=== PATIENT | male | born 1940 | race Caucasian/White ===

== ENCOUNTER 2018-05-13 13:37 | Inpatient (IN) | payer OTHER ==
--- OUTSIDE RECORDS SUMMARY | 2018-05-13 13:56 | XMS REPORT | Clinical Summary ---
:1940 Author Organization [facility] Address [address] [place] [address] Care Team Providers Name Role Phone Samson Rose MD Primary Care Provider Allergies Active Allergy Reactions Severity Noted Date Comments Morphine Other (See Comments) High 09/06/2016 Hallucinations, Disorientation, & Agitation Current Medications Prescription Sig. Disp. Refills Start Date End Date Status tiotropium bromide Inhale 1 Act Active (SPIRIVA RESPIMAT) daily. 2.5 mcg/actuation mist tamsulosin Take 0.4 mg by Active (FLOMAX) 0.4 mg mouth every capsule,extended morning. release 24hr acetaminophen Take 500 mg by Active (TYLENOL) 500 MG mouth nightly as tablet needed for mild pain. polyethylene Take 17 g by Active glycol (MIRALAX) mouth daily. 17 gram packet sulfamethoxazole-t Take 1 tablet by Active rimethoprim mouth 2 (two) (BACTRIM SS) times a day. 400-80 mg per !!!!!(Time tablet Critical) PLEASE GIVE AT 8AM & 8PM)!!!!! aspirin (ECOTRIN) Take 81 mg by Active 81 MG enteric mouth daily. coated tablet nitroglycerin Place 0.4 mg Active (NITROSTAT) 0.4 MG under the tongue SL tablet every 5 (five) minutes as needed for chest pain. docusate sodium Take 100 mg by Active (COLACE) 100 MG mouth every capsule morning. clopidogrel Take 75 mg by Active (PLAVIX) 75 mg mouth daily. tablet furosemide (LASIX) Take 80 mg by Active 80 mg tablet mouth 2 (two) times a day. (AM & 5PM) fluticasone-vilant Inhale 1 Active daria (BREO inhalations once ELLIPTA) 100-25 daily. mcg/dose blister with device powder for inhalation ipratropium-albute Take 3 mL by Active rol (DUO-NEB) nebulization 3 0.5-2.5 mg/mL (three) times a nebulizer day. metoprolol Take 12.5 mg by Active tartrate mouth 2 (two) (LOPRESSOR) 25 mg times a day. tablet NIFEdipine XL Take 30 mg by Active (PROCARDIA XL) 30 mouth daily. MG 24 hr tablet potassium chloride Take 20 mEq by Active (K-DUR) 20 MEQ CR mouth daily. tablet albuterol Inhale 2 puffs Active (VENTOLIN HFA) 90 every 6 (six) mcg/actuation hours as needed inhaler for wheezing or shortness of breath. levothyroxine Take 50 mcg by Active (SYNTHROID, mouth every LEVOXYL) 50 mcg morning. tablet metoprolol Take 12.5 mg by 10/29/19 Discontinued tartrate mouth 2 (two) 18 (LOPRESSOR) 25 mg times a day. tablet NIFEdipine XL Take 30 mg by 06/29/20 Discontinued (PROCARDIA XL) 30 mouth every 17 MG 24 hr tablet morning. furosemide (LASIX) Take 40 mg by 10/29/19 Discontinued 40 mg tablet mouth daily. 18 Takes 20mg at night ondansetron Take 4 mg by 10/29/19 Discontinued (ZOFRAN) 4 MG mouth every 8 18 tablet (eight) hours as needed for nausea or vomiting. potassium chloride Take 20 mEq by 11/07/19 Discontinued (KLOR-CON) 20 mEq mouth daily. [address] 1 capsule 10/29/19 Discontinued (SPIRIVA) 18 mcg into inhaler and 18 per inhalation inhale once capsule daily. lidocaine Place 1 patch on 10/29/19 Discontinued (LIDODERM) 5 % the skin daily. 18 Remove & Discard patch within 12 hours or as directed by furosemide (LASIX) Take 20 mg by 10/29/19 Discontinued 20 mg tablet mouth nightly. 18 albuterol (PROAIR Inhale 2 puffs 11/07/19 Discontinued HFA,PROVENTIL every 6 (six) 18 HFA,VENTOLIN HFA) hours as needed 90 mcg/actuation for wheezing. inhaler alum-mag Take 30 mL by 06/26/2017 07/26/20 hydroxide-simeth mouth 4 (four) 17 (MAALOX PLUS) times a day as 200-200-20 mg/5 mL needed for suspension indigestion for up to 30 days. bisacodyl Insert 1 06/26/2017 07/26/20 (DULCOLAX) 10 mg suppository (10 17 suppository mg total) into the rectum daily as needed for constipation for up to 30 days. clonIDINE Take 1 tablet 60 tablet 0 06/26/2017 07/01/20 (CATAPRES) 0.1 MG (0.1 mg total) by 17 tablet mouth 2 (two) times a day for 5 days. HYDROcodone-acetam Take 1 tablet by 06/26/2017 07/06/20 inophen (NORCO) mouth every 8 17 10-325 mg per (eight) hours as tablet needed for moderate pain for up to 10 days. Max Daily Amount: 3 tablets docusate sodium Take 1 capsule 60 capsule 0 06/26/2017 07/26/20 (COLACE) 100 MG (100 mg total) by 17 capsule mouth 2 (two) times a day for 30 days. NIFEdipine XL Take 1 tablet (90 30 tablet 0 06/30/2017 07/30/19 (PROCARDIA XL) 90 mg total) by 18 MG 24 hr tablet mouth daily for 30 days. metoprolol 1 tablet 11/07/19 Discontinued succinate XL 18 (TOPROL-XL) 25 mg 24 hr tablet NIFEdipine CC 1 tablet on an 11/07/19 Discontinued (ADALAT CC) 30 MG empty stomach 18 24 hr tablet IPRATROPIUM Inhale 0.5 mg. 11/07/19 Discontinued BROMIDE INHL 18 Active Problems Problem Noted Date Chronic obstructive pulmonary disease (HCC) 11/06/2017 Hip fracture ([facility]) 06/14/2017 Acute post-hemorrhagic anemia 02/26/2017 COPD exacerbation ([facility]) 02/19/2017 Acute deep vein thrombosis (DVT) of right lower extremity ([facility]) 02/12/2017 Cellulitis 01/22/2017 PVD (peripheral vascular disease) ([facility]) 2016 Infection of postoperative wound due to methicillin-resistant 11/30/2016 Staphylococcus aureus PAD (peripheral artery disease) ([facility]) 11/27/2016 Last Assessment & Plan: Doing well with Anti-platelet regime. 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 Postoperative anemia due to acute blood loss 09/27/2016 Essential hypertension 09/27/2016 Chronic deep vein thrombosis (DVT) of both lower extremities (HCC) 09/27/2016 Fever 09/10/2016 Encounters Date Type Specialty Care Team Description 02/03/2018 Office Visit Cardiovascular Mariela PAD (peripheral [place] artery disease) MD Marck (Primary Dx) 02/03/2018 Hospital Radiology Alekare, PAD (peripheral Encounter [place] artery disease) MD Marck 11/06/2017 - [facility] General Internal KurtJatin Acute on chronic diastolic CHF (congestive heart failure), NYHA class 4 (Primary Dx); 11/10/2017 Encounter Medicine MD Wen Chronic obstructive pulmonary disease, unspecified COPD type; Ajit Mcclendon MD Pneumonia of left lung due to infectious organism, unspecified part of lung; Congestive heart failure, unspecified congestive heart failure chronicity, unspecified congestive heart failure type; OPAL (acute kidney injury) 10/28/2017 Office Visit Cardiovascular Mariela PAD (peripheral [place] artery disease) MD Marck (Primary Dx) 10/28/2017 Ancillary Orders Cardiovascular Mariela PAD (peripheral [place] artery disease) MD Marck 06/22/2017 Anesthesia Event Orthopedic Surgery Niesha Coley MD 06/22/2017 Procedure Pass Orthopedic Surgery 06/22/2017 Surgery Orthopedic Surgery Phillip Saleh HEMIARTHROPLASTY, MD HIP 06/16/2017 Orders Only Procedural Cardiology Nicki Black 06/15/2017 Orders Only Procedural Cardiology Nicki Black 06/14/2017 - Hospital Orthopedic Surgery Ajit Mcclendon MD Closed fracture of 06/29/2017 Encounter left hip, initial encounter (Primary Dx) after 05/12/2017 Immunizations Name Dates Previously Given Next Due FLUCELVAX QUAD PF (0.5mL syringe) 06/29/2017 Family History Medical History Relation Name Comments Heart disease Father age 55 Diabetes Mother Relation Name Status Comments Father Mother Social History Tobacco Use Types Packs/Day Years Used Date Former Smoker Cigarettes 1 50 Quit: 09/06/2016 Smokeless Tobacco: Never Used Tobacco Cessation: Ready to Quit: No; Counseling Given: No Alcohol Use Drinks/Week oz/Week Comments No Sex Assigned at Date Recorded Not on file Last Filed Vital Signs Vital Sign Reading Time Taken Blood Pressure 94/55 02/03/2018 10:09 AM CDT Pulse 91 02/03/2018 10:09 AM CDT Temperature 35.8 C (96.4 F) 02/03/2018 10:09 AM CDT Respiratory Rate 14 02/03/2018 10:09 AM CDT Oxygen Saturation 91% 11/10/2017 8:05 AM CDT Inhaled Oxygen Concentration - - Weight 76.2 kg (168 lb) 02/03/2018 10:09 AM CDT Height 167.6 cm (5' 6") 02/03/2018 10:09 AM CDT Body Mass Index 27.12 02/03/2018 10:09 AM CDT Plan of Treatment Date Type Specialty Care Team Description 08/11/2018 Appointment Procedural Cardiology Mati Sierra MD [address] [facility] [address] [place] [address] [id number] 08/11/2018 Office Visit Cardiovascular Mati Sierra MD [address] [address] [phone] Health Maintenance Due Date Last Done Comments SHINGRIX VACCINE (#1) 1988 ZOSTER VACCINE 1998 PNEUMOCOCCAL POLYSACCHARIDE VACCINE AGE 65 AND OVER 12/17/2003 PNEUMOCOCCAL-13 12/17/2003 INFLUENZA VACCINE 02/24/2018 06/29/2017 Implants Implanted Type Area Steel Loader Device Expiration Model / Identifier Date Serial / Lot Cup Actblr Bipolar [id number] Ringloc - [id number] Hip Joint Left: [employer] 01/16/2022 11 [id number] / Implanted: Qty: 1 on 06/22/2017 by Phillip Saleh MD Implants Hip / [id number] Head Fml -6mm Neck Modlr Tpr I W/O Skirt Co-Cr 28mm - [id number] Hip Joint Left: [employer] 05/15/2027 [id number] / Implanted: Qty: 1 on 06/22/2017 by Phillip Saleh MD Implants Hip / [id number] Tprlc 133 Type1 Pps Ho 13.0, Taperloc Complete Stem - [id number] IMPLANT Left: BIOMET, [email or web address] 01/19/2027 [id number] / Implanted: Qty: 1 on 06/22/2017 by Phillip Saleh MD DEVICES Hip / [id number] Cement Bone Full-Dose Premxd W/ Tobr Simplex P Pack 10/Ea - [id number] Surgical N/A: VIKASH 05/26/2017 [id number] / Implanted: 11/27/2016 (Quantity not on file) Bone Cement N/A ORTHOPEDICS / HIPS-KNEES [id number] Cement Bone Full-Dose Premxd W/ Tobr Simplex P Pack 10/Ea - [id number] Surgical N/A: VIKASH 05/26/2017 [id number] / Implanted: 12/04/2016 (Quantity not on file) Bone Cement N/A ORTHOPEDICS / HIPS-KNEES [id number] Drain Wound Hbls Round Radopaq Trocar Corin White 0.18in 15fr - [id number] Surgical N/A: [id number] / Implanted: 12/13/2016 (Quantity not on file) Implants; N/A / Expanders; Extenders; Surgical Wires Fenton Perph Vasclr Ptfe 1.2x10cm 1.65mm - [id number] Vascular N/A: BARD PERIPHERAL 04/23/2021 [id number] / Implanted: Qty: 1 on 09/26/2016 by Levi Huddleston MD Graft N/A VASCULAR / [id number] Graft Vasclr Hemashield Native Gold Str Tube 30cm 8mm - [id number] Vascular N/A: [employer] 10/23/2020 [id number] / Implanted: Qty: 1 on 09/26/2016 by Levi Huddleston MD Graft N/A CHARLENE / [id number] Graft Vasclr Hemashield Native Gold Str Tube 30cm 8mm - [id number] - [id number] Vascular N/A: [employer] 04/25/2021 [id number] / Implanted: Qty: 1 on 11/27/2016 by Levi Huddleston MD Graft N/A CHARLENE [id number] / [id number] Fenton Perph Vasclr Ptfe 1.2x10cm 1.65mm - [id number] Vascular N/A: BARD PERIPHERAL 06/23/2021 [id number] / Implanted: 11/27/2016 (Quantity not on file) Graft N/A VASCULAR / [id number] Pace Maker Stents Procedures Procedure Name Priority Date/Time Associated Comments Diagnosis TRANSFUSE RED BLOOD Routine 03/31/2018 5:45 CELLS PM CDT TRANSFUSE RED BLOOD Routine 03/31/2018 5:[address] ANGIOGRAM ABDOMINAL Routine 02/03/2018 9:15 PAD (peripheral Results for this AORTA AND BILATERAL AM CDT artery disease) procedure are in ILIOFEMORAL RUNOFF W WO the results CONTRAST section. ESTIMATED GFR Routine 02/03/2018 8:22 Results for this AM CDT procedure are in the results section. POC CREATININE Routine 02/03/2018 8:22 Results for this AM CDT procedure are in the results section. XR CHEST 1 VW PORTABLE Routine 11/10/2017 11:05 Results for this AM CDT procedure are in the results section. SMEAR REVIEW Routine 11/10/2017 4:58 Results for this AM CDT procedure are in the results section. ZZESTIMATED GFR Routine 11/10/2017 4:58 Results for this AM CDT procedure are in the results section. MAGNESIUM LEVEL Routine 11/10/2017 4:58 Results for this AM CDT procedure are in the results section. B NATRIURETIC PEPTIDE Routine 11/10/2017 4:58 Results for this AM CDT procedure are in the results section. COMPREHENSIVE METABOLIC Routine 11/10/2017 4:58 Results for this PANEL AM CDT procedure are in the results section. HC COMPLETE BLD COUNT Routine 11/10/2017 4:58 Results for this W/AUTO DIFF AM CDT procedure are in the results section. ZZESTIMATED GFR Routine 11/09/2017 4:31 Results for this AM CDT procedure are in the results section. B NATRIURETIC PEPTIDE Routine 11/09/2017 4:31 Results for this AM CDT procedure are in the results section. COMPREHENSIVE METABOLIC Routine 11/09/2017 4:31 Results for this PANEL AM CDT procedure are in the results section. HC COMPLETE BLD COUNT Routine 11/09/2017 4:31 Results for this W/AUTO DIFF AM CDT procedure are in the results section. ZZESTIMATED GFR Routine 11/08/2017 5:20 Results for this AM CDT procedure are in the results section. B NATRIURETIC PEPTIDE Routine 11/08/2017 5:20 Results for this AM CDT procedure are in the results section. BASIC METABOLIC PANEL Routine 11/08/2017 5:20 Results for this AM CDT procedure are in the results section. HC COMPLETE BLD COUNT Routine 11/08/2017 5:20 Results for this W/AUTO DIFF AM CDT procedure are in the results section. ECHOCARDIOGRAM 2D Routine 11/07/2017 5:12 Results for this COMPLETE W MMODE PM CDT procedure are in SPECTRAL COLOR DOPPLER the results (74912) section. RESPIRATORY PATHOGEN Routine 11/07/2017 10:05 Results for this PANEL AM CDT procedure are in the results section. TROPONIN Routine 11/07/2017 6:18 Results for this AM CDT procedure are in the results section. BILIRUBIN DIRECT Routine 11/07/2017 6:18 Results for this AM CDT procedure are in the results section. ZZESTIMATED GFR Routine 11/07/2017 6:18 Results for this AM CDT procedure are in the results section. PARTIAL THROMBOPLASTIN Routine 11/07/2017 6:18 Results for this TIME (PTT) AM CDT procedure are in the results section. PROTHROMBIN TIME WITH Routine 11/07/2017 6:18 Results for this INR AM CDT procedure are in the results section. HC COMPLETE BLD COUNT Routine 11/07/2017 6:18 Results for this W/AUTO DIFF AM CDT procedure are in the results section. URIC ACID LEVEL Routine 11/07/2017 6:18 Results for this AM CDT procedure are in the results section. T4, FREE Routine 11/07/2017 6:18 Results for this AM CDT procedure are in the results section. THYROID STIMULATING Routine 11/07/2017 6:18 Results for this HORMONE AM CDT procedure are in the results section. PREALBUMIN LEVEL Routine 11/07/2017 6:18 Results for this AM CDT procedure are in the results section. PHOSPHORUS LEVEL Routine 11/07/2017 6:18 Results for this AM CDT procedure are in the results section. LIPID PANEL Routine 11/07/2017 6:18 Results for this AM CDT procedure are in the results section. LACTIC ACID LEVEL Routine 11/07/2017 6:18 Results for this AM CDT procedure are in the results section. COMPREHENSIVE METABOLIC Routine 11/07/2017 6:18 Results for this PANEL AM CDT procedure are in the results section. CREATINE KINASE, TOTAL Routine 11/07/2017 6:18 Results for this (CPK) AM CDT procedure are in the results section. B NATRIURETIC PEPTIDE Routine 11/07/2017 6:18 Results for this AM CDT procedure are in the results section. MAGNESIUM LEVEL Routine 11/07/2017 6:18 Results for this AM CDT procedure are in the results section. US RENAL STAT 11/06/2017 9:21 Results for this PM CDT procedure are in the results section. US ABDOMINAL LIMITED STAT 11/06/2017 9:21 Results for this PM CDT procedure are in the results section. CT CHEST WO CONTRAST STAT 11/06/2017 7:39 Results for this PM CDT procedure are in the results section. ARTERIAL BLOOD GAS STAT 11/06/2017 5:10 Results for this PM CDT procedure are in the results section. B NATRIURETIC PEPTIDE STAT 11/06/2017 4:20 Results for this PM CDT procedure are in the results section. PARTIAL THROMBOPLASTIN STAT 11/06/2017 4:20 Results for this TIME (PTT) PM CDT procedure are in the results section. PROTHROMBIN TIME WITH STAT 11/06/2017 4:20 Results for this INR PM CDT procedure are in the results section. HC COMPLETE BLD COUNT STAT 11/06/2017 4:20 Results for this W/AUTO DIFF PM CDT procedure are in the results section. BLOOD CULTURE, AEROBIC Routine 11/06/2017 4:15 Results for this & ANAEROBIC PM CDT procedure are in the results section. XR CHEST 1 VW PORTABLE STAT 11/06/2017 4:03 Results for this PM CDT procedure are in the results section. WA CRITICAL CARE, E/M Routine 11/06/2017 3:52 Results for this 30-74 MINUTES PM CDT procedure are in the results section. ZZESTIMATED GFR STAT 11/06/2017 3:45 Results for this PM CDT procedure are in the results section. TROPONIN STAT 11/06/2017 3:45 Results for this PM CDT procedure are in the results section. COMPREHENSIVE METABOLIC STAT 11/06/2017 3:45 Results for this PANEL PM CDT procedure are in the results section. ECG 12-LEAD STAT 11/06/2017 3:20 Results for this PM CDT procedure are in the results section. US ANKLE BRACHIAL INDEX Routine 10/28/2017 12:35 PAD (peripheral Results for this PM CDT artery disease) procedure are in the results section. US DUPLEX ARTERIAL Routine 10/28/2017 12:35 PAD (peripheral Results for this LOWER EXTREMITY RIGHT PM CDT artery disease) procedure are in the results section. US DUPLEX AORTA Routine 10/28/2017 12:34 PAD (peripheral Results for this INFERIOR VENA CAVA PM CDT artery disease) procedure are in LIMITED the results section. B NATRIURETIC PEPTIDE Routine 06/29/2017 6:11 Results for this AM DIAGNOSTIC TECHNOLOGIST procedure are in the results section. CBC WITH PLATELET AND Routine 06/29/2017 6:11 Results for this DIFFERENTIAL AM DIAGNOSTIC TECHNOLOGIST procedure are in the results section. ZZESTIMATED GFR Routine 06/29/2017 4:00 Results for this AM DIAGNOSTIC TECHNOLOGIST procedure are in the results section. BASIC METABOLIC PANEL Routine 06/29/2017 4:00 Results for this AM DIAGNOSTIC TECHNOLOGIST procedure are in the results section. MAGNESIUM LEVEL Routine 06/29/2017 4:00 Results for this AM DIAGNOSTIC TECHNOLOGIST procedure are in the results section. ZZESTIMATED GFR Routine 06/28/2017 4:00 Results for this AM DIAGNOSTIC TECHNOLOGIST procedure are in the results section. BASIC METABOLIC PANEL Routine 06/28/2017 4:00 Results for this AM DIAGNOSTIC TECHNOLOGIST procedure are in the results section. B NATRIURETIC PEPTIDE Routine 06/28/2017 4:00 Results for this AM DIAGNOSTIC TECHNOLOGIST procedure are in the results section. CBC WITH PLATELET AND Routine 06/28/2017 4:00 Results for this DIFFERENTIAL AM DIAGNOSTIC TECHNOLOGIST procedure are in the results section. MAGNESIUM LEVEL Routine 06/28/2017 4:00 Results for this AM DIAGNOSTIC TECHNOLOGIST procedure are in the results section. B NATRIURETIC PEPTIDE Routine 06/27/2017 5:02 Results for this AM DIAGNOSTIC TECHNOLOGIST procedure are in the results section. CBC WITH PLATELET AND Routine 06/27/2017 5:02 Results for this DIFFERENTIAL AM DIAGNOSTIC TECHNOLOGIST procedure are in the results section. ZZESTIMATED GFR Routine 06/27/2017 4:00 Results for this AM DIAGNOSTIC TECHNOLOGIST procedure are in the results section. MAGNESIUM LEVEL Routine 06/27/2017 4:00 Results for this AM DIAGNOSTIC TECHNOLOGIST procedure are in the results section. BASIC METABOLIC PANEL Routine 06/27/2017 4:00 Results for this AM DIAGNOSTIC TECHNOLOGIST procedure are in the results section. ZZESTIMATED GFR Routine 06/26/2017 5:00 Results for this AM DIAGNOSTIC TECHNOLOGIST procedure are in the results section. B NATRIURETIC PEPTIDE Routine 06/26/2017 5:00 Results for this AM DIAGNOSTIC TECHNOLOGIST procedure are in the results section. HC COMPLETE BLD COUNT Routine 06/26/2017 5:00 Results for this W/AUTO DIFF AM DIAGNOSTIC TECHNOLOGIST procedure are in the results section. BASIC METABOLIC PANEL Routine 06/26/2017 5:00 Results for this AM DIAGNOSTIC TECHNOLOGIST procedure are in the results section. XR CHEST 1 VW PORTABLE Routine 06/25/2017 4:07 Results for this PM DIAGNOSTIC TECHNOLOGIST procedure are in the results section. US SCROTAL STAT 06/25/2017 11:13 Results for this AM DIAGNOSTIC TECHNOLOGIST procedure are in the results section. HC COMPLETE BLD COUNT Routine 06/25/2017 5:30 Results for this W/AUTO DIFF AM DIAGNOSTIC TECHNOLOGIST procedure are in the results section. ZZESTIMATED GFR Routine 06/25/2017 4:00 Results for this AM DIAGNOSTIC TECHNOLOGIST procedure are in the results section. BASIC METABOLIC PANEL Routine 06/25/2017 4:00 Results for this AM DIAGNOSTIC TECHNOLOGIST procedure are in the results section. TYPE AND SCREEN Routine 06/24/2017 1:56 Results for this PM DIAGNOSTIC TECHNOLOGIST procedure are in the results section. HC COMPLETE BLD COUNT Routine 06/24/2017 4:04 Results for this W/AUTO DIFF AM DIAGNOSTIC TECHNOLOGIST procedure are in the results section. ZZESTIMATED GFR Routine 06/24/2017 4:00 Results for this AM DIAGNOSTIC TECHNOLOGIST procedure are in the results section. BASIC METABOLIC PANEL Routine 06/24/2017 4:00 Results for this AM DIAGNOSTIC TECHNOLOGIST procedure are in the results section. ZZESTIMATED GFR Routine 06/23/2017 4:20 Results for this AM DIAGNOSTIC TECHNOLOGIST procedure are in the results section. BASIC METABOLIC PANEL Routine 06/23/2017 4:20 Results for this AM DIAGNOSTIC TECHNOLOGIST procedure are in the results section. CBC WITH PLATELET AND Routine 06/23/2017 4:20 Results for this DIFFERENTIAL AM DIAGNOSTIC TECHNOLOGIST procedure are in the results section. SURGICAL PATHOLOGY Routine 06/22/2017 4:28 Results for this REQUEST PM DIAGNOSTIC TECHNOLOGIST procedure are in the results section. XR PELVIS 1 OR 2 VW Routine 06/22/2017 4:25 Results for this PM DIAGNOSTIC TECHNOLOGIST procedure are in the results section. HEMOGLOBIN & HEMATOCRIT STAT 06/22/2017 4:06 Results for this PM DIAGNOSTIC TECHNOLOGIST procedure are in the results section. POC GLUCOSE Routine 06/22/2017 3:52 Results for this PM DIAGNOSTIC TECHNOLOGIST procedure are in the results section. OR FL > 1 HOUR Routine 06/22/2017 3:00 Results for this PM DIAGNOSTIC TECHNOLOGIST procedure are in the results section. GRAM STAIN Timed 06/22/2017 2:14 Results for this PM DIAGNOSTIC TECHNOLOGIST procedure are in the results section. AFB STAIN Timed 06/22/2017 2:14 Results for this PM DIAGNOSTIC TECHNOLOGIST procedure are in the results section. FUNGUS SMEAR Timed 06/22/2017 2:14 Results for this PM DIAGNOSTIC TECHNOLOGIST procedure are in the results section. JOINT FLUID CULTURE Timed 06/22/2017 2:14 Results for this PM DIAGNOSTIC TECHNOLOGIST procedure are in the results section. AFB CULTURE Timed 06/22/2017 2:14 Results for this PM DIAGNOSTIC TECHNOLOGIST procedure are in the results section. FUNGUS CULTURE Timed 06/22/2017 2:14 Results for this PM DIAGNOSTIC TECHNOLOGIST procedure are in the results section. ANAEROBIC CULTURE Timed 06/22/2017 2:14 Results for this PM DIAGNOSTIC TECHNOLOGIST procedure are in the results section. ARTERIAL LINE Routine 06/22/2017 1:19 PM DIAGNOSTIC TECHNOLOGIST Procedure Note - Levi Balderas MD - 06/22/2017 1:19 PM DIAGNOSTIC TECHNOLOGIST Arterial line Performed by: LEVI BALDERAS Authorized by: LEVI BALDERAS Patient Location: OR Staff: Anesthesiologist: LEVI BALDERAS Performed by: Anesthesiologist Pre-procedure: patient identified, IV checked, site and side verified, risks and benefits discussed, procedure verified, surgical consent complete, patient position confirmed, monitors and equipment checked and pre-op evaluation complete MSBT: antiseptic used, all elements of maximal sterile barrier technique followed, hand hygiene performed, cap/gown used by other personnel and solutions labeled Indications: Indications: hemodynamic monitoring Anesthesia: Anesthesia: General Procedure Details: Arterial Line placement: Placed post induction Line placement site: Radial Line placement side: Right Arterial line gauge: 20 G Number of attempts: 1 Ultrasound guidance used: No Post-procedure: Post-procedure: Sterile dressing applied Post procedure circulation, sensation, movement: Unchanged and normal Patient tolerance: Patient tolerated the procedure well with no immediate complications HEMIARTHROPLASTY, HIP 06/22/2017 1:00 LEFT FEMORAL PM DIAGNOSTIC TECHNOLOGIST NECK FRACTURE POC GLUCOSE Routine 06/22/2017 11:50 Results for this AM DIAGNOSTIC TECHNOLOGIST procedure are in the results section. POTASSIUM LEVEL Routine 06/22/2017 6:20 Results for this AM DIAGNOSTIC TECHNOLOGIST procedure are in the results section. PREPARE RBC Timed 06/22/2017 4:45 Results for this AM DIAGNOSTIC TECHNOLOGIST procedure are in the results section. PREPARE RBC Routine 06/22/2017 4:45 Results for this AM DIAGNOSTIC TECHNOLOGIST procedure are in the results section. TYPE AND SCREEN Routine 06/22/2017 4:45 Results for this AM DIAGNOSTIC TECHNOLOGIST procedure are in the results section. CBC WITH PLATELET AND Routine 06/22/2017 4:45 Results for this DIFFERENTIAL AM DIAGNOSTIC TECHNOLOGIST procedure are in the results section. ZZESTIMATED GFR Routine 06/22/2017 4:00 Results for this AM DIAGNOSTIC TECHNOLOGIST procedure are in the results section. BASIC METABOLIC PANEL Routine 06/22/2017 4:00 Results for this AM DIAGNOSTIC TECHNOLOGIST procedure are in the results section. ZZESTIMATED GFR Routine 06/20/2017 4:00 Results for this AM DIAGNOSTIC TECHNOLOGIST procedure are in the results section. BASIC METABOLIC PANEL Routine 06/20/2017 4:00 Results for this AM DIAGNOSTIC TECHNOLOGIST procedure are in the results section. B NATRIURETIC PEPTIDE Routine 06/18/2017 4:30 Results for this AM DIAGNOSTIC TECHNOLOGIST procedure are in the results section. CBC WITH PLATELET AND Routine 06/18/2017 4:30 Results for this DIFFERENTIAL AM DIAGNOSTIC TECHNOLOGIST procedure are in the results section. ZZESTIMATED GFR Routine 06/18/2017 4:00 Results for this AM DIAGNOSTIC TECHNOLOGIST procedure are in the results section. BASIC METABOLIC PANEL Routine 06/18/2017 4:00 Results for this AM DIAGNOSTIC TECHNOLOGIST procedure are in the results section. MAGNESIUM LEVEL Routine 06/18/2017 4:00 Results for this AM DIAGNOSTIC TECHNOLOGIST procedure are in the results section. B NATRIURETIC PEPTIDE Routine 06/17/2017 4:30 Results for this AM DIAGNOSTIC TECHNOLOGIST procedure are in the results section. CBC WITH PLATELET AND Routine 06/17/2017 4:30 Results for this DIFFERENTIAL AM DIAGNOSTIC TECHNOLOGIST procedure are in the results section. ZZESTIMATED GFR Routine 06/17/2017 4:00 Results for this AM DIAGNOSTIC TECHNOLOGIST procedure are in the results section. BASIC METABOLIC PANEL Routine 06/17/2017 4:00 Results for this AM DIAGNOSTIC TECHNOLOGIST procedure are in the results section. MAGNESIUM LEVEL Routine 06/17/2017 4:00 Results for this AM DIAGNOSTIC TECHNOLOGIST procedure are in the results section. US CAROTID DUPLEX Routine 06/16/2017 5:34 Results for this BILATERAL PM DIAGNOSTIC TECHNOLOGIST procedure are in the results section. NM MYOCARDIAL PERFUSION Routine 06/16/2017 3:18 Results for this STRESS REST 1 DAY PM DIAGNOSTIC TECHNOLOGIST procedure are in the results section. CV STRESS TEST NUCLEAR Routine 06/16/2017 3:18 Results for this CARDIO PM DIAGNOSTIC TECHNOLOGIST procedure are in the results section. XR PELVIS 1 OR 2 VW Routine 06/16/2017 3:04 Results for this PM DIAGNOSTIC TECHNOLOGIST procedure are in the results section. XR FEMUR 2 VW LEFT Routine 06/16/2017 3:04 Results for this PM DIAGNOSTIC TECHNOLOGIST procedure are in the results section. ECHOCARDIOGRAM 2D COMPLETE Routine 06/16/2017 10:22 Results for this W MMODE SPECTRAL COLOR AM DIAGNOSTIC TECHNOLOGIST procedure are in DOPPLER ([id number]) the results section. B NATRIURETIC PEPTIDE Routine 06/16/2017 4:35 Results for this AM DIAGNOSTIC TECHNOLOGIST procedure are in the results section. CBC WITH PLATELET AND Routine 06/16/2017 4:35 Results for this DIFFERENTIAL AM DIAGNOSTIC TECHNOLOGIST procedure are in the results section. URIC ACID LEVEL Routine 06/16/2017 4:00 Results for this AM DIAGNOSTIC TECHNOLOGIST procedure are in the results section. ZZESTIMATED GFR Routine 06/16/2017 4:00 Results for this AM DIAGNOSTIC TECHNOLOGIST procedure are in the results section. COMPREHENSIVE METABOLIC Routine 06/16/2017 4:00 Results for this PANEL AM DIAGNOSTIC TECHNOLOGIST procedure are in the results section. THYROID STIMULATING Routine 06/16/2017 4:00 Results for this HORMONE AM DIAGNOSTIC TECHNOLOGIST procedure are in the results section. T4, FREE Routine 06/16/2017 4:00 Results for this AM DIAGNOSTIC TECHNOLOGIST procedure are in the results section. MAGNESIUM LEVEL Routine 06/16/2017 4:00 Results for this AM DIAGNOSTIC TECHNOLOGIST procedure are in the results section. ZZESTIMATED GFR Routine 06/15/2017 6:20 Results for this AM DIAGNOSTIC TECHNOLOGIST procedure are in the results section. URIC ACID LEVEL Routine 06/15/2017 6:20 Results for this AM DIAGNOSTIC TECHNOLOGIST procedure are in the results section. THYROID STIMULATING Routine 06/15/2017 6:20 Results for this HORMONE AM DIAGNOSTIC TECHNOLOGIST procedure are in the results section. T4, FREE Routine 06/15/2017 6:20 Results for this AM DIAGNOSTIC TECHNOLOGIST procedure are in the results section. COMPREHENSIVE METABOLIC Routine 06/15/2017 6:20 Results for this PANEL AM DIAGNOSTIC TECHNOLOGIST procedure are in the results section. SMEAR REVIEW Routine 06/15/2017 2:00 Results for this AM DIAGNOSTIC TECHNOLOGIST procedure are in the results section. B NATRIURETIC PEPTIDE Routine 06/15/2017 2:00 Results for this AM DIAGNOSTIC TECHNOLOGIST procedure are in the results section. HC COMPLETE BLD COUNT Routine 06/15/2017 2:00 Results for this W/AUTO DIFF AM DIAGNOSTIC TECHNOLOGIST procedure are in the results section. PROTHROMBIN TIME WITH INR Routine 06/15/2017 2:00 Results for this AM DIAGNOSTIC TECHNOLOGIST procedure are in the results section. PARTIAL THROMBOPLASTIN Routine 06/15/2017 2:00 Results for this TIME (PTT) AM DIAGNOSTIC TECHNOLOGIST procedure are in the results section. BILIRUBIN DIRECT Routine 06/14/2017 10:05 Results for this PM DIAGNOSTIC TECHNOLOGIST procedure are in the results section. ZZESTIMATED GFR Routine 06/14/2017 10:05 Results for this PM DIAGNOSTIC TECHNOLOGIST procedure are in the results section. URIC ACID LEVEL Routine 06/14/2017 10:05 Results for this PM DIAGNOSTIC TECHNOLOGIST procedure are in the results section. T4, FREE Routine 06/14/2017 10:05 Results for this PM DIAGNOSTIC TECHNOLOGIST procedure are in the results section. THYROID STIMULATING Routine 06/14/2017 10:05 Results for this HORMONE PM DIAGNOSTIC TECHNOLOGIST procedure are in the results section. COMPREHENSIVE METABOLIC Routine 06/14/2017 10:05 Results for this PANEL PM DIAGNOSTIC TECHNOLOGIST procedure are in the results section. CREATINE KINASE, TOTAL Routine 06/14/2017 10:05 Results for this (CPK) PM DIAGNOSTIC TECHNOLOGIST procedure are in the results section. 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 Multiple computerized reformatted images as well as 3-D volume rendered images were also obtained. Precontrast images of the abdomen were also obtained. 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 There is no evidence of aneurysmal dilatation, dissection, or periaortic fluid collection. 2.Post surgical changes consistent with an infrarenal abdominal aortic bypass graft. The limbs of the graft extend into the pelvis and anastomosis with the distal common femoral artery on the left is noted and at the bifurcation of the superficial femoral and profunda femoral artery on the right. The bypass graft is patent. No adjacent fluid collections. 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 4.The celiac and superior mesenteric arteries are patent. There is no evidence of ostial stenosis. Visualized portions of the superior mesenteric artery and branches of the celiac artery are also widely patent. 5.There is a single right and a single left renal artery. Multifocal calcified atherosclerotic disease is noted within the renal arteries which are normal in course. No definite ostial stenosis. Bilateral lower extremity runoff: Right lower extremity: 1.There is a focal area of stenosis within the proximal superficial femoral artery just distal to the anastomosis of the right limb of the bypass graft. The superficial femoral artery distal to this is occluded. The profunda femoral artery is hypertrophied and widely patent. 2.Contrast opacification is seen within the popliteal artery secondary to intramuscular collaterals from the profunda femoral artery. Popliteal artery is patent without stenosis or aneurysmal dilatation. 3.The tibial/peroneal trunk is patent. The anterior tibial artery is occluded. The posterior tibial and peroneal arteries are visualized the level of ankle. The posterior tibial continues into the foot. The dorsalis pedis is not visualized. Left lower extremity: 1.The profunda femoral artery is patent and the superficial femoral artery is occluded. 2.Contrast opacification of the popliteal artery is noted secondary to intramuscular collaterals from the patent profunda femoral artery. Popliteal artery is patent without stenosis or aneurysmal dilatation. 3.The tibial/peroneal trunk is patent. The anterior tibial artery is patent proximally, however, becomes occluded at its midportion. The peroneal artery is small in caliber and is not visualized at the level of ankle. 4.The posterior tibial artery is patent to the level of ankle and is visualized within the foot. The dorsalis pedis is not seen. Abdomen/pelvis: 1. A small right-sided pleural effusion and moderate left-sided pleural effusion is noted. There is associated lower lobe consolidative airspace disease likely representing atelectasis or pneumonia. 2.Cardiac size is enlarged. A trace pericardial effusion is noted. Pacemaker wires are seen within the right atrium and right ventricle. 3.The liver has a nodular contour. No intrahepatic biliary duct dilatation. No hepatic masses. The main portal vein, superior mesenteric vein, and splenic veins are patent. The patient is status post cholecystectomy. 4.Common bile duct is unremarkable. The pancreas is within normal limits. 5.The spleen is normal in size. Bilateral adrenal hypertrophy is noted. 6.Multiple cysts are seen within the right kidney. Multifocal areas of cortical thinning are seen within the kidneys. Punctate calcifications are also noted bilaterally and may represent calcifications within the arteries of the renal hilum, however, nonobstructing renal stones cannot be excluded. Largest calcifications measure up to 0.4 cm on the right and 0.5 cm on the left. There is no evidence of hydronephrosis. The ureters and bladder are unremarkable. No bladder wall thickening. The prostate is unremarkable. 7.No dilated loops of large or small bowel. A moderate amount of stool seen within the colon, correlate for underlying constipation. A trace amount of ascites is seen. No intraperitoneal free air. 8.An anterior abdominal wall defect is noted measuring approximately 1.8 cm in size, and contains a loop of colon (image 68, series 302). The loop of bowel contained within the hernia sac does not appear dilated or incarcerated. This finding is new when compared to previous examination from 02/27/2017. 9.Nonspecific retroperitoneal lymph nodes are again seen and appear unchanged when compared to previous examination. These may represent reactive lymph nodes. No lymphadenopathy is seen within the abdomen or pelvis. 10.Osteopenia. Patient status post left hip arthroplasty. Evaluation of the bony structures within both lower extremities is unremarkable. 11.Diffuse superficial soft tissue edema. IMPRESSION: 1.Patent infrarenal abdominal aortic bypass graft with bilateral limbs anastomosing with the distal common femoral arteries. 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 3.Single-vessel runoff is noted within both lower extremities provided by the posterior tibial artery. 4.Small right-sided pleural effusion and moderately sized left-sided pleural effusion. 5.New anterior abdominal wall hernia containing a loop of colon. There is no evidence of obstruction or incarceration. [id number] Procedure Note Hm Interface, Radiology Results Incoming - 02/03/2018 9:34 AM CDT EXAMINATION: CT ANGIOGRAM ABDOMINAL AORTA AND BILATERAL ILIOFEMORAL RUNOFF W WO CONTRAST CLINICAL HISTORY: I73.9 Peripheral vascular disease unspecified, PAD s p Excision R groin pseudoaneurysm w Redo ilio-fem bypass TECHNIQUE: Multiple CT angiographic images of the abdomen, pelvis, and bilateral lower extremities were obtained during intravenous administration of iodinated contrast. Multiple computerized reformatted images as well as 3-D volume rendered images were also obtained. Precontrast images of the abdomen were also obtained. COMPARISON: CT abdomen and pelvis with contrast from 02/27/2017 FINDINGS: CTA: 1. 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 There is no evidence of aneurysmal dilatation, dissection, or periaortic fluid collection. 2. Post surgical changes consistent with an infrarenal abdominal aortic bypass graft. The limbs of the graft extend into the pelvis and anastomosis with the distal common femoral artery on the left is noted and at the bifurcation of the superficial femoral and profunda femoral artery on the right. The bypass graft is patent. No adjacent fluid collections. 3. The patient's chilkat infrarenal abdominal aorta, bilateral common iliac, internal iliac, external iliac, and common femoral arteries are occluded. 4. The celiac and superior mesenteric arteries are patent. There is no evidence of ostial stenosis. Visualized portions of the superior mesenteric artery and branches of the celiac artery are also widely patent. 5. There is a single right and a single left renal artery. Multifocal calcified atherosclerotic disease is noted within the renal arteries which are normal in course. No definite ostial stenosis. Bilateral lower extremity runoff: Right lower extremity: 1. There is a focal area of stenosis within the proximal superficial femoral artery just distal to the anastomosis of the right limb of the bypass graft. The superficial femoral artery distal to this is occluded. The profunda femoral artery is hypertrophied and widely patent. 2. Contrast opacification is seen within the popliteal artery secondary to intramuscular collaterals from the profunda femoral artery. Popliteal artery is patent without stenosis or aneurysmal dilatation. 3. The tibial/peroneal trunk is patent. The anterior tibial artery is occluded. The posterior tibial and peroneal arteries are visualized the level of ankle. The posterior tibial continues into the foot. The dorsalis pedis is not visualized. Left lower extremity: 1. The profunda femoral artery is patent and the superficial femoral artery is occluded. 2. Contrast opacification of the popliteal artery is noted secondary to intramuscular collaterals from the patent profunda femoral artery. Popliteal artery is patent without stenosis or aneurysmal dilatation. 3. The tibial/peroneal trunk is patent. The anterior tibial artery is patent proximally, however, becomes occluded at its midportion. The peroneal artery is small in caliber and is not visualized at the level of ankle. 4. The posterior tibial artery is patent to the level of ankle and is visualized within the foot. The dorsalis pedis is not seen. Abdomen/pelvis: 1. A small right-sided pleural effusion and moderate left-sided pleural effusion is noted. There is associated lower lobe consolidative airspace disease likely representing atelectasis or pneumonia. 2. Cardiac size is enlarged. A trace pericardial effusion is noted. Pacemaker wires are seen within the right atrium and right ventricle. 3. The liver has a nodular contour. No intrahepatic biliary duct dilatation. No hepatic masses. The main portal vein, superior mesenteric vein, and splenic veins are patent. The patient is status post cholecystectomy. 4. Common bile duct is unremarkable. The pancreas is within normal limits. 5. The spleen is normal in size. Bilateral adrenal hypertrophy is noted. 6. Multiple cysts are seen within the right kidney. Multifocal areas of cortical thinning are seen within the kidneys. Punctate calcifications are also noted bilaterally and may represent calcifications within the arteries of the renal hilum, however, nonobstructing renal stones cannot be excluded. Largest calcifications measure up to 0.4 cm on the right and 0.5 cm on the left. There is no evidence of hydronephrosis. The ureters and bladder are unremarkable. No bladder wall thickening. The prostate is unremarkable. 7. No dilated loops of large or small bowel. A moderate amount of stool seen within the colon, correlate for underlying constipation. A trace amount of ascites is seen. No intraperitoneal free air. 8. An anterior abdominal wall defect is noted measuring approximately 1.8 cm in size, and contains a loop of colon (image 68, series 302). The loop of bowel contained within the hernia sac does not appear dilated or incarcerated. This finding is new when compared to previous examination from 02/27/2017. 9. Nonspecific retroperitoneal lymph nodes are again seen and appear unchanged when compared to previous examination. These may represent reactive lymph nodes. No lymphadenopathy is seen within the abdomen or pelvis. 10. Osteopenia. Patient status post left hip arthroplasty. Evaluation of the bony structures within both lower extremities is unremarkable. 11. Diffuse superficial soft tissue edema. IMPRESSION: 1. Patent infrarenal abdominal aortic bypass graft with bilateral limbs anastomosing with the distal common femoral arteries. 2. 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 3. Single-vessel runoff is noted within both lower extremities provided by the posterior tibial artery. 4. Small right-sided pleural effusion and moderately sized left-sided pleural effusion. 5. New anterior abdominal wall hernia containing a loop of colon. There is no evidence of obstruction or incarceration. [facility]-[id number] Performing Organization Address City/[facility]/Zipcode Phone Number [facility] [address] [place] [address] Estimated GFR (02/03/2018 8:22 AM) GFR Non Af Amer 53 (A) mL/min/1.73 m2 [facility] DEPARTMENT OF PATHOLOGY AND [employer] MEDICINE GFR Af Amer 65 mL/min/1.73 m2 [facility] DEPARTMENT OF Comment: PATHOLOGY AND GENOMIC Chronic kidney disease: <60 mL/min/1.73m2 MEDICINE Kidney failure: <15 mL/min/1.73m2 The estimated GFR is calculated from the IDMS-traceable Modification of Diet in Renal Disease Equation. The accuracy of the calculation is poor when the creatinine is normal. Calculated values >90 mL/min/1.73m2 are not reported. This equation has not been validated in children (<18 years), women, the elderly (>70 years), or ethnic groups other than Caucasians and Americans. Specimen Blood Performing Organization Address City/[facility]/Zipcode Phone Number [facility] DEPARTMENT OF PATHOLOGY AND [address] [place] [address] [facility] POC creatinine (02/03/2018 8:22 AM) POC creatinine 1.3 (H) 0.7 - 1.2 mg/dl [facility] DEPARTMENT OF PATHOLOGY AND Comment: GENOMIC MEDICINE Meter ID: [id number] Chief Science Officer: Kellee Galloway Specimen Blood Performing Organization Address City/[facility]/Zipcode Phone Number [facility] DEPARTMENT OF PATHOLOGY AND [address] [place] [address] GENOMIC MEDICINE XR Chest 1 Vw Portable (11/10/2017 11:05 AM)Only the most recent of3 resultswithin the time period is included. Narrative Performed At EXAMINATION:[facility]:Pleural Effusions COMPARISON:Single view chest from 11/06/[address] chest without contrast from 11/06/2017 IMPRESSION: An AP radiograph of the chest was submitted for interpretation. Small right-sided pleural effusion identified on prior CT chest without contrast from 11/06/2017 is not well appreciated on chest x-ray. A small-moderate left-sided pleural effusion is again seen unchanged. No focal areas of consolidation. No pneumothorax or midline shift. The mediastinal contours and cardiac silhouette are unchanged. Mild atherosclerotic disease. A calcified lymph node is seen within the left hilar region. Left-sided pacemaker is noted in place. Osteopenia. [facility]-[id number] Procedure Note [facility], Radiology Results Incoming - 11/10/2017 11:24 AM CDT EXAMINATION: XR CHEST 1 VW PORTABLE CLINICAL HISTORY: Pleural Effusions COMPARISON: Single view chest from 11/06/[address] chest without contrast from 11/06/2017 IMPRESSION: An AP radiograph of the chest was submitted for interpretation. Small right-sided pleural effusion identified on prior CT chest without contrast from 11/06/2017 is not well appreciated on chest x-ray. A small- moderate left-sided pleural effusion is again seen unchanged. No focal areas of consolidation. No pneumothorax or midline shift. The mediastinal contours and cardiac silhouette are unchanged. Mild atherosclerotic disease. A calcified lymph node is seen within the left hilar region. Left-sided pacemaker is noted in place. Osteopenia. [facility]-[id number] Performing Organization Address City/[facility]/Zipcode Phone Number [facility] [address] [place] [address] Smear review (11/10/2017 4:58 AM)Only the most recent of2 resultswithin the time period is included. Platelet slide review Decreased (A) [facility] DEPARTMENT OF PATHOLOGY AND GENOMIC MEDICINE Anisocytosis Moderate [facility] DEPARTMENT OF PATHOLOGY AND GENOMIC MEDICINE Ovalocytes Moderate [facility] DEPARTMENT OF PATHOLOGY AND GENOMIC MEDICINE Narrative Performed At RECOLLECT REQUESTED FOR K/AST/ALT/ALP DUE [facility] DEPARTMENT OF PATHOLOGY AND GENOMIC TO SPECIMEN HEMOLYSIS. NOTIFIED MEDICINE SAVI GILL/AnnaleeSW BY JADEN AT11/10/2017 0803 Performing Organization Address City/[facility] Phone Number [facility] DEPARTMENT OF PATHOLOGY AND [address] [place] [phone] GENOMIC MEDICINE Estimated GFR (11/10/2017 4:58 AM)Only the most recent of19 resultswithin the time period is included. GFR Non Af Amer 53 (A) mL/min/1.73 m2 [facility] DEPARTMENT OF PATHOLOGY AND GENOMIC MEDICINE GFR Af Amer 65 mL/min/1.73 m2 [facility] DEPARTMENT OF Comment: PATHOLOGY AND GENOMIC Chronic kidney disease: <60 mL/min/1.73m2 MEDICINE Kidney failure: <15 mL/min/1.73m2 The estimated GFR is calculated from the IDMS-traceable Modification of Diet in Renal Disease Equation. The accuracy of the calculation is poor when the creatinine is normal. Calculated values >90 mL/min/1.73m2 are not reported. This equation has not been validated in children (<18 years), women, the elderly (>70 years), or ethnic groups other than Caucasians and Americans. Specimen Plasma specimen Performing Organization Address City/State/Zipcode Phone Number [facility] DEPARTMENT OF PATHOLOGY AND [address] [place] [address] [employer] [facility] CBC with platelet and differential (11/10/2017 4:58 AM)Only the most recent of17 resultswithin the time period is included. WBC 6.39 4.50 - 11.00 k/uL [facility] DEPARTMENT OF PATHOLOGY AND GENOMIC MEDICINE RBC 3.89 (L) 4.40 - 6.00 m/uL [facility] DEPARTMENT OF PATHOLOGY AND GENOMIC MEDICINE HGB 12.2 (L) 14.0 - 18.0 g/dL [facility] DEPARTMENT OF PATHOLOGY AND GENOMIC MEDICINE HCT 37.8 (L) 41.0 - 51.0 % [facility] DEPARTMENT OF PATHOLOGY AND GENOMIC MEDICINE MCV 97.2 82.0 - 100.0 fL [facility] DEPARTMENT OF PATHOLOGY AND GENOMIC MEDICINE MCH 31.4 27.0 - 34.0 pg [facility] DEPARTMENT OF PATHOLOGY AND GENOMIC MEDICINE MCHC 32.3 31.0 - 37.0 g/dL [facility] DEPARTMENT OF PATHOLOGY AND GENOMIC MEDICINE RDW - SD 55.8 (H) 37.0 - 55.0 fL [facility] DEPARTMENT OF PATHOLOGY AND GENOMIC MEDICINE MPV 10.7 8.8 - 13.2 fL [facility] DEPARTMENT OF PATHOLOGY AND GENOMIC MEDICINE Platelet count 117 (L) 150 - 400 k/uL [facility] DEPARTMENT OF PATHOLOGY AND GENOMIC MEDICINE Nucleated RBC 0.00 /100 WBC [facility] DEPARTMENT OF PATHOLOGY AND GENOMIC MEDICINE Neutrophils 69.2 (H) 39.0 - 69.0 % [facility] DEPARTMENT OF PATHOLOGY AND GENOMIC MEDICINE Lymphocytes 12.4 (L) 25.0 - 45.0 % [facility] DEPARTMENT OF PATHOLOGY AND GENOMIC MEDICINE Monocytes 15.2 (H) 0.0 - 10.0 % [facility] DEPARTMENT OF PATHOLOGY AND GENOMIC MEDICINE Eosinophils 1.6 0.0 - 5.0 % [facility] DEPARTMENT OF PATHOLOGY AND GENOMIC MEDICINE Basophils 0.5 0.0 - 1.0 % [facility] DEPARTMENT OF PATHOLOGY AND GENOMIC MEDICINE Immature granulocytes 1.1 (H)Comment: 0.0 - 1.0 % [facility] DEPARTMENT OF "Immature PATHOLOGY AND GENOMIC granulocytes" MEDICINE (promyelocytes, myelocytes, metamyelocytes) Specimen Blood Narrative Performed At RECOLLECT REQUESTED FOR K/AST/ALT/ALP DUE [facility] DEPARTMENT OF PATHOLOGY AND GENOMIC TO SPECIMEN HEMOLYSIS. NOTIFIED MEDICINE SAVI GILL/M3SW BY JADEN AT11/10/2017 0803 Performing Organization Address City/[facility] Phone Number [facility] DEPARTMENT OF PATHOLOGY AND [address] [place] [address] B natriuretic peptide (11/10/2017 4:58 AM)Only the most recent of13 resultswithin the time period is included. BNP 319 (H) 0 - 100 pg/mL [facility] DEPARTMENT OF PATHOLOGY AND GENOMIC MEDICINE Specimen Blood Performing Organization Address City/[facility] Phone Number [facility] DEPARTMENT OF PATHOLOGY AND [address] [place] [address] Magnesium level (11/10/2017 4:58 AM)Only the most recent of8 resultswithin the time period is included. Magnesium 2.4 1.6 - 2.4 mg/dL [facility] DEPARTMENT OF PATHOLOGY AND GENOMIC MEDICINE Specimen Plasma specimen Performing Organization Address City/[facility] Phone Number [facility] DEPARTMENT OF PATHOLOGY AND [address] [place] [address] Comprehensive metabolic panel (11/10/2017 4:58 AM)Only the most recent of7 resultswithin the time period is included. Sodium 135 135 - 148 mEq/L [facility] DEPARTMENT OF PATHOLOGY AND GENOMIC MEDICINE Potassium SEE COMMENT 3.5 - 5.0 mEq/L [facility] DEPARTMENT OF Comment: PATHOLOGY AND GENOMIC Footnote--------- MEDICINE UNABLE TO REPORT DUE TO SPECIMEN HEMOLYSIS. Chloride 96 (L) 98 - 112 mEq/L [facility] DEPARTMENT OF PATHOLOGY AND GENOMIC MEDICINE CO2 26 24 - 31 mEq/L [facility] DEPARTMENT OF PATHOLOGY AND GENOMIC [facility] Anion gap 13 7 - 15 mEq/L [facility] DEPARTMENT OF Comment: PATHOLOGY AND GENOMIC Starting from October , anion gap calculation MEDICINE no longer incorporates potassium. Please note the change. BUN 24 (H) 8 - 23 mg/dL [facility] DEPARTMENT OF PATHOLOGY AND GENOMIC MEDICINE Creatinine 1.3 (H) 0.7 - 1.2 mg/dL [facility] DEPARTMENT OF PATHOLOGY AND GENOMIC MEDICINE Glucose 89 65 - 99 mg/dL [facility] DEPARTMENT OF PATHOLOGY AND GENOMIC MEDICINE Calcium 8.8 8.8 - 10.2 mg/dL [facility] DEPARTMENT OF PATHOLOGY AND GENOMIC [facility] Protein 6.1 (L) 6.3 - 8.3 g/dL [facility] DEPARTMENT OF Comment: PATHOLOGY AND GENOMIC [place] 4.6-7.0 g/dL MEDICINE 1 week 4.4-7.6 g/dL 7 months-1year5.1-7.3 g/dL 1-2 years5.6-7.5 g/dL >3 years6.0-8.0 g/dL 18-150 6.3-8.3 g/dL Albumin 3.2 (L) 3.5 - 5.0 g/dL [facility] DEPARTMENT OF PATHOLOGY AND GENOMIC MEDICINE A/G ratio 1.1 0.7 - 3.8 [facility] DEPARTMENT OF PATHOLOGY AND GENOMIC MEDICINE Alkaline phosphatase SEE COMMENT 40 - 129 U/L [facility] DEPARTMENT OF Comment: PATHOLOGY AND GENOMIC Footnote--------- MEDICINE UNABLE TO REPORT DUE TO SPECIMEN HEMOLYSIS. AST SEE COMMENT 10 - 50 U/L [facility] DEPARTMENT OF Comment: PATHOLOGY AND GENOMIC Footnote--------- MEDICINE UNABLE TO REPORT DUE TO SPECIMEN HEMOLYSIS. ALT SEE COMMENT 5 - 50 U/L [facility] DEPARTMENT OF Comment: PATHOLOGY AND GENOMIC Footnote--------- MEDICINE UNABLE TO REPORT DUE TO SPECIMEN HEMOLYSIS. Total bilirubin 0.7 0.0 - 1.2 mg/dL [facility] DEPARTMENT OF PATHOLOGY AND GENOMIC MEDICINE Specimen Plasma specimen Performing Organization Address City/[facility] Phone Number [facility] DEPARTMENT OF PATHOLOGY AND [address] MEDICINE Basic metabolic panel (11/08/2017 5:20 AM)Only the most recent of12 resultswithin the time period is included. Sodium 138 135 - 148 mEq/L [facility] DEPARTMENT OF PATHOLOGY AND GENOMIC MEDICINE Potassium 3.9 3.5 - 5.0 mEq/L [facility] DEPARTMENT OF PATHOLOGY AND GENOMIC MEDICINE Chloride 96 (L) 98 - 112 mEq/L [facility] DEPARTMENT OF PATHOLOGY AND GENOMIC MEDICINE CO2 30 24 - 31 mEq/L [facility] DEPARTMENT OF PATHOLOGY AND GENOMIC MEDICINE Anion gap 12 7 - 15 mEq/L [facility] DEPARTMENT OF PATHOLOGY Comment: [facility] MEDICINE Starting from October , anion gap calculation no longer incorporates potassium. Please note the change. BUN 31 (H) 8 - 23 mg/dL [facility] DEPARTMENT OF PATHOLOGY AND GENOMIC MEDICINE Creatinine 1.6 (H) 0.7 - 1.2 mg/dL [facility] DEPARTMENT OF PATHOLOGY AND GENOMIC MEDICINE Glucose 93 65 - 99 mg/dL [facility] DEPARTMENT OF PATHOLOGY AND GENOMIC MEDICINE Calcium 9.2 8.8 - 10.2 mg/dL [facility] DEPARTMENT OF PATHOLOGY AND GENOMIC MEDICINE Specimen Plasma specimen Performing Organization Address [facility] Phone Number [facility] DEPARTMENT OF PATHOLOGY AND [address] Echocardiogram complete w contrast and 3D if needed (11/07/2017 5:12 PM) Narrative Performed At [facility] Echocardiography Report [address] [place] [address] Pat.Name:Ellen VENEGAS.ID:[id number] St.Date: 11/07/2017 Refer.MD:AJIT MCCLENDON MD Exam Time: 12:03:00 PM Study Type:Routine Echo Height:65inWeight: 190lb BSA: 1.94 m2 DOBAge:1940,76Y Sex: MALEBP:124/68 HR:76 bpmSonogrphr: Noe Byers RDCS Pat. Stat.:[facility] Study Status:Final Echo Event ID:[id number] Order ID:[id number] Reason for Study:EVAL FOR CHF, Ischemic event/[place] without chest pain History / Clinical:COPD, Coronary Artery Disease, Edema, Hyperlipidemia, Hypertension, Stroke Procedures:2D Echo, Colorflow Doppler, Portable, Intravenous Definity Contrast Race:C SUMMARY: LV EF is normal RV size is moderately enlarged. RV systolic function is mildly depressed. Severe tricuspid regurgitation Diastolic dysfunction Grade II (Moderate): Impaired relaxation with elevated LV filling pressures. Estimated PA systolic pressure is 36 mmHg, assuming a mean RAP of at least 20 mmHg. FINDINGS: LV: LV size is normal. There is mild concentric LV hypertrophy. LVEF is normal. Overall wall motion is normal. Septal motionis paradoxical secondary to RV systolic pressure overload.Estimated EF is 55-59%. RV: RV size is moderately enlarged. A pacemaker wire is seen in theRV. RV systolic function is mildly depressed. LA: LA volume is mildly enlarged. RA: RA volume is enlarged. A pacemaker wire is seen. AO: Aortic root diameter is normal. CINDY: No pericardial effusion. AV: Moderate calcification of AV leaflets. A trace of aortic regurgitation. MV: Mild mitral annular calcification. Mild mitral regurgitation. PV: Pulmonic valve not well seen. A trace of pulmonic regurgitation. TV: Dilated tricuspid annulus. Severe tricuspid regurgitation Sanches: Diastolic dysfunction Grade II (Moderate): Impaired relaxationwith elevated LV filling pressures. Other:Estimated PA systolic pressure is 36 mmHg, assuming a mean RAPof at least 20 mmHg. MEASUREMENTS: 2D Parasternal [place] LVOT 2.1 cmLA Ds4.5 cm LVIDd4.8 cmIndex2.5 cm/m Ao An2.2 cm LVIDs2.6 cmAo Rtd 3.4 cm Index1.8 cm/m IVSd 1.2 cm LV Ufbp846.9 g(122-174) LVPWd1.2 cmRWT0.6 LA Sng Plane LA Area 24.7 cm2(8.8-23.4) LA Vol76.4 ml Index39.4 ml/m LA LngAx 6.5 cm DOPPLER LVOT Stroke Vol LVOT 2.1 cmLVOT SV 44.1 ml LVOT TVI12.7 cmLVOT CO3.1 l/min LVOT Tm273 cdinOS51 bpm Signed 11/07/2017 07:54 PM Myles Heaton MD Procedure Note Interface, Radiology Results In - 11/07/2017 7:54 PM CDT Echocardiography Report [address] [place] [address] Pat.Name: CHERRY VENEGAS Pat.ID: [id number] .Date: 11/07/2017 Refer.MD: AJIT MCCLENDON MD Exam Time: 12:03:00 PM Study Type:Routine Echo Height: 65in Weight: 190lb BSA: 1.94 m2 Age: 3 1940,76Y Sex: MALE BP: 124/68 HR: 76 bpm Sonogrphr: Noe Byers RDCS Pat. Stat.:Inpatient Room: [facility] Study Status:Final Echo Event ID:[id number] Order ID: [id number] Reason for Study:EVAL FOR CHF, Ischemic event/[place] without chest pain History / Clinical:COPD, Coronary Artery Disease, Edema, Hyperlipidemia, Hypertension, Stroke Procedures:2D Echo, Colorflow Doppler, Portable, Intravenous Definity Contrast Race: C SUMMARY: LV EF is normal RV size is moderately enlarged. RV systolic function is mildly depressed. Severe tricuspid regurgitation Diastolic dysfunction Grade II (Moderate): Impaired relaxation with elevated LV filling pressures. Estimated PA systolic pressure is 36 mmHg, assuming a mean RAP of at least 20 mmHg. FINDINGS: LV: LV size is normal. There is mild concentric LV hypertrophy. LV EF is normal. Overall wall motion is normal. Septal motion is paradoxical secondary to RV systolic pressure overload. Estimated EF is 55-59%. RV: RV size is moderately enlarged. A pacemaker wire is seen in the RV. RV systolic function is mildly depressed. LA: LA volume is mildly enlarged. RA: RA volume is enlarged. A pacemaker wire is seen. AO: Aortic root diameter is normal. CINDY: No pericardial effusion. AV: Moderate calcification of AV leaflets. A trace of aortic regurgitation. MV: Mild mitral annular calcification. Mild mitral regurgitation. PV: Pulmonic valve not well seen. A trace of pulmonic regurgitation. TV: Dilated tricuspid annulus. Severe tricuspid regurgitation Sanches: Diastolic dysfunction Grade II (Moderate): Impaired relaxation with elevated LV filling pressures. Other: Estimated PA systolic pressure is 36 mmHg, assuming a mean RAP of at least 20 mmHg. MEASUREMENTS: 2D Parasternal [place] LVOT 2.1 cm LA Ds 4.5 cm LVIDd 4.8 cm Index 2.5 cm/m Ao An 2.2 cm LVIDs 2.6 cm Ao Rtd 3.4 cm Index 1.8 cm/m IVSd 1.2 cm LV Mass 195.9 g (122-174) LVPWd 1.2 cm RWT 0.6 LA Sng Plane LA Area 24.7 cm2 (8.8-23.4) LA Vol 76.4 ml Index 39.4 ml/m LA LngAx 6.5 cm DOPPLER LVOT Stroke Vol LVOT 2.1 cm LVOT SV 44.1 ml LVOT TVI 12.7 cm LVOT CO 3.1 l/min LVOT Tm 273 msec HR 70 bpm Signed 11/07/2017 07:54 PM Myles Heaton MD Performing Organization Address [facility] Phone Number [facility] [address] [place] [address] Respiratory pathogen panel (11/07/2017 10:05 AM) Respiratory pathogen Negative for all pathogens tested: [facility] DEPARTMENT OF panel Negative for Adenovirus PATHOLOGY AND GENOMIC Negative for Coronavirus HKU1 MEDICINE Negative for Coronavirus NL63 Negative for Coronavirus 229E Negative for Coronavirus OC43 Negative for Human Metapneumovirus Negative for Rhinovirus/Enterovirus Negative for Influenza A Negative for Influenza A/H1 Negative for Influenza A/H3 Negative for Influenza A/H1-2009 Negative for Influenza B Negative for Parainfluenza Virus 1 Negative for Parainfluenza Virus 2 Negative for Parainfluenza Virus 3 Negative for Parainfluenza Virus 4 Negative for Respiratory Syncytial Virus Negative for Bordetella pertussis Negative for Chlamydophila pneumoniae Negative for Mycoplasma pneumoniae This real-time PCR assay detects the presence of nucleic acids (RNA or DNA) for the respiratory pathogens listed. A result of "Not-detected" does not exclude the possibility of the presence of one or more pathogens at concentrations less than the detectable limits of the assay. Comment: Specimen Information Specimen Source: Nares Specimen Site: Not specified Specimen Nares - Not specified Performing Organization Address [facility] Phone Number [facility] DEPARTMENT OF PATHOLOGY AND [address] [place] [address] GENOMIC MEDICINE Troponin (11/07/2017 6:18 AM)Only the most recent of2 resultswithin the time period is included. Troponin <0.30 0.00 - 0.30 ng/mL [facility] DEPARTMENT OF PATHOLOGY Comment: AND GENOMIC MEDICINE 0.30 - 1.49 ng/mlMay indicate increased risk of acute coronary syndrome. >=1.5 ng/mlConsistent with acute myocardial infarction. The diagnostic value of a single normal or non-diagnostic result is questionable.Serial samples at 2-6 hour intervals are required to rule out acute myocardial injury. Specimen Blood Performing Organization Address [facility] Phone Number [facility] DEPARTMENT OF PATHOLOGY AND [address] [place] [address] Partial thromboplastin time, activated (11/07/2017 6:18 AM)Only the most recent of3 resultswithin the time period is included. PTT 37.2 (H) 23.0 - 36.0 sec [facility] DEPARTMENT OF PATHOLOGY Comment: AND [facility] PTT therapeutic range for unfractionated heparin is 61.0-112.0 seconds which corresponds to Anti-Xa 0.3-0.7 U/ml. Specimen Blood Performing Organization Address [facility] Phone Number [facility] DEPARTMENT OF PATHOLOGY AND [address] [place] [address] Prothrombin time with INR (11/07/2017 6:18 AM)Only the most recent of3 resultswithin the time period is included. Prothrombin time 16.3 (H) 12.0 - 15.0 sec [facility] DEPARTMENT OF PATHOLOGY AND [employer] [facility] INR 1.3 [facility] DEPARTMENT OF Comment: PATHOLOGY AND GENOMIC The International Normalized Ratio (INR) is a therapeutic MEDICINE monitoring tool for patients who are stable on oral anticoagulant therapy. An INR of 2.0-3.0 is suggested for deep vein thrombosis/pulmonary embolism. Specimen Blood Performing Organization Address [facility] Phone Number [facility] DEPARTMENT OF PATHOLOGY AND [address] [place] [address] Uric acid level (11/07/2017 6:18 AM)Only the most recent of4 resultswithin the time period is included. Uric acid 8.7 (H) 3.4 - 7.0 mg/dL [facility] DEPARTMENT OF PATHOLOGY AND [employer] [facility] Specimen Blood Performing Organization Address [facility] Phone Number [facility] DEPARTMENT OF PATHOLOGY AND [address] [place] [address] Thyroid stimulating hormone (11/07/2017 6:18 AM)Only the most recent of4 resultswithin the time period is included. TSH 3.07 0.27 - 4.20 uIU/mL [facility] DEPARTMENT OF PATHOLOGY AND GENOMIC MEDICINE Specimen Blood Performing Organization Address [facility] Phone Number [facility] DEPARTMENT OF PATHOLOGY AND [address] [place] [address] MEDICINE T4, free (11/07/2017 6:18 AM)Only the most recent of4 resultswithin the time period is included. T4, free 1.2 0.9 - 1.7 ng/dL [facility] DEPARTMENT OF PATHOLOGY AND GENOMIC MEDICINE Specimen Blood Performing Organization Address [facility] Phone Number [facility] DEPARTMENT OF PATHOLOGY AND [address] [place] [address] Prealbumin level (11/07/2017 6:18 AM) Prealbumin 11 (L) 16 - 32 mg/dL [facility] DEPARTMENT OF PATHOLOGY AND GENOMIC MEDICINE Specimen Serum Performing Organization Address [facility] Phone Number [facility] DEPARTMENT OF PATHOLOGY AND [address] [place] [address] Phosphorus level (11/07/2017 6:18 AM) Phosphorus 3.9 2.4 - 4.5 mg/dL [facility] DEPARTMENT OF PATHOLOGY AND GENOMIC MEDICINE Specimen Blood Performing Organization Address [facility] Phone Number [facility] DEPARTMENT OF PATHOLOGY AND [address] [place] [address] Lactic acid level (11/07/2017 6:18 AM) Lactic acid 2.4 (H) 0.5 - 2.2 mmol/L [facility] DEPARTMENT OF PATHOLOGY AND GENOMIC MEDICINE Specimen Blood Performing Organization Address [facility] Phone Number [facility] DEPARTMENT OF PATHOLOGY AND [address] [place] [address] Creatine kinase, total (CPK) (11/07/2017 6:18 AM)Only the most recent of2 resultswithin the time period is included. Creatine kinase 72 39 - 308 U/L [facility] DEPARTMENT OF PATHOLOGY AND GENOMIC MEDICINE Specimen Blood Performing Organization Address [facility] Phone Number [facility] DEPARTMENT OF PATHOLOGY AND [address] [place] [address] Bilirubin direct (11/07/2017 6:18 AM)Only the most recent of2 resultswithin the time period is included. Bilirubin direct 0.4 (H) 0.0 - 0.3 mg/dL [facility] DEPARTMENT OF PATHOLOGY AND GENOMIC MEDICINE Specimen Blood Performing Organization Address [facility] Phone Number [facility] DEPARTMENT OF PATHOLOGY AND [address] [place] [address] [facility] MEDICINE Lipid panel (11/07/2017 6:18 AM) Cholesterol 115 <200 mg/dL [facility] DEPARTMENT OF PATHOLOGY AND GENOMIC MEDICINE Triglycerides 51 <150 mg/dL [facility] DEPARTMENT OF PATHOLOGY AND GENOMIC MEDICINE HDL cholesterol 41 >40 mg/dL [facility] DEPARTMENT OF PATHOLOGY AND GENOMIC MEDICINE LDL cholesterol 67Comment: Result <100 mg/dL [facility] DEPARTMENT obtained by direct LDL PATHOLOGY AND GENOMIC measurement MEDICINE Lipid panel interpretation SeeBelow [facility] DEPARTMENT OF Comment: PATHOLOGY AND GENOMIC Total Cholesterol (mg/dL) MEDICINE <200 Desirable 446-083Jkfjbngzdq-vxki >=240High Triglycerides (mg/dL) <150 Normal 177-480Hsclfjewrt-rllr 200-499High >=500Very high HDL Cholesterol (mg/dL) <40Low (male) <40Low (female) LDL Cholesterol (mg/dL) <100 Optimal 100-129Near or above optimal 308-530Qpbsssnyhh-yrii 160-189High >=190Very high Risk Catergories that modify LDL goals. Risk CatergoriesLDL goal (mg/dL) CHD and CHD risk equivalent<100 (10-year risk >20%) Multiple (2+) risk factors <130 (10-year risk=<20%) 0-1 risk factors <160 (<10-year risk) Defining levels of lipids in metabolic syndrome Triglycerides>=150 mg/dL HDL Cholesterol Men<40 mg/dL Women<40 mg/dL Non-HDL cholesterol is a second target for therapy in persons with high triglycerides (>=200 mg/dL) Specimen Blood Performing Organization Address City/[facility]/Zipcode Phone Number [facility] DEPARTMENT OF PATHOLOGY AND [address] [place] [address] [employer] US Renal (11/06/2017 9:21 PM) Narrative Performed At EXAMINATION:US RENAL RADIANT CLINICAL HISTORY:anasarcaplease r o ascites. renal as wellgiven elevated Cr. COMPARISON:Abdominal ultrasound 02/23/2017 FINDINGS: The right kidney knfziogu19 x 4.6 x 4.8 cm, cortical thickness 1.2 cm The left kidney measures9.3 x 5.2 x 5.5 cm, cortical thickness 1.5 cm There is a 2.7 x 2.6 x 2.5 cm benign simple right renal cyst as before. Parenchymal echogenicity is normal bilaterally, there is no hydronephrosis. The urinary bladder is unremarkable. IMPRESSION: Benign renal cyst. No hydronephrosis. [facility]-[id number] Procedure Note Interface, Radiology Results Incoming - 11/06/2017 9:26 PM CDT EXAMINATION: US RENAL CLINICAL HISTORY: anasarca please r o ascites. renal as well given elevated Cr. COMPARISON: Abdominal ultrasound 02/23/2017 FINDINGS: The right kidney measures 10 x 4.6 x 4.8 cm, cortical thickness 1.2 cm The left kidney measures 9.3 x 5.2 x 5.5 cm, cortical thickness 1.5 cm There is a 2.7 x 2.6 x 2.5 cm benign simple right renal cyst as before. Parenchymal echogenicity is normal bilaterally, there is no hydronephrosis. The urinary bladder is unremarkable. IMPRESSION: Benign renal cyst. No hydronephrosis. [facility]-[id number] Performing Organization Address [facility]IPS [facility] Phone Number [employer] [address] [place] [address] US Abdominal Limited (11/06/2017 9:21 PM) Narrative Performed At EXAMINATION:[facility]INAL [facility] CLINICAL H[facility]ORY:anasarcaplease r o ascites. renal as wellgiven elevated Cr. COMPARISON:None. TECHNIQUE: Four-quadrant limited abdominal ultrasound examinations performed to assess ascites. IMPRESSION: There is mild ascites in all 4 quadrants. [facility]-[id number] Procedure Note Interface, Radiology Results Incoming - 11/06/2017 9:25 PM CDT EXAMINATION: US ABDOMINAL LIMITED CLINICAL HISTORY: anasarca please r o ascites. renal as well given elevated Cr. COMPARISON: None. TECHNIQUE: Four-quadrant limited abdominal ultrasound examinations performed to assess ascites. IMPRESSION: There is mild ascites in all 4 quadrants. [facility]-[id number] Performing Organization Address [facility] [employer] Phone Number [employer] [address] [place] [address] CT Chest Wo Contrast (11/06/2017 7:39 PM) Narrative Performed At EXAMINATION: [facility] CT CHEST WO CONTRAST CLINICAL HISTORY: eval for pneumonia TECHNIQUE: Multiple axial images of the chest were obtained without intravenous contrast. The lack of intravenous contrast reduces the sensitivity of detecting solid organ disease and evaluating vasculature. Sagittal and coronal computerized reformatted images were also obtained. CT imaging was performed with iterative reconstruction techniques and/or automated exposure control to reduce radiation dose. COMPARISON: Chest CT 02/28/2017 FINDINGS: 1.A small right pleural effusion and moderate left pleural effusion are similar to previous study. There is associated dependent compressive atelectasis bilaterally. There is no consolidative pneumonia. 2.Mild cardiomegaly is stable. Pacemaker is again noted. There is coronary, aortic and peripheral atherosclerosis. 3.A small pericardial effusion is present. 4.There is mild upper abdominal ascites and moderate body wall edema similar to previous study. 5.No significant thoracic lymph nodes are seen. 6.No acute or significant skeletal abnormality is seen. IMPRESSION: Heart failure and anasarca. No pneumonia. [facility]-[id number] Procedure Note Interface, Radiology Results Incoming - 11/06/2017 7:47 PM CDT EXAMINATION: CT CHEST WO CONTRAST CLINICAL HISTORY: eval for pneumonia TECHNIQUE: Multiple axial images of the chest were obtained without intravenous contrast. The lack of intravenous contrast reduces the sensitivity of detecting solid organ disease and evaluating vasculature. Sagittal and coronal computerized reformatted images were also obtained. CT imaging was performed with iterative reconstruction techniques and/or automated exposure control to reduce radiation dose. COMPARISON: Chest CT 02/28/2017 FINDINGS: 1. A small right pleural effusion and moderate left pleural effusion are similar to previous study. There is associated dependent compressive atelectasis bilaterally. There is no consolidative pneumonia. 2. Mild cardiomegaly is stable. Pacemaker is again noted. There is coronary, aortic and peripheral atherosclerosis. 3. A small pericardial effusion is present. 4. There is mild upper abdominal ascites and moderate body wall edema similar to previous study. 5. No significant thoracic lymph nodes are seen. 6. No acute or significant skeletal abnormality is seen. IMPRESSION: Heart failure and anasarca. No pneumonia. [facility]-[id number] Performing Organization Address City/State/Zipcode Phone Number [facility] [address] [place] [address] Arterial blood gas (11/06/2017 5:10 PM) pH, arterial 7.47 (H) 7.35 - 7.45 [facility] DEPARTMENT OF PATHOLOGY AND GENOMIC MEDICINE pCO2, arterial 42 35 - 45 mmHg [facility] DEPARTMENT OF PATHOLOGY AND GENOMIC MEDICINE pO2, arterial 164 (H) 80 - 90 mmHg [facility] DEPARTMENT OF PATHOLOGY AND GENOMIC MEDICINE Bicarbonate, arterial 30.4 (H) 21.0 - 28.0 mmol/L [facility] DEPARTMENT OF PATHOLOGY AND GENOMIC MEDICINE Base excess, arterial 6 (H) -2 - 2 mEq/L [facility] DEPARTMENT OF PATHOLOGY AND GENOMIC MEDICINE O2 saturation, arterial 99 95 - 100 % [facility] DEPARTMENT OF PATHOLOGY AND GENOMIC MEDICINE Specimen Blood Performing Organization Address City/[facility] Phone Number [facility] DEPARTMENT OF PATHOLOGY AND [address] [place] [phone] [facility] Blood culture, aerobic & anaerobic (11/06/2017 4:15 PM) Blood culture isolate No growth after 5 days of incubation. [facility] DEPARTMENT OF Comment: PATHOLOGY AND GENOMIC Specimen Information MEDICINE Specimen Source: Blood Specimen Site: Antecubital, right Specimen Blood - Antecubital, right Performing Organization Address City/[facility] Phone Number [facility] DEPARTMENT OF PATHOLOGY AND [address] [place] [phone] [facility] CRITICAL CARE (11/06/2017 3:52 PM) Narrative Performed At Jatin Tariq MD 11/06/20175:48 PM Critical Care Performed by: JATIN TARIQ Authorized by: JATIN TARIQ Critical care provider statement: Critical care time (minutes):35 Critical care time was exclusive of:Separately billable procedures and treating other patients and teaching time Critical care was necessary to treat or prevent imminent or life-threatening deterioration of the following conditions:Respiratory failure Critical care was time spent personally by me on the following activities:Blood draw for specimens, ordering and performing treatments and interventions, ordering and review of laboratory studies, development of treatment plan with patient or surrogate, discussions with consultants, ordering and review of radiographic studies, discussions with primary provider, evaluation of patient's response to treatment, examination of patient, review of old charts, re-evaluation of patient's condition and pulse oximetry ECG 12 lead (11/06/2017 3:20 PM) Ventricular rate 79 [facility] MUSE Atrial rate 46 [facility] QRSD interval 174 [facility] QT interval 458 [facility] QTC interval 525 [facility] QRS axis 1 -85 [facility] T wave axis 103 [facility] MUSE EKG impression Ventricular-paced rhythm with occasional premature ventricular complexes-Abnormal ECG-In automated comparison with ECG of 19-FEB-2017 12:42,- premature ventricular complexes are now present-Vent. rate campbell [facility] MUSE s increased BY 3 BPM- Performing Organization Address City/State/Zipcode Phone Number [facility] MUSE [address] [place] [address] Pv ankle brachial index complete (10/28/2017 12:35 PM) Narrative Performed At [facility] Lower Extremity Arterial Physiologic Report [address] [place] Pat.Name:Ellen VENEGAS.ID:[id number] .Date: 10/28/2017Refer.MD:MATI SIERRA MD Exam Time: 10:46:00 AM Study Type:Physiologic Leg DOBAge:1940,76Y Sex: MALE Sonogrphr: Isela Shafer. Stat.:Outpatient CPT - 4: 62027 Echo Event ID:[id number] Order ID:[id number] Reason for Study:Follow up exam post redo ilio-fem bypass. Procedures:09/26/2016 Excision of large right groin hematoma, redo ilio-fem bypass, sartoriousmuscle flap (right) Race:C SUMMARY: DOPPLER SIGNALS /ANALOG WAVEFORMS: ANALOG WAVEFORMS ARTERY RIGHT LEFT Posterior Tibial Biphasic Biphasic Dorsalis Pedis Biphasic Biphasic Patient seen in clinic by Dr. Sierra See same day aorta/iliac arterial duplex exam and lower extremity arterial duplex exam. PHYSICIAN INTERPRETATION: 1.Resting ankle brachial indices suggests moderate lower extremity arterial occlusive disease, bilaterally. 2.Toe brachial indices suggests mild disease on the right and moderate to severe disease on the left. 3.In comparison to study done 04/24/2017 findings demonstrate a decrease in the left toe brachial index. MEASUREMENTS: PRESSURES Right Brachial Brach P163 mmHg Left Brachial Brach P143 mmHg Right Ankle PT AnklePT P113 mmHg Left Ankle PT AnklePT P 95 mmHg Right Ankle DP AnkleDP P120 mmHg Left Ankle DP AnkleDP P105 mmHg Right Great Toe GreatToe P80 mmHg Left Great Toe GreatToe P63 mmHg Right SIERRA PT SIERRA PT0.69 Left SIERRA PT SIERRA PT0.58 Right SIERRA DP SIERRA DP0.74 Left SIERRA DP SIERRA DP0.64 Right TBI TBI 0.49 Left TBI TBI 0.39 Signed 11/02/2017 09:02 PM Tera Malik MD, RPVI Procedure Note Interface, Radiology Results In - 11/02/2017 9:02 PM CDT [facility] Lower Extremity Arterial Physiologic Report [address] [place] [id number] Pat.Name: CHERRY VENEGAS Pat.ID: [id number] .Date: 10/28/2017 Refer.MD: MATI SIERRA MD Exam Time: 10:46:00 AM Study Type:Physiologic Leg Age: 3 1940,76Y Sex: MALE Sonogrphr: YANIV Shafer Pat. Stat.:Outpatient CPT - 4: 71562 Echo Event ID:[id number] Order ID: [id number] Reason for Study:Follow up exam post redo ilio-fem bypass. Procedures:09/26/2016 Excision of large right groin hematoma, redo ilio-fem bypass, sartorious muscle flap (right) Race: C SUMMARY: DOPPLER SIGNALS / ANALOG WAVEFORMS: ANALOG WAVEFORMS ARTERY RIGHT LEFT Posterior Tibial Biphasic Biphasic Dorsalis Pedis Biphasic Biphasic Patient seen in clinic by Dr. Sierra See same day aorta/iliac arterial duplex exam and lower extremity arterial duplex exam. PHYSICIAN INTERPRETATION: 1. Resting ankle brachial indices suggests moderate lower extremity arterial occlusive disease, bilaterally. 2. Toe brachial indices suggests mild disease on the right and moderate to severe disease on the left. 3. In comparison to study done 04/24/2017 findings demonstrate a decrease in the left toe brachial index. MEASUREMENTS: PRESSURES Right Brachial Brach P 163 mmHg Left Brachial Brach P 143 mmHg Right Ankle PT AnklePT P 113 mmHg Left Ankle PT AnklePT P 95 mmHg Right Ankle DP AnkleDP P 120 mmHg Left Ankle DP AnkleDP P 105 mmHg Right Great Toe GreatToe P 80 mmHg Left Great Toe GreatToe P 63 mmHg Right SIERRA PT SIERRA PT 0.69 Left SIERRA PT SIERRA PT 0.58 Right SIERRA DP SIERRA DP 0.74 Left SIERRA DP SIERRA DP 0.64 Right TBI TBI 0.49 Left TBI TBI 0.39 Signed 11/02/2017 09:02 PM Tera Malik MD, RPVI Performing Organization Address City/State/Zipcode Phone Number [facility] [address] [place] [address] PV duplex arterial lower extremity (10/28/2017 12:35 PM) Narrative Performed At [facility] Lower Extremity Arterial Duplex Report [address] [place] [address] Pat.Name:Ellen VENEGAS.ID:[id number] .Date: 10/28/2017Refer.:MATI SIERRA MD Exam Time: 10:13:00 AM Study Type:LE Arterial DOBAge:1940,76Y Sex: MALE Sonogrphr: Lucita Mae RVSCPT - 4: 15200 Echo Event ID:[id number] Order ID:[id number] Reason for Study:Follow up exam post redo ilio-fem bypass. Procedures:09/26/2016 Excision of large right groin hematoma, redo ilio-fem bypass, sartoriousmuscle flap (right) Race:C SUMMARY: DUPLEX SCAN OBSERVATIONS: RIGHT:The ilio-femoral artery bypass is visualized with difficulty due to vessel depth and scar tissue.No colorflow disturbance or elevated velocities are noted at the distal anastomosis.Colorflow disturbance with elevated velocities are noted in the proximal profunda femoris artery. There is calcified plaque in the superficial femoral artery; colorflow and Doppler signals are present with reduced monophasic signals in the proximal segment and then become absent. There is colorflow and diminished Doppler signal in the popliteal, posterior tibial, peroneal and anterior tibial arteries. The proximal to mid segments of the peroneal artery is not visualized. Multiple collaterals are visualized. See same day aorta/iliac arterial duplex exam and lower extremity physiologic exam. PHYSICIAN INTERPRETATION: 1. Technically difficult exam due to limited visualization and patient positioning. 2.Patent distal anastomosis, right ilio-femoral artery bypass. 3.<50% stenosis, right proximal profunda femoris artery (ratio 1.7) 4. 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 MEASUREMENTS: DOPPLER Right SUPERVISORY IT SPECIALIST Prox SUPERVISORY IT SPECIALIST Prox PSV39 cm/s Right SUPERVISORY IT SPECIALIST Distal SUPERVISORY IT SPECIALIST Distal PSV46 cm/s Right SUPERVISORY IT SPECIALIST Mid SUPERVISORY IT SPECIALIST Mid PSV 40 cm/s Right Peroneal Dist Peroneal Dist P25 cm/s Right DEBBIE Prox DEBBIE Prox PSV38 cm/s Right DEBBIE Distal DEBBIE Distal PSV74 cm/s Right Pop Prox Pop Prox PSV32 cm/s Right Pop Mid Pop Mid PSV 34 cm/s Right TP Trunk Prox TP Trunk Prox P53 cm/s Right SFA Prox SFA Prox PSV33 cm/s Right SFA Dist SFA Dist PSV 0 cm/s Right Pop Dist Pop Dist PSV46 cm/s Right Profunda Profunda PSV 229 cm/s Right RUBBER GOODS FINISHER Dist RUBBER GOODS FINISHER Dist PSV 128 cm/s Right SFA Mid SFA Mid PSV0 cm/s Signed 11/02/2017 09:00 PM Tera Malik MD, RPVI Procedure Note Interface, Radiology Results In - 11/02/2017 9:01 PM CDT [facility] Lower Extremity Arterial Duplex Report [address] [facility] [address], [place], [place] [id number] Pat.Name: CHERRY VENEGAS Pat.ID: [id number] .Date: 10/28/2017 Refer.MD: MATI SIERRA MD Exam Time: 10:13:00 AM Study Type:LE Arterial Age: 3 1940,76Y Sex: MALE Sonogrphr: YANIV Shafer CPT - 4: 96658 Echo Event ID:[id number] Order ID: [id number] Reason for Study:Follow up exam post redo ilio-fem bypass. Procedures:09/26/2016 Excision of large right groin hematoma, redo ilio-fem bypass, sartorious muscle flap (right) Race: C SUMMARY: DUPLEX SCAN OBSERVATIONS: RIGHT:The ilio-femoral artery bypass is visualized with difficulty due to vessel depth and scar tissue. No colorflow disturbance or elevated velocities are noted at the distal anastomosis. Colorflow disturbance with elevated velocities are noted in the proximal profunda femoris artery. There is calcified plaque in the superficial femoral artery; colorflow and Doppler signals are present with reduced monophasic signals in the proximal segment and then become absent. There is colorflow and diminished Doppler signal in the popliteal, posterior tibial, peroneal and anterior tibial arteries. The proximal to mid segments of the peroneal artery is not visualized. Multiple collaterals are visualized. See same day aorta/iliac arterial duplex exam and lower extremity physiologic exam. PHYSICIAN INTERPRETATION: 1. Technically difficult exam due to limited visualization and patient positioning. 2. Patent distal anastomosis, right ilio-femoral artery bypass. 3. <50% stenosis, right proximal profunda femoris artery (ratio 1.7) 4. 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 Right tibial arteries are patent to the foot. MEASUREMENTS: DOPPLER Right SUPERVISORY IT SPECIALIST Prox SUPERVISORY IT SPECIALIST Prox PSV 39 cm/s Right SUPERVISORY IT SPECIALIST Distal SUPERVISORY IT SPECIALIST Distal PSV 46 cm/s Right SUPERVISORY IT SPECIALIST Mid SUPERVISORY IT SPECIALIST Mid PSV 40 cm/s Right Peroneal Dist Peroneal Dist P 25 cm/s Right DEBBIE Prox DEBBIE Prox PSV 38 cm/s Right DEBBIE Distal DEBBIE Distal PSV 74 cm/s Right Pop Prox Pop Prox PSV 32 cm/s Right Pop Mid Pop Mid PSV 34 cm/s Right TP Trunk Prox TP Trunk Prox P 53 cm/s Right SFA Prox SFA Prox PSV 33 cm/s Right SFA Dist SFA Dist PSV 0 cm/s Right Pop Dist Pop Dist PSV 46 cm/s Right Profunda Profunda PSV 229 cm/s Right RUBBER GOODS FINISHER Dist RUBBER GOODS FINISHER Dist PSV 128 cm/s Right SFA Mid SFA Mid PSV 0 cm/s Signed 11/02/2017 09:00 PM Tera Malik MD, RPVI Performing Organization Address City/State/Zipcode Phone Number [facility] [address] [place] [address] PV duplex aorta inferior vena cava limited (10/28/2017 12:34 PM) Narrative Performed At [facility] Aorta-iliac Duplex Report [address] [place], [place] Pat.Name:Ellen VENEGAS.ID:[id number] .Date: 10/28/2017Refer.MD:MATI SIERRA MD Exam Time: 9:42:00 AMStudy Type:Abd. Aorta-Iliac DOBAge:1940,76Y Sex: MALE Sonogrphr: Lucita Mae, RVSPat. Stat.:Outpatient CPT - 4: 66353 Echo Event ID:[id number] Order ID:[id number] Reason for Study:Follow up exam post redo ilio-fem bypass. Procedures:09/26/2016 Excision of large right groin hematoma, redo ilio-fem bypass, sartoriousmuscle flap (right) Race:C SUMMARY: AORTA:The abdominal aorta and iliac arteries are not visualized due to abdominal bowel gas and patients body habitus.There is a right ilio-femoral artery bypass visualized with disturbed colorflow and elevated Doppler signals.Colorflow and Doppler signals are normal throughout all visualized arteries.There is a left to right femoral to femoral artery bypass graft visualized with undisturbed colorflow and Doppler signals. PSV cm/sec ArteryLocationRight Left AortaProximalNot Seen Distal Not Seen CeliacProximal Not Seen SMAProximal Not Seen RenalProximal Not Seen Common iliacProximalNot Seen Not Seen MidNot Seen Not Seen DistalNot Seen Not Seen External iliacProximalNot Seen Not Seen MidNot seen Not Seen DistalNot seen Not Seen HypogastricProximalNot Seen Not Seen Ileo-Fem BypassProximal Anastomosis Not seen Ueaxtusr52 Mid41 Omyfbq379 Distal Anastomosis 149 Left to Right Fem-Fem BypassLeft Mdvhj604 Left Guxd138 Mid Abdomen 109 Right Jpxs012 Right Side Anast 136 See same day lower extremity arterial duplex exam and lower extremity physiologic exam. Technically difficult to visualize due to abdominal bowel gas, patients body habitus and patient movement. PHYSICIAN INTERPRETATION: 1.Aorta, SMA, celiac, common iliac and left external iliac arteries are not visualized.Suggest further testing if clinically indicated. 2.Patent right ilio-femoral artery bypass 3.Patent left to right femoral to femoral artery bypass graft Signed 10/28/2017 08:45 PM Tera Malik MD, [facility] Procedure Note Interface, Radiology Results In - 10/28/2017 8:46 PM CDT [facility] Aorta-iliac Duplex Report [address] [place] [address] Pat.Name: CHERRY VENEGAS Pat.ID: [id number] .Date: 10/28/2017 Refer.MD: MATI SIERRA MD Exam Time: 9:42:00 AM Study Type:Abd. Aorta-Iliac Age: 3 1940,76Y Sex: MALE Sonogrphr: YANIV Shafer Pat. Stat.:Outpatient CPT - 4: 87787 Echo Event ID:[id number] Order ID: [id number] Reason for Study:Follow up exam post redo ilio-fem bypass. Procedures:09/26/2016 Excision of large right groin hematoma, redo ilio-fem bypass, sartorious muscle flap (right) Race: C SUMMARY: AORTA: The abdominal aorta and iliac arteries are not visualized due to abdominal bowel gas and patients body habitus. There is a right ilio-femoral artery bypass visualized with disturbed colorflow and elevated Doppler signals. Colorflow and Doppler signals are normal throughout all visualized arteries. There is a left to right femoral to femoral artery bypass graft visualized with undisturbed colorflow and Doppler signals. PSV cm/sec Artery Location Right Left Aorta Proximal Not Seen Distal Not Seen Celiac Proximal Not Seen SMA Proximal Not Seen Renal Proximal Not Seen Common iliac Proximal Not Seen Not Seen Mid Not Seen Not Seen Distal Not Seen Not Seen External iliac Proximal Not Seen Not Seen Mid Not seen Not Seen Distal Not seen Not Seen Hypogastric Proximal Not Seen Not Seen Ileo-Fem Bypass Proximal Anastomosis Not seen Proximal 32 Mid 41 Distal 142 Distal Anastomosis 149 Left to Right Fem-Fem Bypass Left Anast 111 Left Side 114 Mid Abdomen 109 Right Side 155 Right Side Anast 136 See same day lower extremity arterial duplex exam and lower extremity physiologic exam. Technically difficult to visualize due to abdominal bowel gas, patients body habitus and patient movement. PHYSICIAN INTERPRETATION: 1. Aorta, SMA, celiac, common iliac and left external iliac arteries are not visualized. Suggest further testing if clinically indicated. 2. Patent right ilio-femoral artery bypass 3. Patent left to right femoral to femoral artery bypass graft Signed 10/28/2017 08:45 PM Tera Malik MD, RPVI Performing Organization Address City/State/Zipcode Phone Number [facility] [address] [place] [address] US Scrotal (06/25/2017 11:13 AM) Narrative Performed At EXAMINATION:US SCROTAL RADIANT CLINICAL HISTORY:swelling in scrotal area COMPARISON:None. TECHNIQUE:Sonographic evaluation of the scrotum. Real-time B mode grayscale, Doppler spectral analysis and Doppler color flow imaging was used to assess testicular vasculature. FINDINGS: RIGHT HEMISCROTUM: The right testicle measures 3.9 x 2.9 x 2.2 cm. The right epididymis measures 1.1 x 0.7 x 1.0 cm.Testicularechogenicity is heterogeneous. No intratesticular mass is identified. There is normal color and duplex Doppler flow. The right epididymis is unremarkable. There is no evidence of hydrocele or varicocele. Nonspecific echogenic thickening of the papilliform flexes is noted. Tito edematous thickening of the scrotal wall is seen. LEFT HEMISCROTUM: The left testicle measures 3.3 x 2.1 x 2.0 cm. The left epididymis measures 1 x 0.6 x 0.6 cm.Testicular echogenicity is heterogeneous. No intratesticular masses are identified. There is normal color and duplex Doppler flow. The left epididymis is unremarkable. There is a small hydrocele and mild varicocele. Nonspecific echogenic thickening of the papilliform flexes is noted. Tito edematous thickening of the scrotal wall is seen. IMPRESSION: Finding suggestive of cellulitis of the scrotum. No sonographic evidence of orchitis or epididymitis. No sonographic evidence of torsion. [facility]-[id number] Procedure Note Interface, Radiology Results Incoming - 06/25/2017 12:48 PM DIAGNOSTIC TECHNOLOGIST EXAMINATION: US SCROTAL CLINICAL HISTORY: swelling in scrotal area COMPARISON: None. TECHNIQUE: Sonographic evaluation of the scrotum. Real-time B mode grayscale, Doppler spectral analysis and Doppler color flow imaging was used to assess testicular vasculature. FINDINGS: RIGHT HEMISCROTUM: The right testicle measures 3.9 x 2.9 x 2.2 cm. The right epididymis measures 1.1 x 0.7 x 1.0 cm. Testicular echogenicity is heterogeneous. No intratesticular mass is identified. There is normal color and duplex Doppler flow. The right epididymis is unremarkable. There is no evidence of hydrocele or varicocele. Nonspecific echogenic thickening of the papilliform flexes is noted. Tito edematous thickening of the scrotal wall is seen. LEFT HEMISCROTUM: The left testicle measures 3.3 x 2.1 x 2.0 cm. The left epididymis measures 1 x 0.6 x 0.6 cm. Testicular echogenicity is heterogeneous. No intratesticular masses are identified. There is normal color and duplex Doppler flow. The left epididymis is unremarkable. There is a small hydrocele and mild varicocele. Nonspecific echogenic thickening of the papilliform flexes is noted. Tito edematous thickening of the scrotal wall is seen. IMPRESSION: Finding suggestive of cellulitis of the scrotum. No sonographic evidence of orchitis or epididymitis. No sonographic evidence of torsion. [facility]-[id number] Performing Organization Address City/[facility] Phone Number [facility] [address] [place] [address] Type and screen (06/24/2017 1:56 PM)Only the most recent of2 resultswithin the time period is included. ABO grouping A [facility] DEPARTMENT OF PATHOLOGY AND GENOMIC MEDICINE Rh type POS [facility] DEPARTMENT OF PATHOLOGY AND GENOMIC MEDICINE Antibody screen (gel) NEG [facility] DEPARTMENT OF PATHOLOGY AND GENOMIC MEDICINE Performing Organization Address City/[facility] Phone Number [facility] DEPARTMENT OF PATHOLOGY AND [address] [place] [address] GENOMIC MEDICINE Surgical pathology request (06/22/2017 4:28 PM) [facility] DEPARTMENT OF PATHOLOGY AND GENOMIC MEDICINE Surgical pathology report See link below for PDF [facility] DEPARTMENT OF Lab Report PATHOLOGY AND GENOMIC MEDICINE Result status This is Final Report to [facility] DEPARTMENT OF [id number] PATHOLOGY AND GENOMIC MEDICINE Performing Organization Address City/[facility] Phone Number [facility] DEPARTMENT OF PATHOLOGY AND [address] [place] [address] GENOMIC MEDICINE XR Pelvis 1 Or 2 Vw (06/22/2017 4:25 PM)Only the most recent of2 resultswithin the time period is included. 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 Alignment of the hardware is satisfactory. 2.Osseous structures are demineralized. 3.Mild right hip osteoarthritis. [facility]-[id number] Procedure Note Hm Interface, Radiology Results Incoming - 06/22/2017 4:36 PM DIAGNOSTIC TECHNOLOGIST EXAMINATION: XR PELVIS 1 OR 2 VW CLINICAL HISTORY: Post operative COMPARISON: June 16, 2017 IMPRESSION: 1. 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 Alignment of the hardware is satisfactory. 2. Osseous structures are demineralized. 3. Mild right hip osteoarthritis. [facility]-[id number] Performing Organization Address [facility] Phone Number [facility] [address] [place] [address] Hemoglobin & hematocrit (06/22/2017 4:06 PM) HGB 11.8 (L) 14.0 - 18.0 g/dL [facility] DEPARTMENT OF PATHOLOGY AND GENOMIC MEDICINE HCT 37.6 (L) 41.0 - 51.0 % [facility] DEPARTMENT OF PATHOLOGY AND GENOMIC MEDICINE Specimen Blood Performing Organization Address [facility] Phone Number [facility] DEPARTMENT OF PATHOLOGY AND [address] [place] [address] [facility] POC glucose (06/22/2017 3:52 PM)Only the most recent of2 resultswithin the time period is included. POC glucose 122 (H) 65 - 99 mg/dL [facility] DEPARTMENT OF PATHOLOGY AND Comment: GENOMIC MEDICINE No Action Needed Meter ID: [id number] Chief Science Officer: Delon Yadav Performing Organization Address [facility] Phone Number [facility] DEPARTMENT OF PATHOLOGY AND [address] [place] [address] GENOMIC MEDICINE OR FL > I Hour (06/22/2017 3:00 PM) Narrative Performed At EXAMINATION:OR [place] 1 HOUR [facility] C-arm fluoroscopy was requested in OR. LOCATION:[facility] 19 OR ROOM 3 PROCEDURE:LEFT HIP ARTHROPLASTY START TIME:1300 END TIME:1500 FLUORO TIME:11 SEC DOSE (mGy):2.18 mGy TECH(S):NT IMPRESSION: Separate operative report will be issued by the physician performing the procedure. [id number] Procedure Note Hm Interface, Radiology Results Incoming - 06/22/2017 4:41 PM DIAGNOSTIC TECHNOLOGIST EXAMINATION: OR [place] 1 HOUR C-arm fluoroscopy was requested in OR. LOCATION: [facility] 19 OR ROOM 3 PROCEDURE: LEFT HIP ARTHROPLASTY START TIME: 1300 END TIME: 1500 FLUORO TIME: 11 SEC DOSE (mGy): 2.18 mGy TECH(S): NT IMPRESSION: Separate operative report will be issued by the physician performing the procedure. [id number] Performing Organization Address City/[facility] Phone Number [facility] [address] [place] [phone] Joint fluid culture (06/22/2017 2:14 PM) Joint fluid culture No growth after 4 days. [facility] DEPARTMENT OF isolate Comment: PATHOLOGY AND GENOMIC Specimen Information MEDICINE Specimen Source: Joint Fluid Specimen Site: Hip, left Specimen Joint fluid - Hip, left Performing Organization Address [facility] Phone Number [facility] DEPARTMENT OF PATHOLOGY AND [address] [place] [address] GENOMIC MEDICINE Fungus smear (06/22/2017 2:14 PM) Fungus smear No fungi observed. [facility] DEPARTMENT OF PATHOLOGY AND Comment: GENOMIC MEDICINE Specimen Information Specimen Source: Joint Fluid Specimen Site: Hip, left Specimen Joint fluid - Hip, left Performing Organization Address [facility] Phone Number [facility] DEPARTMENT OF PATHOLOGY AND [address] [place] [address] GENOMIC MEDICINE AFB culture (06/22/2017 2:14 PM) AFB culture isolate No growth after 6 weeks of incubation. [facility] DEPARTMENT OF PATHOLOGY Comment: AND GENOMIC MEDICINE Specimen Information Specimen Source: Joint Fluid Specimen Site: Hip, left Specimen Joint fluid - Hip, left Performing Organization Address [facility] Phone Number [facility] DEPARTMENT OF PATHOLOGY AND [address] [place] [address] GENOMIC MEDICINE Gram stain (06/22/2017 2:14 PM) Gram stain isolate Few WBC's [facility] DEPARTMENT OF PATHOLOGY No organisms seen AND GENOMIC MEDICINE Comment: Specimen Information Specimen Source: Joint Fluid Specimen Site: Hip, left Specimen Joint fluid - Hip, left Performing Organization Address [facility] Phone Number [facility] DEPARTMENT OF PATHOLOGY AND [address] [place] [address] GENOMIC MEDICINE AFB stain (06/22/2017 2:14 PM) AFB stain No acid fast bacilli (AFB) seen. [facility] DEPARTMENT OF PATHOLOGY AND Comment: GENOMIC MEDICINE Specimen Information Specimen Source: Joint Fluid Specimen Site: Hip, left Specimen Joint fluid - Hip, left Performing Organization Address [facility] Phone Number [facility] DEPARTMENT OF PATHOLOGY AND [address] [place] [address] MEDICINE Fungus culture (06/22/2017 2:14 PM) Fungus culture isolate No growth after 4 weeks of incubation. [facility] DEPARTMENT OF Comment: PATHOLOGY AND GENOMIC Specimen Information MEDICINE Specimen Source: Joint Fluid Specimen Site: Hip, left Specimen Joint fluid - Hip, left Performing Organization Address [facility] Phone Number [facility] DEPARTMENT OF PATHOLOGY AND [address] [place] [address] Anaerobic culture (06/22/2017 2:14 PM) Anaerobic culture No anaerobic organisms isolated. [facility] DEPARTMENT OF isolate Comment: PATHOLOGY AND GENOMIC Specimen Information MEDICINE Specimen Source: Joint Fluid Specimen Site: Hip, left Specimen Joint fluid - Hip, left Performing Organization Address [facility] Phone Number [facility] DEPARTMENT OF PATHOLOGY AND [address] [place] [address] Potassium level (06/22/2017 6:20 AM) Potassium 4.2 3.5 - 5.0 mEq/L [facility] DEPARTMENT OF PATHOLOGY AND GENOMIC MEDICINE Specimen Plasma specimen Performing Organization Address [facility] Phone Number [facility] DEPARTMENT OF PATHOLOGY AND [address] [place] [address] [employer] [facility] Prepare RBC, 1 Units (06/22/2017 4:45 AM)Only the most recent of2 resultswithin the time period is included. Product name Red Blood Cells -1, [facility] DEPARTMENT OF Leukored PATHOLOGY AND GENOMIC MEDICINE Unit number [id number] [facility] DEPARTMENT OF PATHOLOGY AND GENOMIC MEDICINE Product code [id number] [facility] DEPARTMENT OF PATHOLOGY AND GENOMIC MEDICINE Dispense status Transfused [facility] DEPARTMENT OF PATHOLOGY AND GENOMIC MEDICINE Blood expiration date [id number] [facility] DEPARTMENT OF PATHOLOGY AND GENOMIC MEDICINE Blood type code 6200 [facility] DEPARTMENT OF PATHOLOGY AND GENOMIC MEDICINE Blood type A POSITIVE [facility] DEPARTMENT OF PATHOLOGY AND GENOMIC MEDICINE Performing Organization Address City/State/Zipcode Phone Number [facility] DEPARTMENT OF PATHOLOGY AND [address] [facility] [place] [address] GENOMIC MEDICINE Us carotid duplex (06/16/2017 5:34 PM) Narrative Performed At [facility] Vascular Ultrasound Laboratory Carotid Artery Duplex Report [id number] [facility] [address], [place] [id number] For quality coordinator purposes, the categorization of the degree of the stenosis of this exam is based on criteria described in the IAC carotid stenosis grading white paper( www.intersocietal.org/Vascular) and Daniel Neely, Olivia Cochran, et al. Carotid artery stenosis: back-scale and Doppler US diagnosis--Society of Radiologists in Ultrasound Consensus Conference. Radiology. 2003 Nov; 229(2):340-6. Pat.Name:Ellen VENEGAS.ID:[id number] .Date: 06/16/2017Refer.MD:AJIT MCCLENDON MD Exam Time: 4:39:00 PMStudy Type:Carotid DOBAge:1940,76Y Sex: MALE Sonogrphr: Campbell Vi, RVTPat. Stat.:Inpatient Room:[id number]: , CPT - 4: 95871 Echo Event ID:[id number] Order ID:[id number] Reason for Study:Patient had history of hypertension, hip fracture, COPD, DVT, PVD, sepsis. Race:C SUMMARY: PHYSICAL ASSESSMENT BloodPulsesCarotid Pressure Carotid TemporalBruit Right IV ++0 Left 149/87 ++0 CAROTID ARTERY SCAN RIGHT:There is hard andcalcified plaque seen in the common carotid artery, bulb area, extending into proximal internal and external carotid artery. Colorfow and Doppler signals are diminished in the internal carotid artery . The vertebral artery is not seen. LEFT: There is hard and calcified plaque seen in the common carotid artery, bulb area, extending into proximal internal and external carotid artery. Colorfow and Doppler signals are diminished in the internal carotid artery. There is antegrade flow seen in the vertebral artery. PRELIMINARY FINDINGS 1. Non-stenotic hard and calcified plaque seen in the common carotid artery, bilaterally. 2. <50% stenosis seen in the internal carotid artery, bilaterally. 3. Diminished flow seen in the internal carotid artery, bilaterally. 4. The right vertebral artery is not seen. 5. Antegrade flow seen in the left vertebral artery. 6. Technically difficult study due to patient breathing and body habitus. PHYSICIAN INTERPRETATION 1. Non-stenotic hard and calcified plaque seen in the common carotid artery, bilaterally. 2. <50% stenosis seen in the internal carotid artery, bilaterally. 3. Diminished flow seen in the internal carotid artery, bilaterally. 4. The right vertebral artery is not seen. 5. Antegrade flow seen in the left vertebral artery. Carotid Findings:RightLeft Verteb.Flw Not Visualized Antegrade Subclavian Biphasic Biphasic MEASUREMENTS: DOPPLER Right CCA Dist CCA Dist PSV74.7 cm/sCCA Dist EDV11.9 cm/s Right CCA Mid CCA Mid PSV 45.9 cm/sCCA Mid EDV 8.83 cm/s Right CCA Prox CCA Prox PSV59.2 cm/sCCA Prox EDV10.4 cm/s Right ECA ECA VQC079 cm/sECA EDV 9.05 cm/s Right ICA Dist ICA Dist PSV40.9 cm/Belen Dist EDV10.7 cm/s Right ICA Mid ICA Mid PSV 31.6 cm/Belen Mid EDV0 cm/s Right ICA Prox ICA Prox PSV35.3 cm/Belen Prox EDV6.83 cm/s Left CCA Dist CCA Dist PSV78.4 cm/sCCA Dist EDV12.4 cm/s Left CCA Mid CCA Mid PSV 66.1 cm/sCCA Mid EDV 7.84 cm/s Left CCA Prox CCA Prox PSV95.8 cm/sCCA Prox EDV15 cm/s Left ECA ECA PSV 65.5 cm/sECA EDV0 cm/s Left ICA Prox ICA Prox PSV29.4 cm/Belen Prox EDV 9.1 cm/s Left Vertebral Vertebral PSV 39.6 cm/sVertebral EDV 16.8 cm/s Right ICA/CCA Ratio ICA/CCA PSV0.769 Left ICA/CCA Ratio ICA/CCA PSV0.445 Left ICA Mid ICA Mid PSV 47.4 cm/Belen Mid EDV 14 cm/s Left ICA Dist ICA Dist PSV48.1 cm/Belen Dist EDV12.5 cm/s Right ECA Prox ECA Prox PSV 106 cm/sECA Prox EDV 9 cm/s Left ECA Prox ECA Prox PSV65.5 cm/sECA Prox EDV 0 cm/s Signed 06/17/2017 08:35 AM Leann Darling MD, RPVI Procedure Note Interface, Radiology Results In - 06/17/2017 8:35 AM [facility] Vascular Ultrasound Laboratory Carotid Artery Duplex Report [address] [place] [address] For quality coordinator purposes, the categorization of the degree of the stenosis of this exam is based on criteria described in the IAC carotid stenosis grading white paper( www.intersocietal.org/Vascular) and Mo Neely., Dimas, CHerlindaB., et al. Carotid artery stenosis: back-scale and Doppler US diagnosis--Society of Radiologists in Ultrasound Consensus Conference. Radiology. 2003 May; 229(2):340-6. Pat.Name: CHERRY VENEGAS Pat.ID: [id number] .Date: 06/16/2017 Refer.MD: AJIT MCCLENDON MD Exam Time: 4:39:00 PM Study Type:Carotid Age: 3 1940,76Y Sex: MALE Sonogrphr: Campbell Vi, RVT Pat. Stat.:Inpatient Room: [address] Tape Vol: , CPT - 4: 79345 Echo Event ID:[id number] Order ID: [id number] Reason for Study:Patient had history of hypertension, hip fracture, COPD, DVT, PVD, sepsis. Race: C SUMMARY: PHYSICAL ASSESSMENT Blood Pulses Carotid Pressure Carotid Temporal Bruit Right IV + + 0 Left 149/87 + + 0 CAROTID ARTERY SCAN RIGHT: There is hard and calcified plaque seen in the common carotid artery, bulb area, extending into proximal internal and external carotid artery. Colorfow and Doppler signals are diminished in the internal carotid artery . The vertebral artery is not seen. LEFT: There is hard and calcified plaque seen in the common carotid artery, bulb area, extending into proximal internal and external carotid artery. Colorfow and Doppler signals are diminished in the internal carotid artery. There is antegrade flow seen in the vertebral artery. PRELIMINARY FINDINGS 1. Non-stenotic hard and calcified plaque seen in the common carotid artery, bilaterally. 2. <50% stenosis seen in the internal carotid artery, bilaterally. 3. Diminished flow seen in the internal carotid artery, bilaterally. 4. The right vertebral artery is not seen. 5. Antegrade flow seen in the left vertebral artery. 6. Technically difficult study due to patient breathing and body habitus. PHYSICIAN INTERPRETATION 1. Non-stenotic hard and calcified plaque seen in the common carotid artery, bilaterally. 2. <50% stenosis seen in the internal carotid artery, bilaterally. 3. Diminished flow seen in the internal carotid artery, bilaterally. 4. The right vertebral artery is not seen. 5. Antegrade flow seen in the left vertebral artery. Carotid Findings: Right Left Verteb.Flw Not Visualized Antegrade Subclavian Biphasic Biphasic MEASUREMENTS: DOPPLER Right CCA Dist CCA Dist PSV 74.7 cm/s CCA Dist EDV 11.9 cm/s Right CCA Mid CCA Mid PSV 45.9 cm/s CCA Mid EDV 8.83 cm/s Right CCA Prox CCA Prox PSV 59.2 cm/s CCA Prox EDV 10.4 cm/s Right ECA ECA PSV 106 cm/s ECA EDV 9.05 cm/s Right ICA Dist ICA Dist PSV 40.9 cm/s ICA Dist EDV 10.7 cm/s Right ICA Mid ICA Mid PSV 31.6 cm/s ICA Mid EDV 0 cm/s Right ICA Prox ICA Prox PSV 35.3 cm/s ICA Prox EDV 6.83 cm/s Left CCA Dist CCA Dist PSV 78.4 cm/s CCA Dist EDV 12.4 cm/s Left CCA Mid CCA Mid PSV 66.1 cm/s CCA Mid EDV 7.84 cm/s Left CCA Prox CCA Prox PSV 95.8 cm/s CCA Prox EDV 15 cm/s Left ECA ECA PSV 65.5 cm/s ECA EDV 0 cm/s Left ICA Prox ICA Prox PSV 29.4 cm/s ICA Prox EDV 9.1 cm/s Left Vertebral Vertebral PSV 39.6 cm/s Vertebral EDV 16.8 cm/s Right ICA/CCA Ratio ICA/CCA PSV 0.769 Left ICA/CCA Ratio ICA/CCA PSV 0.445 Left ICA Mid ICA Mid PSV 47.4 cm/s ICA Mid EDV 14 cm/s Left ICA Dist ICA Dist PSV 48.1 cm/s ICA Dist EDV 12.5 cm/s Right ECA Prox ECA Prox PSV 106 cm/s ECA Prox EDV 9 cm/s Left ECA Prox ECA Prox PSV 65.5 cm/s ECA Prox EDV 0 cm/s Signed 06/17/2017 08:35 AM Leann Darling MD, RPVI Performing Organization Address City/State/Zipcode Phone Number [facility] [address] [place] [address] CV stress test (06/16/2017 3:18 PM) Resting HR 72 [facility] MUSE Peak MET Achieved 1.0 [facility] MUSE Protocol Name REGADENO [facility] MUSE Time in Exercise Phase 00:01:00 [facility] MUSE Max Systolic BP 140 [facility] MUSE Max Diastolic BP 65 [facility] MUSE Max Heart Rate 74 [facility] MUSE Max Predicted Heart Rate 142 [facility] MUSE Target HR Formula (220 - Age)*100% [facility] MUSE Test Indication Screening for CAD [facility] MUSE Stress Test Impression -Waveform interpreted in report [facility] MUSE associated with image study. No interpretation is provided as part of this Stress ECG report.-Electronically Signed By Rodney SOLER, Daljit Saez ([id number]), newspaper copy editor Megan Brown ([id number]) on 06/16/2017 2:52:12 PM Target HR 120.70 bpm [facility] MUSE Performing Organization Address City/State/Zipcode Phone Number [facility] MUSE [address] [place] [address] Nm myocardial perfusion (06/16/2017 3:18 PM) Narrative Performed At [facility] Nuclear Cardiology and Cardiac CT [address] [place] [address] Myocardial Perfusion Imaging Report Stress ECG tracings are available in MUSE, [employer] and [employer] All ECG interpretations are included in this report Pat.Name:Ellen VENEGAS.ID:[id number] .Date: 06/16/2017Refer.MD:AC CHING MD Exam Time: 10:52:00 AM Study Type:Myocardial Perfusion Imaging Height:64inWeight: 179.8lb BSA: 1.87 m2 DOBAge:1940,76Y Sex: MALEBP:133/64 HR:71 bpmHCT: 38.2 % Nuclear Tech:ANA SalazarT, [employer]CH[employer] Pat. Stat.:Inpatient Room:D 4 Nuclear Event ID:[id number] Order ID:[id number] Reason for Study:CAD evaluation History / Clinical:COPD, Coronary artery disease, Hyperlipidemia, Hypertension, Obesity, Peripheral vascular disease, Renal insufficiency/failure, Groin aneurysm, Cholecystectomy, Stroke Procedures:Single Day Stress / Rest Race: Risk Factors:Hyperlipidemia, Hypertension, Peripheral arterial disease, Obesity, Cardiovascular Disease, TIA/Stroke Clinical Symptoms:Regadenoson Physical Exam:S1, S2 Surgery: K+ - 4.8 - 06/16/17, Bun/Cr - 29/1.3 - 06/16/17 Medications:Aspirin, Lasix, Lopressor, Lovenox, Plavix, Procardia, MicroK, Spiriva SUMMARY: SCINTIGRAPHIC RESULTS Perfusion Defect Size (% LV) 0 % Total 0 % Ischemia 0 % Scar Left Ventricular Perfusion Results There is normal tracer distribution during stress and rest. Gated SPECT Results The post-stress left ventricular ejection fraction is 63 % with normal regional wall motion and left ventricular thickening.Left ventricular end-diastolic volume is 115 ml; end-systolic volume is42 ml. The left ventricle is of normal size at stress and at rest.The right ventricle is of normal size with normal wall motion. Conclusion Normal regadenoson Tc-99m tetrofosmin myocardial perfusion study. The left ventricular ejection fraction is normal. Comments Patients with a normal stress myocardial perfusion study have a low (< 1%) annual risk of cardiac or nonfatal myocardial infarction. Study Quality/Artifacts The study quality is good. The mild reduction in mid and basal inferior wall counts during stress is probably due to diaphragmatic and other soft tissue attenuation artifacts rather than coronary artery disease. Comparison to Previous Study None available. STRESS: Baseline Vital Signs:Intervention: Regadenoson 0.4mg/5ml IV over 10 seconds followed by radiotracer injection and 5ml saline flush ECG: Ventricular pacemaker, Right [place] Deviation, Wide QRS HR:71 BP:133/64 Stress Test Results: Target HR: 121 Symptoms and Complications: Arrhythmias: None Terminated: As per Regadenoson protocol Symptoms:Shortness of breath Complications: None Conclusions: Normal heart rate response to pharmacological stress, Normal blood pressure response to pharmacological stress Stress ECG Interp: No ischemic ST segment change occurred with stress. Signed 06/16/2017 05:59 PM Daljit Stevens MD Procedure Note Interface, Radiology Results In - 06/16/2017 5:59 PM [facility] Nuclear Cardiology and Cardiac CT [address] [place] [address] Myocardial Perfusion Imaging Report Stress ECG tracings are available in [employer], [employer] and [employer] All ECG interpretations are included in this report Pat.Name: NEWCHERRY Sim Pat.ID: [id number] .Date: 06/16/2017 Refer.MD: AC CHING MD Exam Time: 10:52:00 AM Study Type:Myocardial Perfusion Imaging Height: 64in Weight: 179.8lb BSA: 1.87 m2 Age: 3 1940,76Y Sex: MALE BP: 133/64 HR: 71 bpm HCT: 38.2 % Nuclear Tech:ANA SalazarT, [facility] Pat. Stat.:Inpatient Room: [facility] Nuclear Event ID:[id number] Order ID: [id number] Reason for Study:CAD evaluation History / Clinical:COPD, Coronary artery disease, Hyperlipidemia, Hypertension, Obesity, Peripheral vascular disease, Renal insufficiency/failure, Groin aneurysm, Cholecystectomy, Stroke Procedures:Single Day Stress / Rest Race: Risk Factors:Hyperlipidemia, Hypertension, Peripheral arterial disease, Obesity, Cardiovascular Disease, TIA/Stroke Clinical Symptoms:Regadenoson Physical Exam:S1, S2 Surgery: K+ - 4.8 - 06/16/17, Bun/Cr - 29/1.3 - 06/16/17 Medications:Aspirin, Lasix, Lopressor, Lovenox, Plavix, Procardia, MicroK, Spiriva SUMMARY: SCINTIGRAPHIC RESULTS Perfusion Defect Size (% LV) 0 % Total 0 % Ischemia 0 % Scar Left Ventricular Perfusion Results There is normal tracer distribution during stress and rest. Gated SPECT Results The post-stress left ventricular ejection fraction is 63 % with normal regional wall motion and left ventricular thickening. Left ventricular end-diastolic volume is 115 ml; end-systolic volume is 42 ml. The left ventricle is of normal size at stress and at rest. The right ventricle is of normal size with normal wall motion. Conclusion Normal regadenoson Tc-99m tetrofosmin myocardial perfusion study. The left ventricular ejection fraction is normal. Comments Patients with a normal stress myocardial perfusion study have a low (< 1%) annual risk of cardiac or nonfatal myocardial infarction. Study Quality/Artifacts The study quality is good. The mild reduction in mid and basal inferior wall counts during stress is probably due to diaphragmatic and other soft tissue attenuation artifacts rather than coronary artery disease. Comparison to Previous Study None available. STRESS: Baseline Vital Signs: Intervention: Regadenoson 0.4mg/5ml IV over 10 seconds followed by radiotracer injection and 5ml saline flush ECG: Ventricular pacemaker, Right [place] Deviation, Wide QRS HR: 71 BP: 133/64 Stress Test Results: Target HR: 121 Symptoms and Complications: Arrhythmias: None Terminated: As per Regadenoson protocol Symptoms: Shortness of breath Complications: None Conclusions: Normal heart rate response to pharmacological stress, Normal blood pressure response to pharmacological stress Stress ECG Interp: No ischemic ST segment change occurred with stress. Signed 06/16/2017 05:59 PM Daljit Stevens MD Performing Organization Address [facility] Phone Number [employer] [address] [place] [address] XR Femur 2 Vw Left (06/16/2017 3:04 PM) Narrative Performed At EXAMINATION:XR FEMUR 2 VW LEFT [facility] CLINICAL HISTORY: FRACTURETHIGH COMPARISON:None. FINDINGS: Examination is limited due to difficulties in patient positioning. There is a subcapital fracture of the proximal femur. As visualized, the fracture does not extend into the femoral head or intertrochanteric region. IMPRESSION: As above [facility]-[id number] Procedure Note Interface, Radiology Results Incoming - 06/16/2017 4:07 PM DIAGNOSTIC TECHNOLOGIST EXAMINATION: XR FEMUR 2 VW LEFT CLINICAL HISTORY: FRACTURE THIGH COMPARISON: None. FINDINGS: Examination is limited due to difficulties in patient positioning. There is a subcapital fracture of the proximal femur. As visualized, the fracture does not extend into the femoral head or intertrochanteric region. IMPRESSION: As above [facility]-[id number] Performing Organization Address [facility] Phone Number [employer] [address] [place] [address] Echocardiogram complete w contrast and 3D if needed (06/16/2017 10:22 AM) Narrative Performed At [facility] Echocardiography Report [address] [facility], [place] [address] Pat.Name:Ellen VENEGAS.ID:[id number] .Date: 06/16/2017Refer.MD:AJIT MCCLENDON MD Exam Time: 9:38:00 AMStudy Type:Routine Echo Height:65inWeight: 178.99lb BSA: 1.89 m2 DOBAge:1940,76Y Sex: MALEBP:156/74 HR:71 bpmSonogrphr: Ashanti Goldman [facility] Pat. Stat.:Inpatient Room:[facility] Study Status:Final Echo Event ID:[id number] Order ID:[id number] Reason for Study:Ischemic event/[place] without chest pain History / Clinical:COPD, Coronary Artery Disease, Edema, Hyperlipidemia, Hypertension, Stroke Procedures:2D Echo, Colorflow Doppler Race:C SUMMARY: LV EF is normal. RV systolic function is mildly depressed. LA volume is moderately enlarged. Moderate to severe tricuspid regurgitation Diastolic dysfunction Grade II (Moderate): Impaired relaxation with elevated LV filling pressures. Estimated PA systolic pressure is 45-50 mmHg, assuming a mean RAP of 20-25 mmHg. FINDINGS: LV: LV size is normal. There is moderate concentric LV hypertrophy.LV EF is normal. Overall wall motion is normal.Estimated EF is 55-59%. RV: RV size is enlarged. A pacemaker wire is seen in the RV. RV systolicfunction is mildly depressed. LA: LA volume is moderately enlarged. RA: RA volume is enlarged. A pacemaker wire is seen. AO: Aortic root diameter is normal. CINDY: No pericardial effusion. SVn:Inferior vena cava is dilated. Minimal collapse of IVC duringinspiration is consistent with elevated RA pressure. AV: Moderate calcification of AV leaflets. MV: Mild mitral annular calcification. PV: Pulmonic valve not well seen. A trace of pulmonic regurgitation. TV: No structural TV abnormalities noted. Moderate to severe tricuspidregurgitation Sanches: Diastolic dysfunction Grade II (Moderate): Impaired relaxationwith elevated LV filling pressures. Other:Estimated PA systolic pressure is 45-50 mmHg, assuming a meanRAP of 20-25 mmHg. MEASUREMENTS: 2D Parasternal [place] LVOT 2 cmLA Ds4.7 cm LVIDd4.8 cmIndex2.6 cm/m Ao An2.4 cm LVIDs3.6 cmAo Rtd 3.6 cm Index1.9 cm/m LV%fs 25 % LV Qnac151 g(122-174) IVSd 1.4 cmLVM Ycwci599.5 g/m2 LVPWd1.4 cmRWT0.6 LA Biplane LA 4Ch Area 28.9 cm2 LA Vol82.7 ml Index43.7 ml/m LA 2Ch Area 25.7 cm2 DOPPLER LVOT Stroke Vol LVOT 2 cmLVOT CO2.8 l/min LVOT TVI12.6 cmLVOT CI1.5 l/m/m2 LVOT Tm287 erqyKF87 bpm LVOT SV 39.4 ml TV Pressure Gradient TV PkVel 274.5 cm/sTV PG 30.1 mmHg Signed 06/16/2017 02:46 PM Jatinder Palacio M.D. Procedure Note Interface, Radiology Results In - 06/16/2017 2:46 PM [facility] Echocardiography Report [id number] [address] [facility].Name: CHERRY VENEGAS.ID: [id number] .Date: 06/16/2017 Refer.MD: AJIT MCCLENDON MD Exam Time: 9:38:00 AM Study Type:Routine Echo Height: 65in Weight: 178.99lb BSA: 1.89 m2 Age: 5 1940,76Y Sex: MALE BP: 156/74 HR: 71 bpm Sonogrphr: Ashanti Goldman RDCS Pat. Stat.:Inpatient Room: D774 Study Status:Final Echo Event ID:[id number] Order ID: [id number] Reason for Study:Ischemic event/[place] without chest pain History / Clinical:COPD, Coronary Artery Disease, Edema, Hyperlipidemia, Hypertension, Stroke Procedures:2D Echo, Colorflow Doppler Race: C SUMMARY: LV EF is normal. RV systolic function is mildly depressed. LA volume is moderately enlarged. Moderate to severe tricuspid regurgitation Diastolic dysfunction Grade II (Moderate): Impaired relaxation with elevated LV filling pressures. Estimated PA systolic pressure is 45-50 mmHg, assuming a mean RAP of 20-25 mmHg. FINDINGS: LV: LV size is normal. There is moderate concentric LV hypertrophy. LV EF is normal. Overall wall motion is normal. Estimated EF is 55-59%. RV: RV size is enlarged. A pacemaker wire is seen in the RV. RV systolic function is mildly depressed. LA: LA volume is moderately enlarged. RA: RA volume is enlarged. A pacemaker wire is seen. AO: Aortic root diameter is normal. CINDY: No pericardial effusion. SVn: Inferior vena cava is dilated. Minimal collapse of IVC during inspiration is consistent with elevated RA pressure. AV: Moderate calcification of AV leaflets. MV: Mild mitral annular calcification. PV: Pulmonic valve not well seen. A trace of pulmonic regurgitation. TV: No structural TV abnormalities noted. Moderate to severe tricuspid regurgitation Sanches: Diastolic dysfunction Grade II (Moderate): Impaired relaxation with elevated LV filling pressures. Other: Estimated PA systolic pressure is 45-50 mmHg, assuming a mean RAP of 20-25 mmHg. MEASUREMENTS: 2D Parasternal [place] LVOT 2 cm LA Ds 4.7 cm LVIDd 4.8 cm Index 2.6 cm/m Ao An 2.4 cm LVIDs 3.6 cm Ao Rtd 3.6 cm Index 1.9 cm/m LV%fs 25 % LV Mass 273 g (122-174) IVSd 1.4 cm LVM Index 144.5 g/m2 LVPWd 1.4 cm RWT 0.6 LA Biplane LA 4Ch Area 28.9 cm2 LA Vol 82.7 ml Index 43.7 ml/m LA 2Ch Area 25.7 cm2 DOPPLER LVOT Stroke Vol LVOT 2 cm LVOT CO 2.8 l/min LVOT TVI 12.6 cm LVOT CI 1.5 l/m/m2 LVOT Tm 287 msec HR 72 bpm LVOT SV 39.4 ml TV Pressure Gradient TV PkVel 274.5 cm/s TV PG 30.1 mmHg Signed 06/16/2017 02:46 PM Jatinder Palacio M.D. Performing Organization Address City/State[facility] Phone Number [facility] [id number] [place] [address] after 05/12/2017 Insurance Payer Benefit Plan / Group Subscriber ID Type Phone Address [employer] MED[employer]ARE HU[employer] MEDICARE PPO/PFFS/ERS [facility] xxxxxxxxx PPO Home: Dashawn LIN [phone] [place] [id number] [employer] 1940 Home: Anel DELIA [facility] [phone] [place] [address] [place] [address] [facility] Outside Facilities Other Home: Attn: [facility] [phone] [place] [address] [place] [address]
[2018-05-13 14:57] LABS: Absolute Lymphocytes (CBC) 0.6 K/uL (0.7-4.9); Absolute Monocytes 0.7 K/uL (0.1-1.3); Absolute Neutrophil 3.9 K/uL (1.8-8.0); Basophils % 0.6 % (0-1.3); Eosinophils % 0.8 % (0-4.4); Hematocrit 38.5 % (39.6-49.0); MCH 32.8 pg (27.0-35.0); MCV 100.1 fL (80-100); Monocytes % 12.8 % (3.3-12.3); RBC Red Blood Cell Count 3.85 M/uL (4.33-5.43)
[2018-05-13 15:15] LABS: Albumin 3.5 g/dL (3.4-5.0); Bilirubin Total 0.8 mg/dL (0.2-1.0); Magnesium 2.6 mg/dL (1.8-2.4); Potassium 4.6 mmol/L (3.5-5.1); Protein, Total 6.8 g/dL (6.4-8.2)
[2018-05-13 15:16] LABS: Thyroid Stimulating Hormone 6.33 uIU/mL (0.360-3.740)
--- NOTE | 2018-05-13 15:23 | RAD REPORT ---
EXAM DESCRIPTION: Chari Pa And Lat (2 Views)05/13/2018 3:11 pm CLINICAL HISTORY: Shortness of breath COMPARISON: 2012 FINDINGS: Small pleural effusions are present. Mild bilateral pulmonary opacities are seen. Heart is mildly enlarged. Pacemaker leads are in place IMPRESSION: Mild CHF
[2018-05-13] MEDS: FUROSEMIDE 40 MG/4 ML VIAL IV SCH (18:19)
[2018-05-13] MEDS ORDERED: NITROGLYCERIN 0.4 MG/TAB SL SCH (21:00)
[2018-05-13] MEDS ORDERED: NITROGLYCERIN 0.4 MG/TAB SL PRN (21:07)
[2018-05-13] MEDS: METOPROLOL TAR 25 MG TAB PO SCH (21:37)
--- NOTE | 2018-05-14 04:55 | HP ---
Date of Admission: 05/13/2018 Chief Complaint: Fluid retention. History Of Present Illness: This 77-year-old male patient, who is on continuous home oxygen, has chr onic diastolic congestive heart failure, takes his medications regularly, came into office today with increasing swelling and increased lethargy. The patient's was with him today at the office and reported that his swelling all over his body is increasingly getting worse lately, and he is getting more and more tired, and more and more lethargic throughout the day. He continues to sleep. After the patient was evaluated at the office, decision was made to admit him to the hospital for acute exa cerbation of his CHF problem. Denies any fall injury. No fever, chills, nausea, vomiting, diarrhea, or any bleeding problems. Medications: Anoro Ellipta inhaler 1 puff daily, aspirin 81 mg daily, Bactrim single-strength 1 tabl et 2 times a day, clopidogrel 75 mg p.o. daily, furosemide 40 mg takes 2 tablets 2 times a day, Atrov ent nebulizer treatment 4 times a day as needed, levothyroxine 100 mcg daily, metolazone 2.5 mg once a week, metoprolol 25 mg takes half a tablet 2 times a day, nifedipine 30 mg p.o. daily, Nitrostat p. r.n., potassium chloride 20 mEq 1 tablet p.o. daily, tamsulosin 0.4 mg p.o. daily. Allergies: NO KNOWN ALLERGIES. Review of Systems: Cardiovascular: As mentioned above. All other systems reviewed and negative. Past Medical History: Significant for hypothyroidism, anemia, chronic kidney disease stage 3, chroni c diastolic congestive heart failure, COPD, hyperlipidemia, atrial fibrillation, allergic rhinitis, h ypertension. Past Surgical History: Significant for bilateral carotid artery stent placement, surgery for left hi p fracture, right iliac artery aneurysm surgery, and pacemaker placement. Family History: Significant for cerebral aneurysm, myocardial infarction, diabetes mellitus. Social History: Prior history of smoking, not at present time. Use of alcohol, negative. Physical Examination: Vital Signs: Temperature 97.9, pulse 75, respiratory rate 20, blood pressure 126/65, oxygen saturati on 91%. Last oxygen saturation 87% on 3 L nasal cannula. Height 5 feet 4 inches, weight 182 pounds. General: Patient appears weaker than normal, sleepier than normal, not in any distress. HEENT: Head atraumatic, normocephalic. Conjunctivae nonerythematous. Sclerae white. Mouth, no thr ush or edema noted. Ears/Nose, no mass, lesion, discharge noted. Neck: Supple. No JVD, lymph nodes, bruit, thyromegaly noted. Lungs: Bilateral good equal air entry. Presence of rales noted in the lower half of both lung field s. Heart: Normal heart sounds, no murmur or gallop. Abdomen: Soft, bowel sounds normal. No guarding, rigidity, tenderness, or distention. The patient has significant edema of anterior and posterior abdominal wall. Extremities: The patient has edema of both extremities, grade 3 to grade 4 pedal edema. Skin: No rash, ulcer, cellulitis. Lymphatics: No lymph node enlargement in neck, supraclavicular, infraclavicular region. Neuro: No focal neurological deficit. Chest: Unremarkable. External Genitalia: Deferred. Rectal: Deferred. Laboratory Data: White count 5.3, hemoglobin 12.6, platelets 203. Sodium 138, potassium 4.6, chlori de 97, bicarb 35, BUN 30, creatinine 1.50, glucose 104, magnesium 2.6. Liver function tests unremark able. TSH 6.33. Chest x-ray shows changes of CHF. Echocardiogram pending. Impression: 1.Congestive heart failure, chronic, diastolic, with acute exacerbation. 2.Chronic atrial fibrillation. 3.Hypertension. 4.Hyperlipidemia. 5.Chronic obstructive pulmonary disease. 6.Chronic kidney disease, stage 3. 7.Hypothyroidism. Plan: Admit the patient to hospital for further evaluation and management of this problem. Patient is appropriate for inpatient and is expected to spend 2 midnights in hospital. We will go ahead and continue home medications per order. We will follow up on echocardiogram results, which was ordered to be done today. We will monitor intake and output, daily weight. Start IV Lasix per order. Monit or electrolytes and renal function. Consult Physical Therapy to help ambulate the patient, and I stanley l see him tomorrow for followup. Details of plan of treatment discussed with the patient and the drew stoddard's at the office. REYNA/MODL Voice ID: [id number]
[2018-05-14] MEDS: LEVOTHYROXINE SOD 0.1 MG TAB PO SCH (05:34)
[2018-05-14 06:36] LABS: Magnesium 2.6 mg/dL (1.8-2.4)
--- NOTE | 2018-05-14 07:57 | ECHO ---
HEIGHT: 5 ft 4 in WEIGHT: 182 lb 0 oz DATE OF STUDY: 05/13/[address]: Samson Rose MD 2-DIMENSIONAL: YES M.MODE: YES DOPPLER: YES COLOR FLOW: YES TDS: PORTABLE: DEFINITY: BUBBLE STUDY: DIAGNOSIS: CONGESTIVE HEART FAILURE CARDIAC HISTORY: CATHERIZATION: YES SURGERY: NO PROSTHETIC VALVE: NO PACEMAKER: YES MEASUREMENTS (cm) DIASTOLIC (NORMALS) SYSTOLIC (NORMALS) IVSd 0.9 (0.6-1.2) LA Diam 5.6 (1.9-4.0) LVEF 35% LVIDd 4.8 (3.5-5.7) LVIDs 4.0 (2.0-3.5) %FS 17% LVPWd 1.1 (0.6-1.2) Ao Diam 3.4 (2.0-3.7) 2 DIMENSIONAL ASSESSMENT: RIGHT ATRIUM: DILATED LEFT ATRIUM: DILATED RIGHT VENTRICLE: DILATED LEFT VENTRICLE: NORMAL SIZE TRICUSPID VALVE: NORMAL MITRAL VALVE: MITRAL ANNULAR CALCIFICATION PULMONIC VALVE: NORMAL AORTIC VALVE: SCLEROSIS PERICARDIAL EFFUSION: NONE AORTIC ROOT: NORMAL LEFT VENTRICULAR WALL MOTION: SEVERE GLOBAL HYPOKINESIS DOPPLER/COLOR FLOW: MILD TRICUSPID AND MITRAL REGURGITATION COMMENTS: MILD TRICUSPID REGURGITATION. RIGHT VENTRICULAR SYSTOLIC PRESSURE 36 mmHg. MILD MITRAL REGURGITATION. RIGHT VENTRICULAR ENLARGEMENT. RIGHT ATRIAL ENLARGEMENT. LEFT ATRIAL ENLARGEMENT. EJECTION FRACTION 30-35%. SEVERE GLOBAL HYPOKINESIS. PACER IN RIGHT VENTRICULAR APEX. TECHNOLOGIST: VIOLETA BELTRAN
[2018-05-14] MEDS ORDERED: SMZ./TMP. 800/160 MG TABLET PO SCH ×2 (08:00→20:00)
[2018-05-14] MEDS: ENOXAPARIN 30 MG/0.3 ML SQ SCH (08:42)
[2018-05-14] MEDS: METOPROLOL TAR 25 MG TAB PO SCH ×2 (08:42→20:15)
[2018-05-14] MEDS: FUROSEMIDE 40 MG/4 ML VIAL IV SCH ×2 (08:42→17:18)
[2018-05-14] MEDS: TAMSULOSIN 0.4 MG SR CAP PO SCH (08:43)
[2018-05-14] MEDS: DOCUSATE NA 100 MG CAP PO SCH (08:43)
[2018-05-14] MEDS: CLOPIDOGREL 75 MG TABLET PO SCH (08:43)
[2018-05-14] MEDS: ASPIRIN EC 81 MG TAB PO SCH (08:43)
[2018-05-14 11:46] LABS: Urine Appearance CLEAR; Urine Bilirubin NEGATIVE (NEG); Urine Blood NEGATIVE (NEG); Urine Color YELLOW; Urine Glucose NEGATIVE (NEG); Urine Protein TRACE (NEG); Urine Specific Gravity 1.015 (1.005-1.030); Urine Urobilinogen 0.2 mg/dL (0.2-1.0)
[2018-05-14 12:38] LABS: Calcium Oxalate Crystals- Ur FEW (NONE SEEN); Urine Bacteria NONE SEEN /HPF (NONE SEEN); Urine Culture Reflex Order NOT NEEDED; Urine RBC NONE SEEN /HPF (NONE SEEN)
[2018-05-14] MEDS: IPRATROPIUM BROM 0.5MG/2.5ML NEB SCH (19:35)
--- NOTE | 2018-05-14 20:13 | PN ---
Date of Progress Note: 05/14/2018 Subjective: The patient was seen this morning for followup. He was sleeping, arousable, not in dist ress. Denied any complaints overnight. Objective: Vital signs: Reviewed. HEENT: Unremarkable. Lungs: Clear to auscultation except rales noted in lower lung meraz. Not using accessory muscles o f respiration. Heart: Sounds normal. Abdomen: Soft. Bowel sounds normal. No guarding, rigidity, tenderness, or distention. Extremities: Bilateral leg edema, slightly better today than yesterday. Laboratory Data: Sodium 139, potassium 4, chloride 97, bicarb 38, BUN 31, creatinine 1.50, glucose 9 4. Echocardiogram shows ejection fraction 30-35%. Impression: 1.Congestive heart failure, chronic, systolic, with acute exacerbation. 2.Chronic kidney disease, stage 3. 3.Anemia. 4.Chronic obstructive pulmonary disease. Plan: We will go ahead and continue current Lasix. Monitor intake, output and daily weight. Contin ue metoprolol. We will continue his inhaler nebulizer treatment for COPD per order. Considering drew stoddard's ejection fraction is low, we will go ahead and start him on Entresto. So far, the patient had echocardiogram done in [place] with his manufacturing technician and my understanding was that he had diastolic dysfunction as per my discussion with the patient's , but now it appears that the patient has sys tolic dysfunction. We will make adjustment in medication as mentioned above. I will see him tomorrow for followup. Ambulation was e ncouraged. REYNA/MODL Voice ID: [id number] Report ID: [id number]
[2018-05-14] MEDS: SACUBITRIL/VALSARTAN 24/26 MG TAB PO SCH (20:14)
[2018-05-14] MEDS: SULFAMETHOXAZOLE PO SCH (20:16)
[2018-05-14] MEDS: TRIMETHOPRIM PO SCH (20:16)
[2018-05-15] MEDS: ACETAMINOPHEN 500 MG TAB PO PRN ×2 (00:06→20:02)
[2018-05-15] MEDS: LEVOTHYROXINE SOD 0.1 MG TAB PO SCH (06:10)
[2018-05-15 06:21] LABS: Magnesium 2.2 mg/dL (1.8-2.4); Potassium 3.7 mmol/L (3.5-5.1)
[2018-05-15 06:31] LABS: Absolute Lymphocytes (CBC) 0.8 K/uL (0.7-4.9); Absolute Monocytes 0.9 K/uL (0.1-1.3); Absolute Neutrophil 3.7 K/uL (1.8-8.0); Basophils % 0.8 % (0-1.3); Eosinophils % 1.5 % (0-4.4); Hematocrit 38.6 % (39.6-49.0); Lymphocytes % 13.9 % (15.3-44.8); MCH 33.4 pg (27.0-35.0); MCV 99.5 fL (80-100); MPV 8.1 fL (7.6-11.3); Monocytes % 15.7 % (3.3-12.3); RBC Red Blood Cell Count 3.88 M/uL (4.33-5.43)
[2018-05-15] MEDS ORDERED: POTASSIUM 25 MEQ EFFERV TAB PO ONE (06:35)
[2018-05-15] MEDS: IPRATROPIUM BROM 0.5MG/2.5ML NEB SCH ×3 (07:45→20:00)
[2018-05-15] MEDS: TRIMETHOPRIM PO SCH ×2 (08:54→20:03)
[2018-05-15] MEDS: SULFAMETHOXAZOLE PO SCH ×2 (08:54→20:03)
[2018-05-15] MEDS: TAMSULOSIN 0.4 MG SR CAP PO SCH (08:55)
[2018-05-15] MEDS: CLOPIDOGREL 75 MG TABLET PO SCH (08:55)
[2018-05-15] MEDS: SACUBITRIL/VALSARTAN 24/26 MG TAB PO SCH ×2 (08:55→20:01)
[2018-05-15] MEDS: ASPIRIN EC 81 MG TAB PO SCH (08:55)
[2018-05-15] MEDS: DOCUSATE NA 100 MG CAP PO SCH (08:55)
[2018-05-15] MEDS: METOPROLOL TAR 25 MG TAB PO SCH ×2 (08:56→20:02)
[2018-05-15] MEDS: FUROSEMIDE 40 MG/4 ML VIAL IV SCH ×3 (08:56→16:42)
[2018-05-15] MEDS: ENOXAPARIN 30 MG/0.3 ML SQ SCH (08:57)
[2018-05-15] MEDS: Fluticasone/Vilanterol [Breo Ellipta 100-25 Mcg Inh] IH SCH (08:58)
[2018-05-15] MEDS: Tiotropium Bromide [Spiriva Respimat] IH SCH (08:58)
--- NOTE | 2018-05-15 11:22 | RAD REPORT ---
EXAM DESCRIPTION: Chari Alva And Brad (2 Views)05/15/2018 11:12 am CLINICAL HISTORY: sob COMPARISON: 05/13/2018 FINDINGS: No significant change has occurred in small bilateral pleural effusions, mild bilateral i nterstitial pulmonary edema and mild cardiomegaly. Pacemaker leads are in place IMPRESSION: No change in mild CHF
--- NOTE | 2018-05-15 13:38 | PN ---
Date of Progress Note: 05/15/2018 Subjective: The patient was seen this morning for followup. He denies any complaints. Lying in bed , not in distress. Reports that yesterday he did ambulate with physical therapy. Denies any chest p ain or any PND or orthopnea. Objective: Vital Signs: Reviewed. Intake and output records reviewed. HEENT: Unremarkable. Lungs: Clear to auscultation except some rales noted in lower lung meraz, overall better than befor e. Not using accessory muscles of respiration. Heart: Sounds normal. Abdomen: Soft, bowel sounds normal. No guarding, rigidity, tenderness, or distention. Extremity: Leg edema present. The patient still has significant leg edema, which is slightly better compared to the time of admission, but still has significant leg edema as well as edema of the anter ior and posterior abdominal wall. Laboratory Data: White count 5.4, hemoglobin 13, platelets 219. Sodium 137, potassium 3.7, chloride 99, bicarb 31, BUN 30, creatinine 1.30, glucose 90, magnesium 2.2. Echocardiogram from yesterday sh ows ejection fraction around 30-35%. Impression: 1.Congestive heart failure, chronic, systolic, with acute exacerbation. 2.Chronic obstructive pulmonary disease. 3.Chronic kidney disease, stage 3. Plan: We will go ahead and continue current medications, which is oxygen nebulizer treatment. DVT p rophylaxis using Lovenox. Continue his inhaler and nebulizer treatment. We will increase dose of La six, and Entresto was started yesterday. We will continue that, and we will continue metoprolol and also start him on Zaroxolyn. We will repeat blood work tomorrow morning . REYNA/MODL Voice ID: [id number] Report ID: [id number]
[2018-05-15] MEDS: METOLAZONE 2.5 MG TABLET PO SCH (16:40)
[2018-05-16] MEDS: ACETAMINOPHEN 500 MG TAB PO PRN ×2 (01:42→22:27)
[2018-05-16] MEDS: FUROSEMIDE 40 MG/4 ML VIAL IV SCH ×3 (01:42→19:05)
[2018-05-16] MEDS: LEVOTHYROXINE SOD 0.1 MG TAB PO SCH (05:18)
[2018-05-16 06:54] LABS: Magnesium 2.3 mg/dL (1.8-2.4); Potassium 3.3 mmol/L (3.5-5.1)
[2018-05-16] MEDS: IPRATROPIUM BROM 0.5MG/2.5ML NEB SCH ×3 (07:39→20:00)
[2018-05-16] MEDS: TRIMETHOPRIM PO SCH ×2 (08:00→20:46)
[2018-05-16] MEDS: SULFAMETHOXAZOLE PO SCH ×2 (08:00→20:46)
[2018-05-16] MEDS: Tiotropium Bromide [Spiriva Respimat] IH SCH (08:50)
[2018-05-16] MEDS: TAMSULOSIN 0.4 MG SR CAP PO SCH (08:51)
[2018-05-16] MEDS: CLOPIDOGREL 75 MG TABLET PO SCH (08:51)
[2018-05-16] MEDS: DOCUSATE NA 100 MG CAP PO SCH (08:51)
[2018-05-16] MEDS: SACUBITRIL/VALSARTAN 24/26 MG TAB PO SCH ×2 (08:51→20:46)
[2018-05-16] MEDS: ENOXAPARIN 30 MG/0.3 ML SQ SCH (08:51)
[2018-05-16] MEDS: METOPROLOL TAR 25 MG TAB PO SCH ×2 (08:51→20:46)
[2018-05-16] MEDS: METOLAZONE 2.5 MG TABLET PO SCH (08:52)
[2018-05-16] MEDS: ASPIRIN EC 81 MG TAB PO SCH (08:52)
[2018-05-16] MEDS ORDERED: POTASSIUM 25 MEQ EFFERV TAB PO ONE (09:00)
[2018-05-16] MEDS ORDERED: POTASSIUM CL SA 10 MEQ TAB PO ONE (17:35)
--- NOTE | 2018-05-16 23:51 | PN ---
Date of Progress Note: 05/16/2018 Subjective: The patient was seen this morning for followup. No new complaints or problems reported by patient. Lying in bed, not in any distress. Denies any paroxysmal nocturnal dyspnea or orthopnea . Objective: Vital Signs: Reviewed. HEENT: Unremarkable. Lungs: Bilateral good equal air entry. Clear to auscultation. Heart: Heart sounds normal. Abdomen: Soft. Bowel sounds normal. No guarding, rigidity, tenderness, or distention. Extremities: Edema of both extremities grade 3 to grade 4 still present. Significant edema of abdom inal wall anteriorly and posteriorly remains present. Laboratory Data: Sodium 139, potassium 3.3, chloride 97, bicarb 39, BUN 30, creatinine 1.40, glucose 78, magnesium 2.3. Intake and output records and daily weight reviewed. Impression: 1.Congestive heart failure, chronic, systolic, with acute exacerbation. 2.Chronic kidney disease, stage 3. 3.Chronic obstructive pulmonary disease. 4.Hypokalemia. 5.Anemia. Plan: We will continue current oxygen nebulizer treatment for COPD. Replace electrolyte per protoco l. Anemia is stable. We will continue current IV Lasix and oral metolazone. I will see him tomorro w for followup. The patient still has significant amount of fluid retentions and it appears that it will take a few more days of IV diuretic therapy before we might be able to discharge him to go home. We will continue Lasix 40 mg IV every 8 hours. When I ask him further question, he is not drinking more than 30 ounces of liquid a day as he reports. REYNA/MODL Voice ID: [id number] Report ID: [id number]
[2018-05-17] MEDS: FUROSEMIDE 40 MG/4 ML VIAL IV SCH ×3 (00:15→18:07)
[2018-05-17 04:37] LABS: Potassium 3.6 mmol/L (3.5-5.1)
[2018-05-17] MEDS ORDERED: POTASSIUM CL SA 10 MEQ TAB PO ONE (05:02)
[2018-05-17] MEDS ORDERED: ONDANSETRON 4 MG/2 ML VIAL IV PRN (06:41)
[2018-05-17] MEDS: LEVOTHYROXINE SOD 0.025 MG TAB PO SCH (07:40)
[2018-05-17] MEDS: LEVOTHYROXINE SOD 0.1 MG TAB PO SCH (07:40)
[2018-05-17] MEDS: IPRATROPIUM BROM 0.5MG/2.5ML NEB SCH ×3 (07:47→20:42)
[2018-05-17] MEDS: Tiotropium Bromide [Spiriva Respimat] IH SCH (09:00)
[2018-05-17] MEDS: TAMSULOSIN 0.4 MG SR CAP PO SCH (09:38)
[2018-05-17] MEDS: SACUBITRIL/VALSARTAN 24/26 MG TAB PO SCH ×2 (09:38→20:44)
[2018-05-17] MEDS: ASPIRIN EC 81 MG TAB PO SCH (09:38)
[2018-05-17] MEDS: METOPROLOL TAR 25 MG TAB PO SCH ×2 (09:39→20:44)
[2018-05-17] MEDS: DOCUSATE NA 100 MG CAP PO SCH (09:39)
[2018-05-17] MEDS: METOLAZONE 2.5 MG TABLET PO SCH (09:39)
[2018-05-17] MEDS: CLOPIDOGREL 75 MG TABLET PO SCH (09:39)
[2018-05-17] MEDS: Fluticasone/Vilanterol [Breo Ellipta 100-25 Mcg Inh] IH SCH (09:40)
[2018-05-17] MEDS: ENOXAPARIN 30 MG/0.3 ML SQ SCH (09:40)
[2018-05-17] MEDS: SULFAMETHOXAZOLE PO SCH ×2 (09:48→20:43)
[2018-05-17] MEDS: TRIMETHOPRIM PO SCH ×2 (09:48→20:43)
--- NOTE | 2018-05-17 12:13 | PN ---
Date of Progress Note: 05/17/2018 Subjective: The patient was seen this morning for followup. No new complaints or problems reported by him except some nausea this morning. Objective: Vital Signs: Reviewed. HEENT: Examination unremarkable. Lungs: Clear to auscultation. No rhonchi. Not in a distress. Heart: Heart sounds normal. Abdomen: Soft. Bowel sounds normal. No guarding, rigidity, tenderness, or distention. Extremities: Edema of both lower extremity. Abdominal wall slightly better today than yesterday. Intake and output records reviewed. The patien t's weight was recorded as 183 pounds, but intake was recorded as 28, 58 and 60, and I will have to v erify that with the nursing staff. Laboratory Data: Sodium 138, potassium 3.6, chloride 95, bicarb 40, BUN 30, creatinine 1.40, glucose 83. Impression: 1.Congestive heart failure, chronic, systolic, with acute exacerbation. 2.Anemia. 3.Chronic kidney disease, stage 3. 4.Chronic obstructive pulmonary disease. 5.Hypothyroidism. Plan: We will go ahead and continue current medications. Plan as of today, we will give a little st ronger dose of levothyroxine considering TSH was slightly high upon admission at 6.3. We will continue current diuretic therapy, oxygen nebulizer treatment inhaler and DVT prophylaxis. I will se e him tomorrow for followup. REYNA/MODL Voice ID: [id number] Report ID: [id number]
[2018-05-17] MEDS: ACETAMINOPHEN 500 MG TAB PO PRN (20:44)
[2018-05-18] MEDS: FUROSEMIDE 40 MG/4 ML VIAL IV SCH ×3 (00:07→17:28)
[2018-05-18 04:23] LABS: Absolute Monocytes 0.9 K/uL (0.1-1.3); Absolute Neutrophil 4.3 K/uL (1.8-8.0); Basophils % 0.6 % (0-1.3); Eosinophils % 1.9 % (0-4.4); Hematocrit 38.6 % (39.6-49.0); Lymphocytes % 15.7 % (15.3-44.8); MCH 33.1 pg (27.0-35.0); MCV 99.9 fL (80-100); MPV 7.7 fL (7.6-11.3); Monocytes % 14.6 % (3.3-12.3); RBC Red Blood Cell Count 3.87 M/uL (4.33-5.43)
[2018-05-18 04:33] LABS: Magnesium 2.5 mg/dL (1.8-2.4); Potassium 3.9 mmol/L (3.5-5.1)
[2018-05-18] MEDS ORDERED: POTASSIUM CL SA 10 MEQ TAB PO ONE (04:38)
[2018-05-18] MEDS: ACETAMINOPHEN 500 MG TAB PO PRN ×2 (05:58→20:55)
[2018-05-18] MEDS: LEVOTHYROXINE SOD 0.1 MG TAB PO SCH (05:58)
[2018-05-18] MEDS: LEVOTHYROXINE SOD 0.025 MG TAB PO SCH (05:58)
[2018-05-18] MEDS: IPRATROPIUM BROM 0.5MG/2.5ML NEB SCH ×3 (08:00→20:22)
[2018-05-18] MEDS: SULFAMETHOXAZOLE PO SCH ×2 (08:00→20:00)
[2018-05-18] MEDS: TRIMETHOPRIM PO SCH ×2 (08:00→20:00)
[2018-05-18] MEDS: Tiotropium Bromide [Spiriva Respimat] IH SCH (09:00)
[2018-05-18] MEDS: acetaZOLAMIDE 250 MG TAB PO SCH (09:01)
[2018-05-18] MEDS: ASPIRIN EC 81 MG TAB PO SCH (09:01)
[2018-05-18] MEDS: SACUBITRIL/VALSARTAN 24/26 MG TAB PO SCH ×2 (09:01→20:59)
[2018-05-18] MEDS: METOPROLOL TAR 25 MG TAB PO SCH ×3 (09:01→22:25)
[2018-05-18] MEDS: CLOPIDOGREL 75 MG TABLET PO SCH (09:01)
[2018-05-18] MEDS: DOCUSATE NA 100 MG CAP PO SCH (09:01)
[2018-05-18] MEDS: ENOXAPARIN 30 MG/0.3 ML SQ SCH (09:02)
[2018-05-18] MEDS: TAMSULOSIN 0.4 MG SR CAP PO SCH (09:02)
--- NOTE | 2018-05-19 00:47 | PN ---
Date of Progress Note: 05/18/2018 Subjective: The patient was seen this morning for followup. He was lying in bed, not in distress. Denied any shortness of breath during nighttime. Reports that he is ambulating with physical therapy . No abdominal pain, nausea, vomiting. Objective: Vital Signs: Reviewed. HEENT: Unremarkable. Lungs: Clear to auscultation. No rhonchi or rales. Heart: Sounds normal. Abdomen: Soft. Bowel sounds normal. No guarding, rigidity, tenderness, or distention. Extremities: Bilateral leg edema present. His edema from abdominal wall and both lower extremities is somewhat better, but he still has significant edema in this areas. Laboratory Data: Sodium 141, potassium 3.9, chloride 95, bicarb 41, BUN 36, creatinine 1.60, glucose 88, magnesium 2.5. White count 6.3, hemoglobin 12.8, platelets 203. Impression: 1.Congestive heart failure, chronic, systolic, with acute exacerbation. 2.Chronic kidney disease stage 3. 3.Anemia due to chronic kidney disease. 4.Chronic obstructive pulmonary disease. 5.Metabolic alkalosis. Plan: We will go ahead and continue current medication, which is IV Lasix, oxygen nebulizer treatmen t. Considering the patient's bicarb going up, we will discontinue metolazone and start the patient o n acetazolamide. Monitor intake and output, daily weight, electrolytes, renal function, and I will s ee him tomorrow for followup. Continue DVT prophylaxis. Details and plan of treatment discussed wit h the patient. Later on during the course of day today, the patient's came to office to discuss details and echocardiogram findings, and treatment decisions made during this hospitalization discus sed with her. Overall prognosis is poor. I did talk to the patient's regarding advanced direct nanette, and she has not had a direct discussion with the patient, but she feels like that if there is a ny cardiopulmonary arrest the patient would not have wanted any CPR, defibrillation, or ventilator martinez pport, and I will communicate with the patient to know his decision tomorrow when I see him. I also informed her that if we cannot continue to give him more and more medications to try to get more impr ovement and if we have to back off because of either renal function or electrolyte problem, we may campbell ve to consider hospice care at appropriate time, but we are not there yet but that may change at some point in future, and she understands overall the seriousness of the disease that we are dealing with . I will try to communicate with his blindstitch lapel padder, Dr. Benavides to inform him of what is going on with current hospital stay. REYNA/MODL Voice ID: [id number] Report ID: [id number]
[2018-05-19] MEDS: FUROSEMIDE 40 MG/4 ML VIAL IV SCH ×3 (01:44→16:57)
[2018-05-19 05:10] LABS: Potassium 3.5 mmol/L (3.5-5.1)
[2018-05-19] MEDS: LEVOTHYROXINE SOD 0.1 MG TAB PO SCH (06:25)
[2018-05-19] MEDS: LEVOTHYROXINE SOD 0.025 MG TAB PO SCH (06:30)
[2018-05-19] MEDS ORDERED: POTASSIUM CL SA 10 MEQ TAB PO ONE (07:30)
[2018-05-19] MEDS: IPRATROPIUM BROM 0.5MG/2.5ML NEB SCH ×3 (07:51→19:17)
[2018-05-19] MEDS: TRIMETHOPRIM PO SCH ×2 (08:39→21:18)
[2018-05-19] MEDS: SULFAMETHOXAZOLE PO SCH ×2 (08:39→21:18)
[2018-05-19] MEDS: Fluticasone/Vilanterol [Breo Ellipta 100-25 Mcg Inh] IH SCH (08:40)
[2018-05-19] MEDS: Tiotropium Bromide [Spiriva Respimat] IH SCH (08:40)
[2018-05-19] MEDS: ENOXAPARIN 30 MG/0.3 ML SQ SCH (08:41)
[2018-05-19] MEDS: acetaZOLAMIDE 250 MG TAB PO SCH (08:41)
[2018-05-19] MEDS: METOPROLOL TAR 25 MG TAB PO SCH ×2 (08:42→21:17)
[2018-05-19] MEDS: ASPIRIN EC 81 MG TAB PO SCH (08:42)
[2018-05-19] MEDS: TAMSULOSIN 0.4 MG SR CAP PO SCH (08:42)
[2018-05-19] MEDS: DOCUSATE NA 100 MG CAP PO SCH (08:43)
[2018-05-19] MEDS: CLOPIDOGREL 75 MG TABLET PO SCH (08:43)
[2018-05-19] MEDS: SACUBITRIL/VALSARTAN 24/26 MG TAB PO SCH ×2 (08:43→21:17)
--- NOTE | 2018-05-19 11:33 | PN ---
Date of Progress Note: 05/19/2018 Subjective: The patient was seen this morning for followup, lying in bed, not in any distress. Cachorro ed any specific complaints this morning. Objective: Vital signs: Reviewed. HEENT: Unremarkable. Lungs: Clear to auscultation. Heart: Sounds normal. Abdomen: Soft. Bowel sounds normal. No guarding, rigidity, tenderness, or distention. Extremities: Leg edema present. The patient has significant leg edema still in his both lower extre mities and abdominal wall. Overall that is better than how it was when he first came in. Laboratory Data: Sodium 139, potassium 3.5, chloride 95, bicarb 40, BUN 41, creatinine 1.70, glucose 88. His weight this morning is 179 pounds. Impression: 1.Congestive heart failure, chronic, systolic, with acute exacerbation. 2.Chronic kidney disease stage 3 to stage 4. 3.Anemia due to chronic kidney disease. 4.Chronic obstructive pulmonary disease. 5.Metabolic alkalosis. Plan: We will go ahead and continue other current IV Lasix which is 40 mg every 8 hours. Continue D VT prophylaxis with Lovenox and we will also continue acetazolamide which was started yesterday. Dep ending on his renal function tomorrow, we will decide if we need to cut back on the dose of furosemid e or not. We will also monitor intake output. I did talk to the patient regarding advanced directiv es this morning, and this was in presence of nurse and he did inform me that he does not want any her oic measures like CPR, defibrillation, or any ventilator support in the event of cardiopulmonary arre st, so DNR order was written. I will see him tomorrow for followup. We will repeat blood work tomor row morning. His systolic blood pressure is on the low side this morning 98/54 and we will monitor t hat. We will hold Entresto and metoprolol if systolic blood pressure is less than 100 and hold Lasix if systolic blood pressure less than 90. REYNA/MODL Voice ID: [id number] Report ID: [id number]
[2018-05-20] MEDS: FUROSEMIDE 40 MG/4 ML VIAL IV SCH ×4 (01:36→17:00)
[2018-05-20 05:25] LABS: Magnesium 2.7 mg/dL (1.8-2.4); Potassium 3.5 mmol/L (3.5-5.1)
[2018-05-20] MEDS: LEVOTHYROXINE SOD 0.025 MG TAB PO SCH (06:13)
[2018-05-20] MEDS: LEVOTHYROXINE SOD 0.1 MG TAB PO SCH (06:14)
[2018-05-20] MEDS: TRIMETHOPRIM PO SCH ×2 (08:00→20:00)
[2018-05-20] MEDS: SULFAMETHOXAZOLE PO SCH ×2 (08:00→20:00)
[2018-05-20] MEDS: IPRATROPIUM BROM 0.5MG/2.5ML NEB SCH ×3 (08:00→20:34)
[2018-05-20] MEDS ORDERED: POTASSIUM CL SA 10 MEQ TAB PO ONE (08:30)
[2018-05-20] MEDS: DOCUSATE NA 100 MG CAP PO SCH (08:56)
[2018-05-20] MEDS: ASPIRIN EC 81 MG TAB PO SCH (08:56)
[2018-05-20] MEDS: METOPROLOL TAR 25 MG TAB PO SCH ×2 (08:56→20:25)
[2018-05-20] MEDS: TAMSULOSIN 0.4 MG SR CAP PO SCH (08:56)
[2018-05-20] MEDS: acetaZOLAMIDE 250 MG TAB PO SCH (08:57)
[2018-05-20] MEDS: CLOPIDOGREL 75 MG TABLET PO SCH (08:57)
[2018-05-20] MEDS: ENOXAPARIN 30 MG/0.3 ML SQ SCH (08:57)
[2018-05-20] MEDS: Tiotropium Bromide [Spiriva Respimat] IH SCH (08:59)
[2018-05-20] MEDS: SACUBITRIL/VALSARTAN 24/26 MG TAB PO SCH ×2 (09:14→20:25)
[2018-05-20] MEDS: FAMOTIDINE 20 MG TAB PO PRN (22:07)
[2018-05-21] MEDS: FUROSEMIDE 40 MG/4 ML VIAL IV SCH ×3 (01:32→16:21)
--- NOTE | 2018-05-21 01:47 | PN ---
Date of Progress Note: 05/20/2018 Subjective: The patient was seen this morning for followup. No new complaints or problems reported by him. Lying in bed, not in any distress. Physical Examination: Vital Signs: Reviewed. HEENT: Examination unremarkable. Lungs: Clear to auscultation. No rhonchi or rales. Heart: Sounds normal. Abdomen: Soft. Bowel sounds normal. No guarding, rigidity, tenderness, or distention. Extremities: Bilateral leg edema as well as edema of abdominal wall remains unchanged from yesterday . Laboratory Data: Sodium 139, potassium 3.5, chloride 93, bicarb 42, BUN 43, creatinine 1.60, glucose 97, and magnesium 2.7. Impression: 1.Congestive heart failure, chronic, systolic, with acute exacerbation. 2.Chronic kidney disease, stage 3. 3.Chronic obstructive pulmonary disease. 4.Anemia due to chronic kidney disease. Plan: We will continue current medication. The patient to continue to work with physical therapy to help ambulate the patient. We will continue current IV Lasix and acetazolamide by mouth per order. Continue Entresto. The patient's congestive heart failure problem is not improving as well as expec dustin, and we will go ahead and consult our desk attendant. I did call the patient's desk attendant in [place], Dr. Benavides, and details were disc ussed with him. REYNA/MODL Voice ID: [id number] Report ID: [id number]
[2018-05-21] MEDS: LEVOTHYROXINE SOD 0.1 MG TAB PO SCH (05:35)
[2018-05-21] MEDS: LEVOTHYROXINE SOD 0.025 MG TAB PO SCH (05:35)
[2018-05-21 06:53] LABS: Magnesium 2.7 mg/dL (1.8-2.4); Potassium 3.2 mmol/L (3.5-5.1)
[2018-05-21] MEDS ORDERED: POTASSIUM 25 MEQ EFFERV TAB PO ONE (07:19)
[2018-05-21] MEDS: IPRATROPIUM BROM 0.5MG/2.5ML NEB SCH ×3 (07:20→20:00)
[2018-05-21] MEDS: SULFAMETHOXAZOLE PO SCH ×2 (09:00→21:48)
[2018-05-21] MEDS: TRIMETHOPRIM PO SCH ×2 (09:00→21:48)
[2018-05-21] MEDS: TAMSULOSIN 0.4 MG SR CAP PO SCH (09:35)
[2018-05-21] MEDS: DOCUSATE NA 100 MG CAP PO SCH (09:36)
[2018-05-21] MEDS: ENOXAPARIN 30 MG/0.3 ML SQ SCH (09:36)
[2018-05-21] MEDS: METOPROLOL TAR 25 MG TAB PO SCH ×2 (09:36→21:48)
[2018-05-21] MEDS: ASPIRIN EC 81 MG TAB PO SCH (09:37)
[2018-05-21] MEDS: acetaZOLAMIDE 250 MG TAB PO SCH (09:37)
[2018-05-21] MEDS: SACUBITRIL/VALSARTAN 24/26 MG TAB PO SCH ×2 (09:37→21:48)
[2018-05-21] MEDS: CLOPIDOGREL 75 MG TABLET PO SCH (09:37)
[2018-05-21] MEDS: Fluticasone/Vilanterol [Breo Ellipta 100-25 Mcg Inh] IH SCH (09:38)
[2018-05-21] MEDS: Tiotropium Bromide [Spiriva Respimat] IH SCH (10:00)
[2018-05-21] MEDS ORDERED: POTASSIUM CL SA 10 MEQ TAB PO ONE (16:06)
--- NOTE | 2018-05-21 18:11 | PN ---
Date of Progress Note: 05/21/2018 Subjective: The patient was seen this morning for followup. No new complaints or problems reported by him, lying in bed, sleeping, easily arousable, not in distress. Denies any complaints. Objective: Vital Signs: Reviewed. Intake and output records reviewed. The patient's weight today is 177 pounds, thus the lowest weight for this admission. HEENT: Examination unremarkable. Lungs: Clear to auscultation. Heart: Sounds normal. Abdomen: Soft. Bowel sounds normal. No guarding, rigidity, tenderness, or distention. Extremities: Bilateral leg edema and edema of abdominal wall. It is slightly better than last 2 to 3 days. Laboratory Data: Sodium 140, potassium 3.2, chloride 100, bicarb 33, BUN 41, creatinine 1.50, glucos e 95, and magnesium 2.7. Impression: 1.Congestive heart failure, chronic, systolic, with acute exacerbation. 2.Chronic obstructive pulmonary disease. 3.Hypokalemia. 4.Chronic kidney disease, stage 3. 5.Anemia due to chronic kidney disease. Plan: We will go ahead and continue current Lasix, continue current acetazolamide. Replace electrol yte per protocol. The patient is slowly improving. Details were discussed with chemistry technical officer, Dr. Pawel agustin and I will see him tomorrow for followup. I still believe that the patient still has significa nt amount of fluid buildup. I would like to continue to diurese him. Hopefully, if we can reduce hi s weight by another 10 to 15 pounds with the diuretic therapy safely, he will be in much better condition. We will continue Entresto. REYNA/MODL Voice ID: [id number] Report ID: [id number]
[2018-05-22] MEDS ORDERED: POTASSIUM CL SA 10 MEQ TAB PO ONE ×2 (00:29→09:00)
[2018-05-22] MEDS: FUROSEMIDE 40 MG/4 ML VIAL IV SCH ×3 (00:48→16:44)
[2018-05-22] MEDS: FAMOTIDINE 20 MG TAB PO PRN (00:48)
[2018-05-22] MEDS: LEVOTHYROXINE SOD 0.025 MG TAB PO SCH (05:40)
[2018-05-22] MEDS: LEVOTHYROXINE SOD 0.1 MG TAB PO SCH (05:40)
[2018-05-22 07:00] LABS: Potassium 3.7 mmol/L (3.5-5.1)
[2018-05-22] MEDS: IPRATROPIUM BROM 0.5MG/2.5ML NEB SCH ×3 (08:43→20:07)
[2018-05-22] MEDS: SULFAMETHOXAZOLE PO SCH ×2 (08:58→20:36)
[2018-05-22] MEDS: TRIMETHOPRIM PO SCH ×2 (08:58→20:36)
[2018-05-22] MEDS: SACUBITRIL/VALSARTAN 24/26 MG TAB PO SCH ×2 (08:58→20:38)
[2018-05-22] MEDS: acetaZOLAMIDE 250 MG TAB PO SCH (08:58)
[2018-05-22] MEDS: CLOPIDOGREL 75 MG TABLET PO SCH (08:59)
[2018-05-22] MEDS: ENOXAPARIN 30 MG/0.3 ML SQ SCH (08:59)
[2018-05-22] MEDS: Tiotropium Bromide [Spiriva Respimat] IH SCH (08:59)
[2018-05-22] MEDS: TAMSULOSIN 0.4 MG SR CAP PO SCH (08:59)
[2018-05-22] MEDS: DOCUSATE NA 100 MG CAP PO SCH (08:59)
[2018-05-22] MEDS: ASPIRIN EC 81 MG TAB PO SCH (08:59)
[2018-05-22] MEDS: METOPROLOL TAR 25 MG TAB PO SCH ×2 (09:01→20:38)
--- NOTE | 2018-05-22 16:36 | PN ---
Date of Progress Note: 05/22/2018 Subjective: The patient was seen this morning for followup. He was sleeping, not in distress. Objective: VITAL SIGNS: Reviewed. His weight today is 175 pounds. HEENT: Unremarkable. LUNGS: Clear to auscultation. HEART: Sounds normal. ABDOMEN: Soft. Bowel sounds normal. No guarding, rigidity, tenderness, or distention. EXTREMITIES: Leg edema. Remains unchanged from yesterday and edema of abdominal wall remains unchan ged. Laboratory Data: Sodium 139, potassium 3.7, chloride 99, bicarb 37, BUN 43, creatinine 1.60, glucose 103. Impression: 1.Congestive heart failure, chronic, systolic, with acute exacerbation. 2.Chronic kidney disease, stage 3. 3.Metabolic alkalosis. 4.Chronic obstructive pulmonary disease. 5.Anemia due to chronic kidney disease. Plan: We will continue current medications. Continue current diuretic therapy, oxygen nebulizer jasvir atment, ambulation with physical therapy, and we will see him tomorrow for followup. Details were di scussed with the patient's and she was made aware of my discussion with Dr. Benavides and Dr. Alves i, and plan is to continue to diurese him as much as I can, hoping to achieve 10 to 15 pounds weight loss with diuretic therapy and possible discharge to go home sometime next week, and this 10 to 15 pounds weight loss that I am planning to achieve is from current weight. REYNA/MODL Voice ID: [id number] Report ID: [id number]
[2018-05-23] MEDS: ACETAMINOPHEN 500 MG TAB PO PRN (00:26)
[2018-05-23] MEDS: FAMOTIDINE 20 MG TAB PO PRN (00:30)
[2018-05-23] MEDS: FUROSEMIDE 40 MG/4 ML VIAL IV SCH ×3 (00:31→16:48)
[2018-05-23] MEDS: LEVOTHYROXINE SOD 0.1 MG TAB PO SCH (05:44)
[2018-05-23] MEDS: LEVOTHYROXINE SOD 0.025 MG TAB PO SCH (05:45)
[2018-05-23 06:37] LABS: Absolute Lymphocytes (CBC) 0.8 K/uL (0.7-4.9); Absolute Monocytes 0.8 K/uL (0.1-1.3); Absolute Neutrophil 4.3 K/uL (1.8-8.0); Basophils % 0.9 % (0-1.3); Eosinophils % 1.4 % (0-4.4); Hematocrit 38.9 % (39.6-49.0); Lymphocytes % 13.9 % (15.3-44.8); MCV 100.3 fL (80-100); MPV 7.7 fL (7.6-11.3); Monocytes % 13.1 % (3.3-12.3); RBC Red Blood Cell Count 3.88 M/uL (4.33-5.43)
[2018-05-23 06:56] LABS: Magnesium 2.9 mg/dL (1.8-2.4); Potassium 3.4 mmol/L (3.5-5.1)
[2018-05-23] MEDS: IPRATROPIUM BROM 0.5MG/2.5ML NEB SCH ×3 (08:53→19:20)
[2018-05-23] MEDS ORDERED: POTASSIUM CL SA 10 MEQ TAB PO ONE ×2 (09:00→18:19)
[2018-05-23] MEDS: TRIMETHOPRIM PO SCH ×2 (09:46→20:30)
[2018-05-23] MEDS: SULFAMETHOXAZOLE PO SCH ×2 (09:46→20:30)
[2018-05-23] MEDS: ASPIRIN EC 81 MG TAB PO SCH (09:46)
[2018-05-23] MEDS: CLOPIDOGREL 75 MG TABLET PO SCH (09:46)
[2018-05-23] MEDS: TAMSULOSIN 0.4 MG SR CAP PO SCH (09:46)
[2018-05-23] MEDS: SACUBITRIL/VALSARTAN 24/26 MG TAB PO SCH ×2 (09:47→20:30)
[2018-05-23] MEDS: METOPROLOL TAR 25 MG TAB PO SCH ×2 (09:47→20:31)
[2018-05-23] MEDS: DOCUSATE NA 100 MG CAP PO SCH (09:47)
[2018-05-23] MEDS: acetaZOLAMIDE 250 MG TAB PO SCH (09:47)
[2018-05-23] MEDS: Fluticasone/Vilanterol [Breo Ellipta 100-25 Mcg Inh] IH SCH (09:48)
[2018-05-23] MEDS: Tiotropium Bromide [Spiriva Respimat] IH SCH (09:48)
[2018-05-23] MEDS: ENOXAPARIN 30 MG/0.3 ML SQ SCH (09:49)
--- NOTE | 2018-05-23 16:19 | PN ---
Date of Progress Note: 05/23/2018 Subjective: The patient was seen this morning for followup. He was sitting in chair. Denied any co mplaints this morning. No chest pain, no shortness of breath, nausea, vomiting. Objective: Vital Signs: Reviewed. Intake and output records reviewed. His weight is 170 pounds. Yesterday, it was 175 pounds. HEENT: Unremarkable. Lungs: Clear to auscultation. No rhonchi or rales. Heart: Sounds normal. Abdomen: Soft. Bowel sounds normal. No guarding, rigidity, tenderness, distention. Extremities: Bilateral leg edema present. The patient has edema of both lower extremity and abdomin al wall laterally, posteriorly, and anteriorly. Overall, this is improving. Laboratory Data: White count 6.1, hemoglobin 12.8, platelets 194. Sodium 141, potassium 3.4, chlori de 101, bicarb 35, BUN 40, creatinine 1.60, glucose 95. Impression: 1.Congestive heart failure, chronic, systolic, with acute exacerbation. 2.Hypokalemia. 3.Chronic kidney disease, stage 3. 4.Chronic obstructive pulmonary disease. 5.Anemia due to chronic kidney disease. Plan: We will continue current medications. Continue current Lasix IV and acetazolamide per order. We will also continue current Entresto, oxygen nebulizer treatment. Replace electrolyte per protocol. I will see him tomorrow for followup. Possible discharge to go home hopefully by middle o f next week. REYNA/MODL Voice ID: [id number] Report ID: [id number]
[2018-05-24] MEDS: FUROSEMIDE 40 MG/4 ML VIAL IV SCH ×3 (01:00→17:10)
--- NOTE | 2018-05-24 02:49 | CON ---
Date of Consultation: 05/21/2018 Reason For Consultation: CHF. History Of Present Illness: Mr. Venegas is 77, has a history of CHF, chronic renal disease stage 3, [employer], status post pacemaker, has a history of hypothyroidism, atrial fibrillation, and dyslipidemia. He came in with congestive heart failure that has not improved. I was consulted. Allergies: HIS ALLERGIES INCLUDE MORPHINE. Review of Systems: Negative. Social History: Negative. Family History: Negative. Medications: Include Procardia, metoprolol, Zaroxolyn, Flomax, home oxygen, thyroid, inhalers, Lasix , Lopressor, Plavix, and aspirin. Physical Examination: Vital Signs: Stable. He was afebrile. HEENT: Negative. Neck: Supple with no bruit. Chest: Reveals some rales at both bases. Cardiac exam: Revealed a regular rhythm and rate. No murmurs or gallops or rubs. Abdomen: Benign. Extremities: Revealed 1+ edema. Diagnostic Data: EKG showed paced rhythm. Laboratory Data: Creatinine is 1.6. Echocardiogram showed an EF of 35% with a right ventricular enl argement and right atrial enlargement. Impression And Plan: 1.Acute exacerbation of chronic systolic congestive heart failure. 2.Status post pacemaker. 3.Chronic obstructive pulmonary disease. 4.Chronic renal disease, stage 3. 5.Hypothyroidism. 6.History of atrial fibrillation. 7.Dyslipidemia. I will discuss the case with Dr. Rose. He may be a good candidate for Entresto. I will continue his other present regimen otherwise. Consi temitope doing a Lexiscan on him if he stays in the hospital until Thursday, otherwise we could do this as a n outpatient and consider doing another catheterization. JACQUELINE/YUNIER Voice ID: [id number] Report ID: [id number]
[2018-05-24 04:34] LABS: Potassium 3.6 mmol/L (3.5-5.1)
[2018-05-24] MEDS ORDERED: POTASSIUM CL SA 10 MEQ TAB PO ONE (05:35)
[2018-05-24] MEDS: LEVOTHYROXINE SOD 0.1 MG TAB PO SCH (06:24)
[2018-05-24] MEDS: LEVOTHYROXINE SOD 0.025 MG TAB PO SCH (06:24)
[2018-05-24] MEDS: IPRATROPIUM BROM 0.5MG/2.5ML NEB SCH ×3 (07:24→20:06)
[2018-05-24] MEDS: SULFAMETHOXAZOLE PO SCH ×2 (09:59→20:22)
[2018-05-24] MEDS: TRIMETHOPRIM PO SCH ×2 (09:59→20:22)
[2018-05-24] MEDS: ENOXAPARIN 30 MG/0.3 ML SQ SCH (09:59)
[2018-05-24] MEDS: ASPIRIN EC 81 MG TAB PO SCH (10:01)
[2018-05-24] MEDS: METOPROLOL TAR 25 MG TAB PO SCH ×2 (10:01→20:23)
[2018-05-24] MEDS: DOCUSATE NA 100 MG CAP PO SCH (10:01)
[2018-05-24] MEDS: acetaZOLAMIDE 250 MG TAB PO SCH (10:01)
[2018-05-24] MEDS: CLOPIDOGREL 75 MG TABLET PO SCH (10:01)
[2018-05-24] MEDS: SACUBITRIL/VALSARTAN 24/26 MG TAB PO SCH ×2 (10:02→20:22)
[2018-05-24] MEDS: Tiotropium Bromide [Spiriva Respimat] IH SCH (10:03)
[2018-05-24] MEDS: TAMSULOSIN 0.4 MG SR CAP PO SCH (10:04)
--- NOTE | 2018-05-25 00:31 | PN ---
Date of Progress Note: 05/24/2018 Subjective: The patient was seen this morning for followup. No new complaints or problems reported by patient. He was lying in bed. Denied any complaints overnight. Objective: Vital Signs: Reviewed. HEENT: Unremarkable. Lungs: Clear to auscultation. No rhonchi. No rales. Heart: Sounds normal. Abdomen: Soft. Bowel sounds normal. No guarding, rigidity, tenderness, distention. Extremities: Bilateral leg edema present, but overall better than before. Laboratory Data: Sodium 144, potassium 3.6, chloride 103, bicarb 35, BUN 38, creatinine 1.50, glucos e 86. Impression: 1.Congestive heart failure, chronic, diastolic, with acute exacerbation. 2.Chronic obstructive pulmonary disease. 3.Chronic kidney disease, stage 3. 4.Anemia due to chronic kidney disease. Plan: The patient is doing very well. He has responded very well to current treatment. Continue cu rrent diuretic therapy and Entresto, oxygen nebulizer treatment. Renal function is stable. Electrol ytes are stable. His weight is improving today. His weight was 166 pounds. He still has significan t edema of his abdominal wall anteriorly and posteriorly and laterally and his both thighs, and we will continue to diurese with cu rrent diuretic therapy. REYNA/MODL Voice ID: [id number] Report ID: [id number]
[2018-05-25] MEDS: FUROSEMIDE 40 MG/4 ML VIAL IV SCH ×3 (00:41→17:21)
[2018-05-25] MEDS: LEVOTHYROXINE SOD 0.025 MG TAB PO SCH (05:46)
[2018-05-25] MEDS: LEVOTHYROXINE SOD 0.1 MG TAB PO SCH (05:46)
[2018-05-25 07:07] LABS: Potassium 3.6 mmol/L (3.5-5.1)
[2018-05-25 07:28] VITALS: BMI 27.8
[2018-05-25] MEDS: IPRATROPIUM BROM 0.5MG/2.5ML NEB SCH ×3 (07:45→20:39)
[2018-05-25] MEDS ORDERED: POTASSIUM CL SA 10 MEQ TAB PO ONE (09:00)
[2018-05-25] MEDS: ENOXAPARIN 30 MG/0.3 ML SQ SCH (09:32)
[2018-05-25] MEDS: SULFAMETHOXAZOLE PO SCH ×2 (09:37→20:55)
[2018-05-25] MEDS: TRIMETHOPRIM PO SCH ×2 (09:37→20:55)
[2018-05-25] MEDS: SACUBITRIL/VALSARTAN 24/26 MG TAB PO SCH ×2 (09:37→20:55)
[2018-05-25] MEDS: DOCUSATE NA 100 MG CAP PO SCH (09:38)
[2018-05-25] MEDS: TAMSULOSIN 0.4 MG SR CAP PO SCH (09:38)
[2018-05-25] MEDS: acetaZOLAMIDE 250 MG TAB PO SCH (09:38)
[2018-05-25] MEDS: ASPIRIN EC 81 MG TAB PO SCH (09:38)
[2018-05-25] MEDS: METOPROLOL TAR 25 MG TAB PO SCH ×2 (09:39→20:55)
[2018-05-25] MEDS: CLOPIDOGREL 75 MG TABLET PO SCH (09:39)
[2018-05-25] MEDS: Tiotropium Bromide [Spiriva Respimat] IH SCH (09:40)
[2018-05-25] MEDS: Fluticasone/Vilanterol [Breo Ellipta 100-25 Mcg Inh] IH SCH (09:42)
--- NOTE | 2018-05-25 12:30 | PN ---
Date of Progress Note: 05/25/2018 Subjective: The patient was seen this morning for followup. No new complaints or problems reported by him. Sleeping, easily arousable, not in distress. Intake and output records reviewed. His weigh t this morning is 162 pounds. Objective: HEENT: Unremarkable. Lungs: Clear to auscultation. No rhonchi. No rales. Heart: Sounds normal. Abdomen: Soft. Bowel sounds normal. No guarding, rigidity, tenderness, or distention. Extremities: Bilateral leg edema. Mostly edema from lower part of the leg has improved significantl y. He has probably grade 1 edema in the lower half of both legs. Most of the edema now is concentra dustin in upper half of both thighs and his lateral abdominal wall. Laboratory Data: Sodium 140, potassium 3.6, chloride 105, bicarb 26, BUN 37, creatinine 1.40, glucos e 81, magnesium 3. Impression: 1.Congestive heart failure, chronic, systolic, with acute exacerbation. 2.Chronic kidney disease stage 3. 3.Anemia due to chronic kidney disease. 4.Chronic obstructive pulmonary disease. Plan: The patient is improving very well. We will continue current treatment for congestive heart f ailure as well as COPD. Possible discharge to go home this week and that will happen probably in nex t 1 or 2 days depending on his condition. We would like to continue to diurese him as much as we can . He still has significant amount of edema, mostly now concentrated around lateral abdominal wall, posterior lower trunk, and upper half of thighs as mentioned earlier in the note. This is again over all significantly better. REYNA/MODL Voice ID: [id number] Report ID: [id number]
[2018-05-25] MEDS: ACETAMINOPHEN 500 MG TAB PO PRN (20:56)
[2018-05-26] MEDS: FUROSEMIDE 40 MG/4 ML VIAL IV SCH ×3 (00:22→16:57)
[2018-05-26 04:59] LABS: Magnesium 2.7 mg/dL (1.8-2.4); Potassium 3.4 mmol/L (3.5-5.1)
[2018-05-26] MEDS: LEVOTHYROXINE SOD 0.1 MG TAB PO SCH (05:38)
[2018-05-26] MEDS: LEVOTHYROXINE SOD 0.025 MG TAB PO SCH (05:38)
[2018-05-26] MEDS ORDERED: POTASSIUM CL SA 10 MEQ TAB PO ONE (06:00)
[2018-05-26] MEDS: IPRATROPIUM BROM 0.5MG/2.5ML NEB SCH ×3 (07:28→19:47)
[2018-05-26] MEDS: DOCUSATE NA 100 MG CAP PO SCH (08:53)
[2018-05-26] MEDS: TAMSULOSIN 0.4 MG SR CAP PO SCH (08:54)
[2018-05-26] MEDS: CLOPIDOGREL 75 MG TABLET PO SCH (08:54)
[2018-05-26] MEDS: acetaZOLAMIDE 250 MG TAB PO SCH (08:54)
[2018-05-26] MEDS: METOPROLOL TAR 25 MG TAB PO SCH ×2 (08:54→20:14)
[2018-05-26] MEDS: SACUBITRIL/VALSARTAN 24/26 MG TAB PO SCH ×2 (08:54→20:15)
[2018-05-26] MEDS: ASPIRIN EC 81 MG TAB PO SCH (08:54)
[2018-05-26] MEDS: ENOXAPARIN 30 MG/0.3 ML SQ SCH (08:55)
[2018-05-26] MEDS: SULFAMETHOXAZOLE PO SCH ×2 (08:59→20:15)
[2018-05-26] MEDS: TRIMETHOPRIM PO SCH ×2 (08:59→20:15)
[2018-05-26] MEDS: Tiotropium Bromide [Spiriva Respimat] IH SCH (08:59)
--- NOTE | 2018-05-26 12:28 | PN ---
Date of Progress Note: 05/26/2018 Subjective: The patient was seen this morning for followup. No new complaints or problems reported by him. Lying in bed not in distress. Denies any shortness of breath, PND, or orthopnea. Objective: Vital signs: Reviewed. Denies any constipation problem. Intake and output records revi ewed. HEENT: Unremarkable. Lungs: Clear to auscultation. Heart: Sounds normal. Abdomen: Soft. Bowel sounds normal. No guarding, rigidity, tenderness, or distention. Extremities: Leg edema present. Trace edema in the area between knee and ankle and about grade 2 ed ann marie in upper thigh, mostly lateral aspect of the thighs and lateral abdominal wall. Overall signific antly better than before. Laboratory Data: Sodium 142, potassium 3.4, chloride 103, bicarb 34, BUN 39, creatinine 1.50, glucos e 90. His weight today is 162 pounds. Impression: 1.Congestive heart failure, chronic, systolic, with acute exacerbation. 2.Hypokalemia. 3.Chronic kidney disease, stage 3. 4.Anemia due to chronic kidney disease. 5.Chronic obstructive pulmonary disease. Plan: We will go ahead and continue current medications. Continue current diuretic therapy, monitor ing of electrolytes, renal function. Hypokalemia will be corrected using electrolyte replacement pro tocol. I will see him tomorrow for followup. Yesterday, I did discuss details with the patient's wi fe, who came into office to discuss the updates and progress and details were discussed with her. Ou r plan is to possibly discharge him to go home by Thursday depending on his clinical condition. Details were dis cussed with the patient as well. RYENA/MODL Voice ID: [id number] Report ID: [id number]
[2018-05-27] MEDS: FUROSEMIDE 40 MG/4 ML VIAL IV SCH ×3 (00:11→17:56)
[2018-05-27] MEDS: LEVOTHYROXINE SOD 0.025 MG TAB PO SCH (05:53)
[2018-05-27] MEDS: ACETAMINOPHEN 500 MG TAB PO PRN (05:53)
[2018-05-27] MEDS: LEVOTHYROXINE SOD 0.1 MG TAB PO SCH (05:53)
[2018-05-27 06:02] LABS: Potassium 3.5 mmol/L (3.5-5.1)
[2018-05-27] MEDS: IPRATROPIUM BROM 0.5MG/2.5ML NEB SCH ×3 (07:45→19:57)
[2018-05-27] MEDS ORDERED: POTASSIUM CL SA 10 MEQ TAB PO ONE ×2 (09:00→18:00)
[2018-05-27] MEDS: SULFAMETHOXAZOLE PO SCH ×2 (10:13→20:13)
[2018-05-27] MEDS: TRIMETHOPRIM PO SCH ×2 (10:13→20:13)
[2018-05-27] MEDS: Fluticasone/Vilanterol [Breo Ellipta 100-25 Mcg Inh] IH SCH (10:13)
[2018-05-27] MEDS: Tiotropium Bromide [Spiriva Respimat] IH SCH (10:13)
[2018-05-27] MEDS: acetaZOLAMIDE 250 MG TAB PO SCH (10:14)
[2018-05-27] MEDS: DOCUSATE NA 100 MG CAP PO SCH (10:14)
[2018-05-27] MEDS: TAMSULOSIN 0.4 MG SR CAP PO SCH (10:14)
[2018-05-27] MEDS: SACUBITRIL/VALSARTAN 24/26 MG TAB PO SCH ×2 (10:14→20:13)
[2018-05-27] MEDS: METOPROLOL TAR 25 MG TAB PO SCH ×2 (10:15→20:14)
[2018-05-27] MEDS: CLOPIDOGREL 75 MG TABLET PO SCH (10:15)
[2018-05-27] MEDS: ENOXAPARIN 30 MG/0.3 ML SQ SCH (10:15)
[2018-05-27] MEDS: ASPIRIN EC 81 MG TAB PO SCH (10:17)
--- NOTE | 2018-05-27 12:13 | PN ---
Date of Progress Note: 05/27/2018 Subjective: The patient was seen this morning for followup. No new complaints or problems reported by the patient. Feeling fine. Denies any shortness of breath, nausea, vomiting. Ambulates with phy sical therapy well. Intake output records reviewed. Physical Examination: Vital signs: Reviewed. His weight this morning was recorded as 156 pounds. HEENT: Unremarkable. Lungs: Clear to auscultation. Heart: Sounds normal. Abdomen: Soft. Bowel sounds normal. No guarding, rigidity, tenderness, or distention. Extremities : Leg edema present, a small area of edema now on the lateral thigh and lateral abdominal wall and t his is I would probably grade it as grade 1 compared to how it was before. Laboratory Data: Sodium 140, potassium 3.5, chloride 105, bicarb 31, BUN 36, creatinine 1.40, glucos e 90. Impression: 1.Congestive heart failure, chronic, systolic, with acute exacerbation. 2.Chronic kidney disease, stage 3. 3.Chronic obstructive pulmonary disease. 4.Anemia due to chronic kidney disease. Plan: We will go ahead and continue current Entresto as well as oxygen nebulizer treatment, diuretic therapy. Plan is to discharge him to go home tomorrow and the patient's came to talk to me a c ouple of days ago regarding the home health care and home health agency and she had a list and she wa s advised to choose any local home health agency out of the local area and Social Service to help make arrangements for that. Possible discharge to go home tomorrow. REYNA/PATIL Voice ID: [id number] Report ID: [id number]
[2018-05-27 20:40] VITALS: O2SAT 98
[2018-05-28] MEDS: ACETAMINOPHEN 500 MG TAB PO PRN (00:10)
[2018-05-28] MEDS: FUROSEMIDE 40 MG/4 ML VIAL IV SCH ×2 (00:10→08:41)
[2018-05-28] MEDS ORDERED: POTASSIUM CL SA 10 MEQ TAB PO ONE (05:00)
[2018-05-28] MEDS: LEVOTHYROXINE SOD 0.1 MG TAB PO SCH (05:37)
[2018-05-28] MEDS: LEVOTHYROXINE SOD 0.025 MG TAB PO SCH (05:37)
[2018-05-28 06:57] LABS: Potassium 3.6 mmol/L (3.5-5.1)
[2018-05-28] MEDS: IPRATROPIUM BROM 0.5MG/2.5ML NEB SCH (07:48)
[2018-05-28] MEDS: Tiotropium Bromide [Spiriva Respimat] IH SCH (08:38)
[2018-05-28] MEDS: SULFAMETHOXAZOLE PO SCH (08:39)
[2018-05-28] MEDS: TRIMETHOPRIM PO SCH (08:39)
[2018-05-28] MEDS: METOPROLOL TAR 25 MG TAB PO SCH (08:41)
[2018-05-28] MEDS: acetaZOLAMIDE 250 MG TAB PO SCH (08:41)
[2018-05-28] MEDS: CLOPIDOGREL 75 MG TABLET PO SCH (08:41)
[2018-05-28] MEDS: SACUBITRIL/VALSARTAN 24/26 MG TAB PO SCH (08:41)
[2018-05-28] MEDS: ENOXAPARIN 30 MG/0.3 ML SQ SCH (08:41)
[2018-05-28] MEDS: DOCUSATE NA 100 MG CAP PO SCH (08:42)
[2018-05-28] MEDS: ASPIRIN EC 81 MG TAB PO SCH (08:42)
[2018-05-28] MEDS: TAMSULOSIN 0.4 MG SR CAP PO SCH (08:42)
[2018-05-28 12:14] VITALS: BP 98/50; TEMP 97
--- NOTE | 2018-05-29 04:48 | DS ---
Date of Discharge: 05/28/2018 Disposition: Discharged to go home. Physical Examination: HEENT: Unremarkable. Lungs: Clear to auscultation. Heart: Sounds normal. Abdomen: Soft. Bowel sounds normal. No guarding, rigidity, tenderness, distention. Extremities: Very trace leg edema involving lower legs between knees and ankles and trace to grade 1 edema of lateral thigh and lateral abdominal wall. This is overall significantly better than before . Today, his weight is 152 pounds. When he came in, his weight was recorded as 182 pounds. His highes t weight recorded during this hospitalization was 185 pounds on 05/16, and after that, he started los ing weight and last weight today 152 pounds. Laboratory Data: Initial white count 5.3, hemoglobin 12.6, platelets 203. Last white count on 05/23 6.1, hemoglobin 12.8, platelets 194. Last chemistry today sodium 141, potassium 3.6, chloride 106, bicarb 29, BUN 35, creatinine 1.30, glucose 84. His initial sodium 138, potassium 4.6, chloride 97, bicarb 35, BUN 30, creatinine 1.50, glucose 104. Liver function tests unremarkable. TSH 6.3. Echocardiogram shows ejection fraction 35%, severe global hypokinesis, mild mitral regurgitation, rig ht ventricular enlargement, left atrial enlargement, right atrial enlargement. Hospital Course: A 77-year-old male patient admitted to the hospital after he came into office with complaints of fluid retention. Please see dictated H and P for more information. After patient was evaluated at the office, he was admitted to the hospital with acute exacerbation of his congestive he art failure. Please see dictated H and P for more information. The patient was started on IV Lasix. His intake, output, and weight was followed on a daily basis. With his IV Lasix, he started to diu rese, but not as well as we expected and his bicarbonate started to go up. His initial bicarbonate w as 35 and then it went up to 42 on 05/20/2018, that was the highest bicarb. We started him on acetaz juliana 250 mg p.o. daily and this was initiated on 05/18/2018. His IV Lasix initially was 40 mg twi ce a day and then it was increased to 40 mg every 8 hours. Initially, he was also on Zaroxolyn on a daily basis, but when bicarb went up, we discontinued that. With this combination of IV Lasix as wel l as oral acetazolamide, he started to diurese very well. He was placed on 1000 cc per day fluid res triction and physical therapy was consulted. The patient has lost 30 pounds during this hospitalizat ion and that was all water weight. He has very minimum amount of fluid retention on the lateral abdo sydnie wall and lateral thigh, but this is significantly better compared to how it was when he came in to the hospital. His TSH was slightly high and levothyroxine dose was adjusted. Potassium was low, which was corrected with help of electrolyte replacement protocol. Cardiology consultation was reque cecilia from Dr. Mckeon. Once we saw patient's low ejection fraction on echocardiogram, we started him on Entresto and he has tolerated that very well. He was also given DVT prophylaxis using Lovenox. His other home medications were continued. Today, patient is being discharged in stable condition wi th significant improvement in his fluid retention problem and I did talk to him about importance of l ow-salt diet and 1000 cc per day fluid restriction that he should continue that on an ongoing basis a nd take medication as prescribed. Discharge Medication And Instructions: 1.Anoro Ellipta inhaler 1 puff daily. 2.Aspirin 81 mg daily. 3.Bactrim single-strength 1 tablet 2 times a day. 4.Clopidogrel 75 mg p.o. daily. 5.Furosemide 40 mg and the patient to take 2 tablets by mouth 2 times a day. 6.Atrovent nebulizer treatment 4 times a day as needed. 7.Stop levothyroxine 100 mcg dose and start levothyroxine 125 mcg p.o. daily. 8.Stop metolazone. 9.Continue metoprolol 25 mg tablet to take half tablet 2 times a day. 10.Stop nifedipine. 11.Continue tamsulosin 0.4 mg p.o. daily. 12.Continue Nitrostat p.r.n. 13.Potassium chloride 20 mEq 1 tablet p.o. daily to be continued. 14.Entresto 24/26 mg 1 tablet p.o. twice a day. 15.Acetazolamide 250 mg p.o. daily. 16.Follow up at my office in 1 week. Final Diagnoses: 1.Congestive heart failure, chronic, systolic, with acute exacerbation. 2.Chronic atrial fibrillation. 3.Hypertension. 4.Metabolic alkalosis. 5.Hypokalemia. 6.Hyperlipidemia. 7.Chronic obstructive pulmonary disease. 8.Chronic kidney disease, stage 3. 9.Anemia due to chronic kidney disease. 10.Hypothyroidism. REYNA/MODL Voice ID: [id number] Report ID: [id number]
== END 2018-05-28 12:42 | disposition home or self-care (01) | DRG 291 ==
LOC: 4TH 13:53
PROVIDERS: ADMIT Internal Medicine; ATTEND Internal Medicine
DX: I13.0 Hypertensive heart and chronic kidney disease with heart failure and stage 1 through stage 4 chronic kidney disease, or unspecified chronic kidney disease (principal); I50.23 Acute on chronic systolic (congestive) heart failure; E87.3 Alkalosis; N18.3 Chronic kidney disease, stage 3 (moderate); I48.2 Chronic atrial fibrillation; E87.6 Hypokalemia; E78.5 Hyperlipidemia, unspecified; Z66 Do not resuscitate; J44.9 Chronic obstructive pulmonary disease, unspecified; E03.9 Hypothyroidism, unspecified; D63.1 Anemia in chronic kidney disease; Z95.0 Presence of cardiac pacemaker; Z87.891 Personal history of nicotine dependence
CPT/HCPCS: 36415; 71046; 80048; 80053; 81001; 83735; 84132; 84439; 84443; 85025; 93306; 94640; 97163; J1650; J2405

== ENCOUNTER 2020-09-29 18:56 | Inpatient (IN) | payer OTHER ==
[2020-09-29] MEDS ORDERED: MEPERIDINE HCL 25 MG/ML SYR IV PRN (19:27)
[2020-09-29] MEDS ORDERED: NITROGLYCERIN 0.4 MG/TAB SL PRN (19:59)
[2020-09-29] MEDS: IPRATROPIUM BROM 0.5MG/2.5ML NEB SCH (20:00)
[2020-09-29] MEDS ORDERED: PIPER/TAZO/NS 3.375gm 3.375 GM/100 ML BAG IVPB ONE (20:00)
[2020-09-29] MEDS: ALBUTEROL 2.5 MG/3 ML NEB SOL NEB SCH (20:18)
[2020-09-29] MEDS: D5 0.9 NS 1,000 ML IV SCH (20:53)
[2020-09-29] MEDS: HEPARIN 5000 UNIT/ML 1 ML VIAL SQ SCH (20:56)
[2020-09-29] MEDS ORDERED: PIPERACIL/TAZO 3.375 GM VIAL IV ONE (21:15)
[2020-09-29] MEDS ORDERED: NA CHLORIDE 0.9% 100 ML ONE (21:26)
[2020-09-30] MEDS ORDERED: PIPERACIL/TAZO 3.375 GM VIAL IV ONE (00:47)
[2020-09-30] MEDS: PIPER/TAZO/NS 3.375gm 3.375 GM/100 ML BAG IV SCH ×3 (00:51→16:44)
[2020-09-30] MEDS ORDERED: NA CHLORIDE 0.9% 100 ML ONE (00:58)
[2020-09-30] MEDS: ALBUTEROL 2.5 MG/3 ML NEB SOL NEB SCH ×4 (01:40→21:05)
[2020-09-30] MEDS: IPRATROPIUM BROM 0.5MG/2.5ML NEB SCH ×4 (01:40→21:05)
[2020-09-30 01:52] VITALS: BMI 19.1
--- NOTE | 2020-09-30 04:22 | CON ---
Date of Consultation: 09/29/2020 Reason For Service: Small bowel obstruction. History Of Present Illness: This is a case of an 79-year-old patient complaining of nausea, vomiting , and abdominal cramping since about 2 days ago last . He had some gumbo a day before and th en start to feel that. Today, he was not feeling better, so he decided to go to [facility], which is a cross the street, where he was diagnosed with small bowel obstruction. The primary doctor, Dr. Rose and I were called. We can only accept the patient in this institution. The patient is sleepy. He f eels so tired. There is limitation in the amount of information we can get from him. Review of Systems: As per H and P. Allergies: INCLUDE MORPHINE. Medications: Include docusate, aspirin, Bactrim, tamsulosin, levothyroxine, Lasix. Past Surgical History: The patient has a midline incision, cholecystectomy, carotid surgery, coronar y artery bypass. Social History: He does not smoke. He does not drink alcohol. Family History: Noncontributory. Physical Examination: General: The patient is awake, in no distress. Chest: Clear. Abdomen: Soft and depressible. No guarding or rebound. Softly distended.. Extremities: Good capillary refill. Laboratory Data: Blood workwas done at [facility]. WBC count of 12.3 with hemoglobin of 14.6. Glucos e 135. Sodium is 141, potassium 4.4. CAT scan of the abdomen and pelvis, we have the report from [facility] showing small bowel obstruction, but we do not have the films here and the official result. Assessment: This is an 79-year-old patient with bowel obstruction on imaging. The patient is now be tter. The abdomen is softer. From the surgical standpoint, we are going to keep in observation over night. We are going repeat the x-rays in the morning. If we see the x-rays clinically improved, the n we will proceed accordingly with diet. If he does not improve, then we will continue with bowel re st and eventually do a small bowel series. I will follow the patient with you and give more recommen dations as the case develops. CECILY/YUNIER Voice ID: [id number] Report ID: [id number]
[2020-09-30 06:28] LABS: Absolute Lymphocytes (CBC) 0.5 K/uL (0.7-4.9); Basophils % 0.4 % (0-1.3); Hematocrit 36.1 % (39.6-49.0); Lymphocytes % 10.3 % (15.3-44.8); MPV 7.5 fL (7.6-11.3); RBC Red Blood Cell Count 3.56 M/uL (4.33-5.43)
[2020-09-30 06:59] LABS: Albumin 3.1 g/dL (3.4-5.0); Bilirubin Total 0.5 mg/dL (0.2-1.0); Magnesium 2.5 mg/dL (1.8-2.4); Potassium 3.1 mmol/L (3.5-5.1); Protein, Total 5.7 g/dL (6.4-8.2); Thyroid Stimulating Hormone 0.231 uIU/mL (0.360-3.740)
[2020-09-30] MEDS: FAMOTIDINE 20 MG/2 ML VIAL IV SCH (08:55)
[2020-09-30] MEDS: HEPARIN 5000 UNIT/ML 1 ML VIAL SQ SCH ×2 (08:55→19:53)
[2020-09-30] MEDS: D5 0.9 NS 1,000 ML IV SCH (08:55)
[2020-09-30] MEDS ORDERED: KCL 20 MEQ/100 mL IVPB 20 MEQ/100 ML BAG IV SCH (09:00)
--- NOTE | 2020-09-30 10:22 | PN ---
Date of Progress Note: 09/30/2020 Reason For Service: Small bowel obstruction. History Of Present Illness: This is the case of an 79-year-old patient, who came last night with bow el obstruction. He was seen initially at the [facility], thus far we do not have films in this institu tion, but the report since we do not have films shows mild small bowel obstruction. The patient was admitted to the hospital for observation and surgical consult was obtained. This morning, the patien t feels great. He says that the distention is less. He feels like he has good rest. No nausea, no vomiting, although no bowel movement yet. Physical Examination: Chest: Clear. Abdomen: Soft and depressible. No guarding or rebound. Softly distended. Diagnostic Studies: X-ray is still showing some fluid levels in the intestines, cannot compare with the previous one, but still what we saw before either ileus or bowel obstruction. Plan: We may give him a sip of water, but we advised him not to take full diet yet and we are awaiti ng for him to pass flatus and have bowel movement. Ambulation will be advised. CECILY/YUNIER Voice ID: [id number] Report ID: [id number]
[2020-09-30] MEDS: D5 0.45 NS 1,000 ML IV SCH (11:00)
[2020-09-30] MEDS ORDERED: POTASSIUM CL SA 10 MEQ TAB PO ONE (11:00)
--- NOTE | 2020-09-30 12:04 | RAD REPORT ---
EXAM DESCRIPTION: RAD - Chest Single View - 09/30/2020 6:44 am CLINICAL HISTORY: SBO Chest pain. COMPARISON: Chest Pa And Lat (2 Views) dated 05/15/2018; Chest Pa And Lat (2 Views) dated 05/13/2018 ; CHEST SINGLE VIEW dated 04/08/2012 FINDINGS: Portable technique limits examination quality. The lungs are grossly clear. Small left pleural effusion is noted. The heart is normal in size. Multi lead pacer device is present.
--- NOTE | 2020-09-30 12:05 | RAD REPORT ---
EXAM DESCRIPTION: RAD - Abdomen W Erect - 09/30/2020 6:43 am CLINICAL HISTORY: SBO Pain COMPARISON: No comparisons FINDINGS: Several prominent small bowel loops are present in the abdomen, greatest in the left aspec t of the abdomen. This suggests adynamic ileus or developing mechanical small-bowel obstruction. No e vidence of pneumoperitoneum. Follow-up radiograph would be recommended in 24-48 hours.
[2020-09-30] MEDS: POTASSIUM CL SA 10 MEQ TAB PO SCH (19:53)
[2020-09-30] MEDS: ONDANSETRON 4 MG/2 ML VIAL IV PRN (20:46)
[2020-10-01] MEDS: D5 0.45 NS 1,000 ML IV SCH (00:20)
[2020-10-01] MEDS: PIPER/TAZO/NS 3.375gm 3.375 GM/100 ML BAG IV SCH ×3 (00:40→17:00)
[2020-10-01] MEDS: ALBUTEROL 2.5 MG/3 ML NEB SOL NEB SCH ×4 (01:45→19:30)
[2020-10-01] MEDS: IPRATROPIUM BROM 0.5MG/2.5ML NEB SCH ×4 (01:45→19:30)
[2020-10-01 04:36] LABS: Absolute Lymphocytes (CBC) 0.8 K/uL (0.7-4.9); Basophils % 0.3 % (0-1.3); Hematocrit 37.7 % (39.6-49.0); Lymphocytes % 13.9 % (15.3-44.8); RBC Red Blood Cell Count 3.66 M/uL (4.33-5.43)
[2020-10-01 04:46] LABS: Magnesium 2.6 mg/dL (1.8-2.4); Potassium 3.4 mmol/L (3.5-5.1)
--- NOTE | 2020-10-01 08:30 | RAD REPORT ---
EXAM DESCRIPTION: RAD - Abdomen W Erect - 10/01/2020 8:23 am CLINICAL HISTORY: SBO COMPARISON: Abdomen W Erect dated 09/30/2020 TECHNIQUE: Supine and upright views of the abdomen were obtained. FINDINGS: Left lung base pleural effusion is still present. Chest is not fully imaged on this study. No free air under the diaphragm. Multiple distended and dilated small bowel loops are present in a pa ttern slightly improved from the comparison study. Air is seen throughout nondilated colon from cecum to rectum. This is also stable pattern. No pneumatosis. IMPRESSION: Multiple distended and dilated small bowel loops slightly improved from comparison. No free air or pneumatosis.
[2020-10-01] MEDS: HEPARIN 5000 UNIT/ML 1 ML VIAL SQ SCH ×2 (09:00→20:38)
[2020-10-01] MEDS: POTASSIUM CL SA 10 MEQ TAB PO SCH ×2 (09:00→20:38)
[2020-10-01] MEDS: FAMOTIDINE 20 MG/2 ML VIAL IV SCH (09:00)
[2020-10-01] MEDS ORDERED: D5 0.45 NS 1,000 ML IV SCH (10:38)
--- NOTE | 2020-10-01 14:43 | ECHO ---
HEIGHT: 5 ft 6 in WEIGHT: 118 lb 4.8 oz DATE OF STUDY: 10/01/[address]: Samson Rose MD 2-DIMENSIONAL: YES M.MODE: YES DOPPLER: YES COLOR FLOW: YES TDS: PORTABLE: DEFINITY: BUBBLE STUDY: DIAGNOSIS: CONGESTIVE HEART FAILURE CARDIAC HISTORY: CATHERIZATION: YES SURGERY: NO PROSTHETIC VALVE: NO PACEMAKER: YES MEASUREMENTS (cm) DIASTOLIC (NORMALS) SYSTOLIC (NORMALS) IVSd 1.3 (0.6-1.2) LA Diam 4.1 (1.9-4.0) LVEF 55-60% LVIDd 4.0 (3.5-5.7) LVIDs 2.3 (2.0-3.5) %FS 42% LVPWd 1.3 (0.6-1.2) Ao Diam 2.8 (2.0-3.7) 2 DIMENSIONAL ASSESSMENT: RIGHT ATRIUM: NORMAL LEFT ATRIUM: ENLARGED RIGHT VENTRICLE: PACEMAKER LEAD LEFT VENTRICLE: MILD LEFT VENTRICULAR HYPERTROPHY TRICUSPID VALVE: MODERATE TRICUSPID REGURGITATION MITRAL VALVE: MILD MITRAL REGURGITATION PULMONIC VALVE: NORMAL AORTIC VALVE: MILD AORTIC INSUFFIENCY PERICARDIAL EFFUSION: NONE AORTIC ROOT: NORMAL LEFT VENTRICULAR WALL MOTION: NORMAL DOPPLER/COLOR FLOW: SEE BELOW COMMENTS: NORMAL LEFT VENTRICULAR EJECTION FRACTION 55-60% WITH NORMAL WALL MOTION. MODERATE TO SEVERE DIASTOLIC DYSFUNCTION WITH ELEVATED FILLING PRESSURE. MODERATE PULMONARY HYPERTENSION WITH RIGHT VENTRICULAR SYSTOLIC PRESSURE OF 50-55% mmHg. MILD LEFT VENTRICULAR HYPERTENSION. MILD MITRAL REGURGITATION, MILD AORTIC INSUFFIENCY, MODERATE TRICUSPID REGURGITATION. LEFT ATRIAL ENLARGEMENT. RIGHT SIDED PACEMAKER. TECHNOLOGIST: VIOLETA BELTRAN
--- NOTE | 2020-10-01 17:40 | PN ---
Diagnosis: Small bowel obstruction. DICTATION ENDS HERE HM/MODL Voice ID: [id number] Report ID: [id number]
--- NOTE | 2020-10-01 21:55 | PN ---
Date of Progress Note: 10/01/2020 Subjective: The patient was seen this morning for followup. No new complaints or problems reported by the patient. Objective: General: He was lying in bed, sleeping, easily arousable, not in distress. Vital Signs: Reviewed. HEENT: Unremarkable. Lungs: Clear to auscultation. Heart: Sounds normal. Abdomen: Soft. Bowel sounds normal. No guarding, rigidity, tenderness, distention. Extremities: No leg edema. Laboratory Data: White count 5.7, hemoglobin 11.9, platelets 140. Sodium 147, potassium 3.4, chlori de 115, bicarb 24, BUN 25, creatinine 1.47, glucose 84. Impression: 1.Small bowel obstruction. 2.Chronic obstructive pulmonary disease. 3.Hypokalemia. 4.Anemia. Plan: We will go ahead and replace potassium per order. Continue IV fluids, but reduce rate to 40 c c/hour. Today's abdominal x-ray results reviewed with Dr. Brennan and it has shown improvement in s mall bowel obstruction and Dr. Brennan has allowed the patient to start on clear liquid diet, which was ordered. I will see him tomorrow for followup. Possible discharge to go home tomorrow depending on how he tolerates his diet. Meanwhile, we will continue current empiric antibiotics. I will see him tomorrow for followup. REYNA/MODL Voice ID: [id number] Report ID: [id number]
[2020-10-01] MEDS: ONDANSETRON 4 MG/2 ML VIAL IV PRN (22:06)
[2020-10-02] MEDS: PIPER/TAZO/NS 3.375gm 3.375 GM/100 ML BAG IV SCH ×3 (01:00→17:00)
[2020-10-02] MEDS: IPRATROPIUM BROM 0.5MG/2.5ML NEB SCH ×4 (02:20→19:46)
[2020-10-02] MEDS: ALBUTEROL 2.5 MG/3 ML NEB SOL NEB SCH ×4 (02:20→19:46)
--- NOTE | 2020-10-02 08:48 | RAD REPORT ---
EXAM DESCRIPTION: RAD - Abdomen W Erect - 10/02/2020 8:32 am CLINICAL HISTORY: Abdominal pain FINDINGS: Overall no significant change in the appearance of the bowel gas pattern. Mildly dilated loops of small bowel persist. Air is present throughout portions of the colon. This ma y represent an adynamic ileus or partial small bowel obstruction No free air seen beneath the diaphragm
[2020-10-02] MEDS: FAMOTIDINE 20 MG/2 ML VIAL IV SCH (09:00)
[2020-10-02] MEDS: HEPARIN 5000 UNIT/ML 1 ML VIAL SQ SCH ×2 (09:39→21:40)
[2020-10-02] MEDS: POTASSIUM CL SA 10 MEQ TAB PO SCH ×2 (09:39→21:40)
--- NOTE | 2020-10-02 13:27 | PN ---
Date of Progress Note: 10/02/2020 Diagnosis: Small bowel obstruction. Subjective: The patient is doing better. He is passing some gas, but still some mild abdominal dist ention. The x-ray today shows also some fluid levels. Objective: Chest: Clear. Abdomen: Soft and depressible. No guarding or rebound, but still softly distended. Plan: Based on the clinical findings and x-rays, I discussed the case with Dr. Rose. We are going t o hold back diet and then before we advance the diet, we are going to do a small bowel series to unde rstand how his intestines are working. Trying to differentiate between the ileus and complete obstru ction, so the test was ordered. The patient understood. understood and they agreed with the pl laura. CECILY/YUNIER Voice ID: [id number] Report ID: [id number]
[2020-10-02] MEDS: ONDANSETRON 4 MG/2 ML VIAL IV PRN (18:12)
--- NOTE | 2020-10-02 23:00 | PN ---
Date of Progress Note: 10/02/2020 Subjective: The patient was seen this morning for followup. No new complaints or problems reported by him. Sleeping, easily arousable, not in distress. Denies any abdominal pain. Did not have any b owel movement yesterday, but has been passing some gas from rectum. Ambulated well yesterday as he r eports. No nausea. No vomiting. Objective: Vital Signs: Reviewed. HEENT: Unremarkable. Lungs: Clear to auscultation. Heart: Sounds normal. Abdomen: Soft. Bowel sounds normal. No guarding, rigidity, tenderness, or distention. Extremities: No leg edema. Laboratory Data: Abdominal x-ray results reviewed. Impression: 1.Small bowel obstruction. 2.Chronic obstructive pulmonary disease. 3.Chronic systolic congestive heart failure. Plan: We will go ahead and continue current medications. The patient's IV fluid was discontinued. We did try the order to advance his diet this morning, but after abdominal x-ray results, Dr. Ewelina pablo contacted me and the patient will be back on clear liquid diet, and we will re-evaluate him again t omorrow. We will continue current empiric antibiotics. His echocardiogram done during this hospital ization, which was yesterday shows ejection fraction of 55% to 60%, moderate to severe diastolic dysf unction, moderate pulmonary hypertension, moderate tricuspid regurgitation, mild mitral and aortic regurgitation. I will see him tomorrow for followup. REYNA/MODL Voice ID: [id number] Report ID: [id number]
[2020-10-03] MEDS: PIPER/TAZO/NS 3.375gm 3.375 GM/100 ML BAG IV SCH ×3 (00:03→18:01)
[2020-10-03] MEDS: IPRATROPIUM BROM 0.5MG/2.5ML NEB SCH ×4 (02:30→19:35)
[2020-10-03] MEDS: ALBUTEROL 2.5 MG/3 ML NEB SOL NEB SCH ×4 (02:30→19:35)
[2020-10-03] MEDS: D5 0.9 NS 1,000 ML IV SCH ×2 (05:39→18:20)
[2020-10-03 05:59] LABS: Absolute Lymphocytes (CBC) 0.8 K/uL (0.7-4.9); Basophils % 0.3 % (0-1.3); Hematocrit 38.3 % (39.6-49.0); Lymphocytes % 12.4 % (15.3-44.8); MPV 7.9 fL (7.6-11.3); RBC Red Blood Cell Count 3.78 M/uL (4.33-5.43)
[2020-10-03 06:15] LABS: Magnesium 2.4 mg/dL (1.8-2.4); Potassium 4.3 mmol/L (3.5-5.1)
[2020-10-03] MEDS: HEPARIN 5000 UNIT/ML 1 ML VIAL SQ SCH ×2 (08:08→23:36)
[2020-10-03] MEDS: POTASSIUM CL SA 10 MEQ TAB PO SCH ×2 (08:24→23:36)
[2020-10-03] MEDS: FAMOTIDINE 20 MG/2 ML VIAL IV SCH (08:24)
--- NOTE | 2020-10-03 12:34 | PN ---
Date of Progress Note: 10/03/2020 Diagnosis: Small bowel obstructions Subjective: He is feeling better. Physical Examination: Has not changed. He is better now with abdomen soft and depressible. The x-ray yesterday still show ing some fluid level, we are not sure if the area is resolved completely. Plan: Ambulation. He is still waiting on a small bowel series result. We discussed with the patien t's also. Once we have the result, we will discuss the findings and see if we can advance diet or just discuss once again surgical interventions. CECILY/YUNIER Voice ID: [id number] Report ID: [id number]
--- NOTE | 2020-10-03 17:32 | RAD REPORT ---
EXAM DESCRIPTION: RAD - Small Bowel Series - 10/03/2020 4:52 pm CLINICAL HISTORY: Abdominal pain/ COMPARISON: None. FINDINGS: Contrast enters the colon by approximately 1 3 hours. The mucosal folds of the small bowel appear normal. No permanent filling defects, obstructing or constricting lesions are seen. Mild dilatation of jejunum. The ileum is normal caliber. IMPRESSION: Mild dilatation of jejunum. I suspect the patient has a mild partial obstruction in the region of distal jejunum/proximal ileum
[2020-10-04] MEDS: PIPER/TAZO/NS 3.375gm 3.375 GM/100 ML BAG IV SCH ×3 (00:40→17:00)
[2020-10-04] MEDS: IPRATROPIUM BROM 0.5MG/2.5ML NEB SCH ×4 (02:00→20:00)
[2020-10-04] MEDS: ALBUTEROL 2.5 MG/3 ML NEB SOL NEB SCH ×4 (02:00→20:00)
--- NOTE | 2020-10-04 08:31 | PN ---
Date of Progress Note: 10/03/2020 Subjective: The patient was seen this morning for followup. Denied any complaints. Lying in bed, not in any distress. Denies any shortness of breath. No abdominal pain. No nausea. No vomiting. Objective: Vital Signs: Reviewed. HEENT: Unremarkable. Lungs: Clear to auscultation. No wheezing. No rales. Heart: Sounds normal. Abdomen: Soft. Bowel sounds normal. No guarding, rigidity, tenderness, or distention. Extremities: No leg edema. Laboratory Data: White count 6.5, hemoglobin 12.6, platelets 143. Sodium 143, potassium 4.3, chloride 115, bicarb 20, BUN 10, creatinine 1.19, glucose 94. Impression: 1. Small bowel obstruction. 2. Chronic obstructive pulmonary disease. 3. Chronic systolic congestive heart failure. 4. Anemia, unspecified. 5. Thrombocytopenia. Plan: We will go ahead and continue IV fluid as patient was n.p.o. for small bowel series, D5 normal saline, IV fluid was ordered, which we will continue. Continue to follow with Dr. Brennan. Continue current empiric antibiotics and ambulation was encouraged. I will see him tomorrow for followup. REYNA/MODL Voice ID: [id number] Report ID: [id number] JAQUAN
[2020-10-04] MEDS: FAMOTIDINE 20 MG/2 ML VIAL IV SCH (09:00)
[2020-10-04] MEDS: D5 0.9 NS 1,000 ML IV SCH (09:58)
[2020-10-04] MEDS: POTASSIUM CL SA 10 MEQ TAB PO SCH ×2 (09:59→21:45)
[2020-10-04] MEDS: HEPARIN 5000 UNIT/ML 1 ML VIAL SQ SCH ×2 (09:59→21:45)
--- NOTE | 2020-10-04 16:08 | PN ---
Date of Progress Note: 10/04/2020 Diagnosis: Small bowel obstruction. Subjective: Mr. Venegas is an 79-year-old patient who comes to us with on and off history of abdominal distention and constipation and partial small bowel obstruction. The patient has small bowel series done yesterday shows the fluid coming through, although some areas may have some mild partial small b owel obstruction as per radiologist. The patient is tolerating diet, passing flatus, having bowel mo vement. Objective: Chest: Clear. Abdomen: Soft and depressible. Small bowel series discussed with the patient. I had a long conversation for the last half an hour w ith him and the patient's and family member. The patient has a ventral hernia, although it is n ot the main cause of the obstruction right now and eventually this will have to be fixed, so intestin es although incarcerated is reducible made somehow as he develops constipation and bowel distention, this hernia will be more pronounced. So, it is good to have it fixed, although it is hard to see if this is the right time since the patient has the bowel obstruction and also has not been able to eat proper calories to be able to recover better, but if it is not done, then electively should be done. He has the option of laparotomy, possible resection, possible ostomy looking for narrow points in the small bowel, but he has to understand that, that will create more scar tissue and probably the possi bility of having more obstructions in the future and more often, so he will also have to be careful w hen he makes that decision. He wants to try diet first. We asked him. He has to chew his food, pro bably blenderize his food all the time since liquid is passing through, but he may have an issue with solid food. We also encouraged him to see his dentist to make sure his dentures are proper for proper chewing. We are going to advance diet to pureed diet. His abdomen is benign. HM/MODL Voice ID: [id number] Report ID: [id number]
[2020-10-05] MEDS: PIPER/TAZO/NS 3.375gm 3.375 GM/100 ML BAG IV SCH ×2 (00:42→10:11)
[2020-10-05] MEDS: D5 0.9 NS 1,000 ML IV SCH (00:44)
[2020-10-05] MEDS: ALBUTEROL 2.5 MG/3 ML NEB SOL NEB SCH ×3 (01:45→13:16)
[2020-10-05] MEDS: IPRATROPIUM BROM 0.5MG/2.5ML NEB SCH ×3 (01:45→13:16)
[2020-10-05] MEDS ORDERED: D5 0.9 NS 1,000 ML IV SCH (05:56)
[2020-10-05 07:08] VITALS: O2SAT 95
--- NOTE | 2020-10-05 08:51 | PN ---
Date of Progress Note: 10/04/2020 Subjective: The patient was seen for followup. No new complaints or problems reported. He was lyin g in bed, not in any distress. Denies any complaints this morning. No abdominal pain, nausea, vomit ing. He has had 2 bowel movement overnight. Objective: Vital Signs: Reviewed. HEENT: Unremarkable. Lungs: Clear to auscultation. Heart: Sounds normal. Abdomen: Soft. Bowel sounds normal. No guarding, rigidity, tenderness, or distention. Extremities: No leg edema. Impression: 1.Small bowel obstruction. 2.Chronic obstructive pulmonary disease. 3.Chronic systolic congestive heart failure. Plan: We will continue current medication. Continue to give IV Zosyn and IV fluid. Dr. Mika godinez ordered some water with ice chips and later he also started the patient on diet today. I will see him tomorrow for followup. The patient was encouraged to ambulate. Other medical problems are stabl e at this point. REYNA/MODL Voice ID: [id number] Report ID: [id number]
[2020-10-05] MEDS: FAMOTIDINE 20 MG/2 ML VIAL IV SCH (09:00)
[2020-10-05] MEDS: HEPARIN 5000 UNIT/ML 1 ML VIAL SQ SCH (09:00)
[2020-10-05 12:34] VITALS: BP 167/77; TEMP 98
--- NOTE | 2020-10-05 21:39 | DS ---
Date of Discharge: 10/05/2020 Disposition: Discharged to go home. Physical Examination: HEENT: Unremarkable. Lungs: Clear to auscultation. Abdomen: Soft. Bowel sounds normal. No guarding, rigidity, tenderness, distention. Extremities: No leg edema. Discharge Medications And Instructions: 1. Continue all prior home medications. 2. Follow up at my office next week on 10/08/2020 at 9 a.m. 3. Follow up with Dr. Brennan next week and the patient to call his office for followup. 4. Diet will be pureed diet until further instruction. Final Diagnoses: 1. Small bowel obstruction. 2. Volume depletion. 3. Hypernatremia. 4. Hypokalemia. 5. Anemia, unspecified. 6. Thrombocytopenia. 7. Chronic obstructive pulmonary disease. 8. Chronic systolic congestive heart failure. Hospital Course: An 79-year-old very pleasant male patient, admitted to the hospital with abdominal pain, nausea, vomiting. Please see dictated H and P for more information. After the patient came to emergency room, he went to in fact [facility] and he was evaluated. Further blood work was done. CAT scan of the abdomen was done. He was diagnosed as having small bowel obstruction and the patient needed hospital admission, so I was contacted and the patient was directly admitted to our hospital from [facility] emergency room. Dr. Brennan from General Surgery was consulted and initially the patient was kept n.p.o. He did not require any nasogastric tube insertion. IV fluid was given. IV antibiotic, Zosyn was started. Overall his condition improved with conservative treatment. He started to have bowel movement. He did not have any nausea and vomiting after admission to the hospital. Subsequently, he was started on clear liquid diet and he tolerated that very well. Small bowel series was done during this hospitalization as well. Clinically, he is improved. Denies any other abdominal pain, no nausea, no vomiting, and now recent pureed diet, which he is tolerating very well. Dr. Brennan wants him to stay on pureed diet until further instruction. The patient will be discharged to go home in stable condition today with above-mentioned medications and instructions. REYNA/MODL Voice ID: [id number] Report ID: [id number] [facility]
--- NOTE | 2020-10-28 21:39 | HP ---
Date of Admission: 09/30/2020 Chief Complaint: Abdominal pain, nausea, vomiting. History Of Present Illness: This is an 79-year-old very pleasant male patient, who went to [facility] emergency room with above-mentioned complaints. Further evaluation including routine blood work and CAT scan was done at this particular facility showing small bowel obstruction and arrangements were made for the patient to be admitted to our hospital. I saw him this morning. He denies any other complaints. No hematemesis. No blood in stool. Allergies: MORPHINE CAUSING AGITATION. Medications: Acetazolamide 250 mg daily, Ventolin inhaler p.r.n., aspirin 81 mg daily, clopidogrel 75 mg daily, docusate sodium 100 mg daily, furosemide 40 mg 2 times a day, Atrovent inhaler 3 times a day, Synthroid 112 mcg daily, Nitrostat p.r.n., potassium chloride 20 mEq daily, Entresto 49/51 mg 2 times a day, and tamsulosin 0.4 mg daily. Review of Systems: GI: As mentioned above. All other systems reviewed and negative. Past Medical History: Significant for allergic rhinitis, hypothyroidism, COPD, hypertension, hyperlipidemia, chronic atrial fibrillation, chronic kidney disease, lymphedema, anemia due to chronic kidney disease. Past Surgical History: Pacemaker placement, carotid artery stent placement in both carotids, cholecystectomy, left hip surgery, and right leg surgery. Family History: Significant for father , had IN and cerebral aneurysm; mother , had IN and diabetes; and sister , had diabetes. Social History: Prior history of smoking. Use of alcohol very rarely. Physical Examination: Vital Signs: Height 5 feet 6 inches. Temperature when he first came in was 97.5, pulse rate was 77, blood pressure was 136/64, and oxygen saturation of 97%. Weight 118 pounds. General: Awake, alert, oriented, not in distress. HEENT: Head atraumatic, normocephalic. Conjunctivae nonerythematous. Sclerae white. Mouth, no thrush or edema noted. Ears/Nose, no mass, lesion, discharge noted. Neck: Supple. No JVD, lymph nodes, bruit, thyromegaly noted. Lungs: Bilateral good equal air entry. Clear to auscultation. No rhonchi. No rales. Heart: Normal heart sounds. No murmur or gallop. Abdomen: Presence of mild tenderness. Bowel sounds normoactive. No guarding or rigidity. No rebound tenderness. No distention. No hepatosplenomegaly. No bruit. Extremities: No leg edema. No calf tenderness. Skin: No rash, ulcer, cellulitis. Lymphatics: No lymph node enlargement in neck, supraclavicular, infraclavicular region. Neuro: No focal neurological deficit. Chest: Unremarkable. External Genitalia: Deferred. Rectal: Deferred. Laboratory Data: White count 5.3, hemoglobin 11.8, platelets 142. Sodium 147, potassium 3.1, chloride 115, bicarb 24, BUN 35, creatinine 1.83, glucose 112. Liver function tests unremarkable. TSH 0.23. Outside CAT scan result reviewed. Chest x-ray shows lungs grossly clear, small left pleural effusion noted. Abdominal x-ray shows several prominent small bowel loops. Impression: 1. Small bowel obstruction. 2. Volume depletion. 3. Hypernatremia. 4. Hypokalemia. 5. Anemia, unspecified. 6. Thrombocytopenia. 7. Chronic obstructive pulmonary disease. 8. Chronic systolic congestive heart failure. Plan: Admit the patient to hospital for further evaluation and management of this problem. The patient is appropriate for inpatient and is expected to spend 2 midnights in hospital. DVT prophylaxis will be given per order. We will go ahead and give empiric antibiotic. Consult general surgeon, Dr. Brennan. Home medications will be continued per order. IV fluid will be given per order, and details and plan of treatment discussed with the patient and patient's who was at bedside. We will see him tomorrow for followup. We will get an echo with Doppler on him. This H and P was dictated on 09/30/2020. Unfortunately, transportation manager service was not able to find this H and P, so this is a repeat dictation on this patient for this admission. REYNA/MODL Voice ID: [id number]
== END 2020-10-05 14:21 | disposition home or self-care (01) | DRG 389 ==
LOC: 2ND 18:56
PROVIDERS: ADMIT Internal Medicine; ATTEND Internal Medicine
DX: K56.600 Partial intestinal obstruction, unspecified as to cause (principal); I50.22 Chronic systolic (congestive) heart failure; E87.6 Hypokalemia; I07.1 Rheumatic tricuspid insufficiency; D64.9 Anemia, unspecified; K43.9 Ventral hernia without obstruction or gangrene; I35.1 Nonrheumatic aortic (valve) insufficiency; I27.20 Pulmonary hypertension, unspecified; D69.6 Thrombocytopenia, unspecified; J44.9 Chronic obstructive pulmonary disease, unspecified; Z79.82 Long term (current) use of aspirin; Z79.890 Hormone replacement therapy; Z79.899 Other long term (current) drug therapy; Z90.49 Acquired absence of other specified parts of digestive tract; Z95.1 Presence of aortocoronary bypass graft; Z88.5 Allergy status to narcotic agent
CPT/HCPCS: 36415; 71045; 74019; 74250; 80048; 80053; 82947; 83735; 84132; 84145; 84443; 85025; 93306; 97110; 97112; 97116; 97161; 97530; J1644; J2405; J2543; J3480; J7042; J7799